=== PATIENT | female | born 1970 | race Caucasian/White ===

== ENCOUNTER 2024-09-15 12:14 | Emergency (ER) | payer OTHER, SELFPAY ==
[2024-09-15 12:20] VITALS: BP 118/78; PULSE 90; RESP 16; TEMP 37.2; O2SAT 99
--- NOTE | 2024-09-15 12:37 | ED.URI ---
HPI - URI/Sore Throat General Chief Complaint: Upper Respiratory Infection Stated Complaint: Cough/Fever/Headache/Diarrhea Time Seen by Provider: 09/15/24 12:37 Source: patient Mode of arrival: ambulatory Limitations: no limitations History of Present Illness HPI Narrative: 54 yo Female presents with complaint of sore throat, cough, nasal congestion, fatigue, body aches, fever for 4 days. Reports mild diarrhea. Did try waaf-xir-utvheha Robitussin to treat cough but did not like the way that made her feel. Is taking ibuprofen and Tylenol to treat pain. Denies nausea and vomiting. All systems reviewed and negative except as noted above. Related Data Allergies Allergy/AdvReac Type Severity Reaction Status Date / Time No Known Allergies Allergy Verified 09/15/24 12:34 Review of Systems Review of Systems: CONSTITUTIONAL: Reports fever, chills, or sweats. EYES: Denies visual changes, redness, or discharge. ENT: reports rhinorrhea, congestion, sore throat. Denies otalgia. CARDIOVASCULAR: Denies chest pain, palpitations, or edema. RESPIRATORY: reports cough. Denies dyspnea. GASTROINTESTINAL: Denies abdominal pain, nausea, vomiting, or diarrhea. GENITOURINARY: Denies dysuria or hematuria. SKIN: Denies rash or itching. MUSCULOSKELETAL: Denies back pain, joint pain, or myalgia. NEUROLOGIC: Denies headache, numbness, or weakness. PSYCHIATRIC: Denies anxiety or depression. All other systems reviewed are negative, except as documented in HPI. PMFSH Comments At time of signature, agree with nursing past medical, surgical, social and family history. There is no relevant family history pertinent to the presenting complaint. Exam Narrative: GENERAL: This is a well-nourished, well-developed patient, in no apparent distress. HEAD: normocephalic, atraumatic. EYES: PERRL. Sclera clear/white. Vision is grossly intact. EARS: External ears normal, auditory canals clear and without drainage, TMs normal without perforation. Hearing grossly intact. NOSE: External nose normal with clear nasal drainage with mild congestion THROAT: Mucous membranes moist, mild erythema without significant swelling or exudates NECK: Neck supple, non-tender without lymphadenopathy, masses or thyromegaly. CARDIOVASCULAR: Regular rate and rhythm without murmurs, gallops, or rubs. RESPIRATORY: Clear to auscultation. Breath sounds equal bilaterally. No wheezes, rales, or rhonchi. SKIN: warm, Dry, intact with no suspicious lesions or rash, good texture and turgor. NEURO: awake, alert, and oriented to person, place and time. There were no obvious focal neurologic abnormalities. EXTREMITIES: No joint tenderness, effusion, or edema noted. Course Course Level of Care: Express Care Visit Vital Signs Vital signs: Vital Signs Temperature 37.2 C 09/15/24 12:20 Pulse Rate 90 09/15/24 12:20 Respiratory Rate 16 09/15/24 12:20 Blood Pressure 118/78 09/15/24 12:20 Pulse Oximetry 99 09/15/24 12:20 Oxygen Delivery Room Air 09/15/24 12:20 Temperature 37.2 C 09/15/24 12:20 Pulse Rate 90 09/15/24 12:20 Respiratory Rate 16 09/15/24 12:20 Blood Pressure 118/78 09/15/24 12:20 Pulse Oximetry 99 09/15/24 12:20 Oxygen Delivery Room Air 09/15/24 12:20 reviewed MDM - URI/Sore Throat MDM Narrative Medical decision making narrative: patient positive for influenza A. COVID and strep negative. Strep culture ordered. Patient is well-appearing, nontoxic. Lungs clear to auscultation. Recommend she take lrbq-ldy-blwwgmx medications to treat viral symptoms. Patient is aware of diagnosis, understands and agrees to treatment plan. Anticipatory guidance given. Patient agrees to follow-up as directed and is aware of reasons to seek care at the emergency department. Portions of this record may have been created with voice recognition software Differential Diagnosis Differential diagnosis: Likely upper respiratory infection, sinusitis, viral infection, influenza and pharyngitis Discharge Plan Discharge Clinical Impression: Influenza A Patient Disposition: Home, Self-Care Condition: Stable Instructions: Influenza (ED) Additional Instructions: your influenza test was positive today. Influenza is a virus and symptoms may last 7-10 days. Taking tmbs-six-gsjkoxr medication to treat her symptoms such as DayQuil NyQuil cold and flu. Take ibuprofen every 6-8 hours as needed for pain and fever. Drink at least 64 oz of water a day. Follow-up with your primary care physician if symptoms are not improving. Patient Language: Icelandic Prescriptions: New benzonatate 200 mg capsule 200 mg PO TID PRN (Reason: cough) Qty: 20 0RF Follow-up/Referrals: Cat,Katherine Hinojosa PA [Primary Care Provider] - Time of Disposition: 12:44
[2024-09-15 12:44] LABS: EDSTREPNEGPOS1 Negative (Negative)
[2024-09-15 12:48] LABS: EDCOVIDSCREEN Negative (Negative); EDINFLUASCREEN Positive (Negative); EDINFLUBSCREEN Negative (Negative)
--- OUTSIDE RECORDS SUMMARY | 2024-09-22 18:19 | XMS_ITS | Continuity of Care Document ---
Author Organization [facility] Address [address] [place] [id number] Care Team Providers Care Machine Puller Name Role Phone Katherine Shelton Primary Care Physician Encounter [facility] Financial Number [id number] Date(s): 07/17/21 - 07/17/[address] [phone] [place] Encounter Diagnosis Encounter for screening mammogram for malignant neoplasm of breast(Final) - Discharge Disposition: Home or Self Care Attending Physician: Katherine Shelton Admitting Physician: Katherine Shelton Referring Physician: Katherine Shelton Problem List Diagnosis Diagnosis Type Effective Dates Health Status Cl inical Service Informant Encounter for screening mammogram for malignant neoplasm of breast 07/17/21 Non-Specified
--- OUTSIDE RECORDS SUMMARY | 2024-09-22 18:19 | XMS_ITS | Continuity of Care Document ---
Author Organization [facility] Address [address] [place] [phone] Care Team Providers Care Mill Platform Supervisor Name Role Phone Katherine Shelton Primary Care Physician Encounter [facility] Financial Number [id number] Date(s): 07/16/22 - 07/16/[address] [id number] Discharge Disposition: Home or Self Care Attending Physician: Katherine Shelton Admitting Physician: Katherine Shelton Referring Physician: Katherine Shelton Problem List Diagnosis Diagnosis Type Effective Dates Health Status Cl inical Service Informant Encounter for screening mammogram for malignant neoplasm of breast 07/16/22 Non-Specified Patient Care team information Care Team Personnel Name: Katherine Shelton Member Role: Primary Care Physician Address: Address: [address] [place] [id number] Care Team Related Persons Name: IKE ALVARES Address: home [address] [place], [id number]
--- OUTSIDE RECORDS SUMMARY | 2024-09-22 18:19 | XMS_ITS | Continuity of Care Document ---
Author Organization [facility] Address [address] [place] [id number] Care Team Providers Care Dental Hygienist Name Role Phone Katherine Shelton Primary Care Physician [phone] [facility] Financial Number [id number] Date(s): 07/20/23 - 07/20/[address] [phone] [place] Discharge Disposition: Home or Self Care Attending Physician: Katherine Shelton Referring Physician: Katherine Shelton Problem List Diagnosis Diagnosis Type Effective Dates Health Status Clinical Service Informant Other abnormal and inconclusive findings on diagnostic imaging of breast 07/20/23 Non-Specified Results Radiology Reports * Exam Date Time Procedure Performing Provider Status 07/20/23 10:22 AM US BREAST RIGHT LIMITED Jessika Mckeon Safety Deposit Boxes Custodian; Auth (Verified) Notes: (US BREAST RIGHT LIMITED) Reason For Exam: ABNORMAL MAMMOGRAM US BREAST RIGHT LIMITED EXAMINATION: RIGHT UNILATERAL DIGITAL DIAGNOSTIC MAMMOGRAM AND DIGITAL BREAST TOMOSYNTHESIS; RIGHT BREAST SONOGRAM HISTORY: Abnormal screening mammogram COMPARISON: Screening study 07/13/2023 TECHNIQUE: Full field digital mammographic views of the RIGHT breast were performed, including computer aided detection (CAD) and digital breast tomosynthesis (DBT). Directed ultrasound evaluation of the RIGHT breast was performed. BREAST PARENCHYMAL COMPOSITION: The breasts are heterogenously dense, which may obscure small masses. MAMMOGRAM FINDINGS: Mammographically, the focus of distortion does not persist. The rounded density in the right breast at 10 11:00 does persist. SONOGRAM FINDINGS: Directed ultrasound performed reveals a cluster of cysts. Dominant simple cyst measures 8 x 8 x 7 mm with additional smaller cysts measuring 4 mm in the vicinity. No other worrisome finding is noted. IMPRESSION: Benign findings Pending no interval breast problems, recommend resuming yearly screening mammography. Patient was notified of the findings and recommendations at the time of her examination. FINAL BI-RADS CATEGORY 2: BENIGN Letter sent: Normal -cat 09/20 . Dictating Physician: Ashlee Menendez MD Releasing Physician: Ashlee Menendez MD Signature Electronically Authorized Authorized Date/Time: 20-JUL-2023 10:37 am * Exam Date Time Procedure Performing Provider Status 07/20/23 9:51 AM MAMMO DIAG 3D UNILAT RT Gabriella Mcmahon [employer] Custodian; Auth (Verified) Notes: (MAMMO DIAG 3D UNILAT RT) Reason For Exam: ABNORMAL MAMMOGRAM MAMMO DIAG 3D UNILAT RT EXAMINATION: RIGHT UNILATERAL DIGITAL DIAGNOSTIC MAMMOGRAM AND DIGITAL BREAST TOMOSYNTHESIS; RIGHT BREAST SONOGRAM HISTORY: Abnormal screening mammogram COMPARISON: Screening study 07/13/2023 TECHNIQUE: Full field digital mammographic views of the RIGHT breast were performed, including computer aided detection (CAD) and digital breast tomosynthesis (DBT). Directed ultrasound evaluation of the RIGHT breast was performed. BREAST PARENCHYMAL COMPOSITION: The breasts are heterogenously dense, which may obscure small masses. MAMMOGRAM FINDINGS: Mammographically, the focus of distortion does not persist. The rounded density in the right breast at 10 11:00 does persist. SONOGRAM FINDINGS: Directed ultrasound performed reveals a cluster of cysts. Dominant simple cyst measures 8 x 8 x 7 mm with additional smaller cysts measuring 4 mm in the vicinity. No other worrisome finding is noted. IMPRESSION: Benign findings Pending no interval breast problems, recommend resuming yearly screening mammography. Patient was notified of the findings and recommendations at the time of her examination. FINAL BI-RADS CATEGORY 2: BENIGN Letter sent: Normal -cat 09/20 . Dictating Physician: Ashlee Menendez MD Releasing Physician: Ashlee Menendez MD Signature Electronically Authorized Authorized Date / Time: 20-JUL-2023 10:37 am Note * Event Display: Authorization to Treat Authored Date: * Event Display: Authorization to Treat Authored Date: * [facility] Rn Perioperative: PERFORM Event Display: ROI_Correspondence Authored Date: [id number] * [facility] Rn Perioperative: PERFORM Event Display: ROI_Correspondence Authored Date: [id number] Patient Care team information Care Team Personnel Name: Katherine Shelton Member Role: Primary Care Physician Address: Address: [address] [place], [place] [id number] Care Team Related Persons Name: IKE ALVARES Address: home [address] [place], [phone]
--- OUTSIDE RECORDS SUMMARY | 2024-09-22 18:20 | XMS_ITS | Encounter Summary ---
Author Organization [facility] Address [address] [place] [address]. [place], [place] [id number] [place] [id number] Care Team Providers Care Multiple Cut Off Saw Operator Name Role Phone Katherine Shelton Primary Care Provider [phone] Encounter Details Date Type Department Care Team (Latest Contact Info) Description 06/28/2023 Travel Social History Tobacco Use Types Packs/Day Years Used Date Smoking Tobacco: Former Cigarettes Smokeless Tobacco: Never Comments:stopped 25 yrs ago Alcohol Use Standard Drinks/Week Comments Yes 0 (1 standard drink = 0.6 oz pur e alcohol) socially PHQ-2 Answer Date Recorded Patient Health Questionnaire-2 Score 0 06/28/2023 Comments No Sex and Gender Information Value Date Recorded Sex Assigned at Not on file Legal Sex Female 6:43 PM CDT Gender Identity Not on file Sexual Orientation Not on file documented as of this encounter Plan of Treatment Not on file documented as of this encounter Visit Diagnoses Not on filedocumented in this encounter Additional Health Concerns Assessment Noted Time PHQ-9 Depression Total Score: 0 04/30/20 21 7:52 AM CDT documented as of this encounter Care Teams Multiple Cut Off Saw Operator Relationship Specialty [place] [address] [place] [address] PCP - General PHYSICIAN WALLPAPERER 11/07/19 documented as of this encounter
--- OUTSIDE RECORDS SUMMARY | 2024-09-22 18:20 | XMS_ITS | Clinical Summary ---
Author Organization [facility] Address [address] [place] [address]. [place], [place] [id number] [place] [id number] Care Team Providers Care Sewer Pipe Offbearer Name Role Phone Richard Shelton Primary Care Provider [phone] Allergies Active Allergy Reactions Criticality Noted Date Comments Sulfa Antibiotics Itching 11/07/2019 Medications fexofenadine 180 MG tablet Take 180 mg by mouth daily. Active Active Problems No known active problems Immunizations Name Administration Dates Next Due Flucelvax 6 Months+ (Prefilled Syringe) 06/12/20,07/17/2019 Influenza Adult (Generic) 07/26/2021,06/12/2020 Tdap (Historical Only-select from magnify glass) 12/26/2019 Family History Medical History Relation Comments Stroke Maternal Grandfather Colon Cancer Maternal Grandmother Heart Attack Paternal Grandfather Heart Disease Paternal Grandfather Multiple Sclerosis Paternal Grandmother Relation Status Comments Brother Alive Father Alive Maternal Grandfather Maternal Grandmother Mother Alive Paternal Grandfather Paternal Grandmother Social History Tobacco Use Types Packs/Day Years Used Date Smoking Tobacco: Former Cigarettes Smokeless Tobacco: Never Tobacco Cessation:Counseling Given: No Comments:stopped 25 yrs ago Alcohol Use Standard Drinks/Week Comments Yes 0 (1 standard drink = 0.6 oz pur e alcohol) socially PHQ-2 Answer Date Recorded Patient Health Questionnaire-2 Score 0 06/28/2023 Comments No Sex and Gender Information Value Date Recorded Sex Assigned at Not on file Legal Sex Female 6:43 PM CDT Gender Identity Not on file Sexual Orientation Not on file Last Filed Vital Signs Vital Sign Reading Time Taken Comments Blood Pressure 132/87 06/28/2023 1:42 PM CDT Pulse 71 06/28/2023 1:42 PM CDT Temperature 36.7 ??C (98.1 ??F) 06/28/2023 1:42 PM CD T Respiratory Rate 14 06/28/2023 1:42 PM CDT Oxygen Saturation 100% 06/28/2023 1:42 PM CDT Inhaled Oxygen Concentration - - Weight 73.9 kg (163 lb) 06/28/2023 1:42 PM CDT Height 172.7 cm (5' 8 ) 06/28/2023 1:42 PM CDT Body Mass Index 24.78 06/28/2023 1:42 PM CDT Plan of Treatment Health Maintenance Due Date Last Done Comments Hepatitis B Vaccines (1 of 3 - 19+ 3-dose series) 1991 Zoster Vaccines (1 of 2) 2022 COVID-19 Vaccine ( season) 2024 12/13/2020, 11/20/2020 Influenza Adult (#1) 2024 07/26/2021, 06/12/2020, 06/12/2020, Additional history exists Annual Physical 06/28/2024 06/28/2023, 09/2021, 04/30/2021, Additional history exists Colorectal Cancer Screening FIT-DNA (3 Years) 06/24/2025 06/24/2022, 06/24/2022 Mammogram Screening 07/20/2025 07/20/2023, 07/16/2022, 07/19/2018, Additional history exists Cervical Cancer Screening Pap Smear (Age 30 to 64) Every 3 Years 06/28/2026 06/28/2023, 05/20/2022, 04/30/2021, Additional history exists Cervical Cancer Screening Pap with HPV Testing (Age 30 to 64) Every 5 Years 06/28/2028 06/28/2023, 04/30/2021 Cervical Cancer Screening with HPV 06/28/2028 DTaP, Tdap and Td Vaccines (2 - Td or Tdap) 12/25/2029 12/26/2019 Hepatitis C 05/20/2032 Postponed from 1990 (Patient Refused) Meningococcal Vaccine Aged Out No martha marcelle eligible based on patient's age to complete this topic Pneumococcal Vaccine: Pediatrics (0 to 5 Years) and At-Risk Patients (6 to 64 Years) Aged Out No longer eligible based on patient's age to complete this topic RSV Immunizations Under 20 Months Aged Out No longer eligible based on patient's age to complete this topic Procedures Procedure Name Priority Date/Time Associated Diagnosis Comments MAMMOGRAM GENERIC (SCAN ORDER) 07/20/2023 CYTOPATH CERV/VAG THIN LAYER Routine 06/28/2023 10:11 AM CDT Cervical cancer screening HUMAN PAPILLOMAVIRUS, HIGH-RISK TYPES Routine 06/28/2023 8:00 AM CDT COLOGUARD (EXACT SCIENCE) Routine 06/24/2022 6:30 AM CDT Colon cancer screening from Last 3 Months or Most Recently Relevant to Health Maintenance Results * MAMMOGRAM GENERIC (07/20/2023) Anatomical Region Laterality Modality Other 07/20/2023 us [facility] Scanned SCANNING Final Resu lt * Cytopath Cerv/Vag Thin Layer (06/28/2023 10:11 AM CDT) THIN PREP PAP ? [facility] ?[address] ?[place] [phone] ? Department of Pathology ? Pathology Report ? CERVICAL/VAGINAL PAP SMEAR REPORT Name: TOPHER PEPE ? Age: 12 1970 (Age: 52) ?Location: [facility] Sex: F ?Collected Date: 06/28/2023 Hospital #: [id number] ?Date Received: 06/30/2023 Date Reported: 07/04/2023 Provider: RICHARD HALL INTERPRETATION CERVICAL/ENDOCERVI NAZIA: ? SATISFACTORY FOR EVALUATION. ENDOCERVICAL/TRANS FORMATION ZONE COMPONENT PRESENT. ? NEGATIVE FOR INTRAEPITHELIAL LESION OR MALIGNANCY. NEGATIVE FOR HIGH RISK HPV. The FDA approved Aptima HPV assay is an in vitro nucleic acid amplification test for the qualitative detection of E6/E7 viral messenger RNA (mRNA) from 14 high-risk types of human papillomavirus (HPV) in cervical specimens. ??The high-risk HPV types detected by the assay include: 16,18,31,33,35,39, 45,51,52,56,58,59, 66, and 68. Electronically Signed Out By SANJANA Harper (ASCP) CLINICAL HISTORY Z12.9 AND Z12.4 PAP TEST SCREENING ThinPrep Pap Test with HR HPV testing in patient > 30 years requested. Date of Last Menstrual Period: ? N/A Menstrual Status: Menstrual Suppression Contraceptive History: IUD SPECIMEN SUBMITTED CERVICAL/ENDOCERVI NAZIA ?Specimen Received:1 Thin Prep Vial, Image Assisted Pap (SMD) ? Please note: The Pap smear is not a diagnostic test. ??It is a screening test. ??Negative results on combined screening (Pap test and HPV-DNA) have a high negative predictive value (99.1-100 percent) for cervical cancer. ??The pap test is not effective in detecting cervical adenocarcinoma. [facility] 06/28/2023 10:1 1 AM CDT 06/30/2023 10:11 AM CDT Comment:CERVICAL/ENDOCERVICA L us Richard HALL PATHOLOGY/CYTOLOGY ORDERABLE S Final Result Performing Organization Address City/[facility]/ZIP Co de Phone Number [facility] [address] [place] [address], [place] [phone] * HUMAN PAPILLOMAVIRUS, HIGH-RISK TYPES (06/28/2023 8:00 AM CDT) SPECIMEN SOURCE CERVIX 06/30/2023 11:05 AM CDT [facility] HPV DNA HIGH RISK NEGATIVE NEGATIVE 07/01/2023 4:47 PM CDT [facility] Comment:SEE CYTOLOGY REPORT 06/28/2023 8:00 AM CDT us Richard HALL PATHOLOGY/CYTOLOGY ORDERABLE S Final Result [facility] [address] [place] [address], [place] [phone] * COLOGUARD (EXACT SCIENCE) (06/24/2022 6:30 AM CDT) COLOGUARD RESULT Negative Negative EXA Field Agent (CLIA #:[id number]) Comment: NEGATIVE TEST RESULT. A negative Cologuard result indicates a low likelihood that a colorectal cancer (CRC) or advanced adenoma (adenomatous polyps with more advanced pre-malignant features) ??is present. The chance that a person with a negative Cologuard test has a colorectal cancer is less than 1 in 1500 (negative predictive value >99.9%) or has an ??advanced adenoma is less than ??5.3% (negative predictive value 94.7%). These data are based on a prospective cross-sectional study of 10,000 individuals at average risk for colorectal cancer who were screened with both Cologuard and colonoscopy. (Jewel Mejia et al, N Engl J Med 2014;370(14):1286- 1297) The normal value (reference range) for this assay is negative. COLOGUARD RE-SCREENING RECOMMENDATION: Periodic colorectal cancer screening is an important part of preventive healthcare for asymptomatic individuals at average risk for colorectal cancer. ??Following a negative Cologuard result, the [place] [employer] and U.S. Multi-Society Task Force screening guidelines recommend a Cologuard re-screening interval of 3 years. References: [place] [employer] Guideline for Colorectal Cancer Screening: https://www.cancer.org/cancer/rshxu-exjenz-occzie/euumfqpql-qdwbgvvjn-jefcvbc/ac s-rec ommendations.html.; Jay HACKETT, Kari MCCARTHY, Chika PlascenciaK, Colorectal Cancer Screening: Recommendations for Physicians and Patients from the U.S. Multi-Society Task Force on Colorectal Cancer Screening , Am J Gastroenterology 2017; 112:4533-0455. TEST DESCRIPTION: Composite algorithmic analysis of stool DNA-biomarkers with hemoglobin immunoassay. ?? Quantitative values of individual biomarkers are not reportable and are not associated with individual biomarker result reference ranges. Cologuard is intended for colorectal cancer screening of adults of either sex, 45 years or older, who are at average-risk for colorectal cancer (CRC). Cologuard has been approved for use by the U.S. FDA. The performance of Cologuard was established in a cross sectional study of average-risk adults aged 50-84. Cologuard performance in patients ages 45 to 49 years was estimated by sub-group analysis of near-age groups. Colonoscopies performed for a positive result may find as the most clinically significant lesion: colorectal cancer [4.0%], advanced adenoma (including sessile serrated polyps greater than or equal to 1cm diameter) [20%] or non- advanced adenoma [31%]; or no colorectal neoplasia [45%]. These estimates are derived from a prospective cross-sectional screening study of 10,000 individuals at average risk for colorectal cancer who were screened with both Cologuard and colonoscopy. (Jewel Goodman al, N Engl J Med 2014;370(14):9678-5977.) Cologuard may produce a false negative or false positive result (no colorectal cancer or precancerous polyp present at colonoscopy follow up). A negative Cologuard test result does not guarantee the absence of CRC or advanced adenoma (pre-cancer). The current Cologuard screening interval is every 3 years. ([place] [employer] and U.S. Multi-Society Task Force). Cologuard performance data in a 10,000 patient pivotal study using colonoscopy as the reference method can be accessed at the following location: www.[employer]/results. Additional description of the Cologuard test process, warnings and precautions can be found at www.[employer].com. STOOL STOOL SPECIMEN / Unknown 06/24/2022 6:30 AM CDT 06/25/2022 1:19 PM CDT Richard HALL BODY FLUIDS AND STOOLS ORDER CASEY Final Result [facility] ([facility]) [address] [place] [address], LBE Security Master (CLIA #:[id number]) [address] [place] [address] from Last 3 Months or Most Recently Relevant to Health Maintenance Insurance [facility] Care Teams Sewer Pipe Offbearer Relationship Specialty [place] [address] [place] [address] PCP - General PHYSICIAN TRIAGE CLINICIAN 11/07/19
--- OUTSIDE RECORDS SUMMARY | 2024-09-22 18:20 | XMS_ITS | Clinical Summary ---
Author Organization [facility] Address [address] [place] [address] Care Team Providers Care Insurance Adviser Name Role Phone Danial Pereira MD Primary Care Provider [phone] [facility],non-owned Affiliates and Associated Physician Practices is amultiple site organization consisting of ambulatory clinics and hospital sitesin [place], [place], [place] and [place]. This disclosure is being madepursuant to the Care Everywhere program and may not contain all information available regarding this patient. Last updated 18.[facility] Social History Tobacco Use Types Packs/Day Years Used Date Smoking Tobacco: Never Assessed Sex and Gender Information Value Date Recorded Sex Assigned at Not on file Gender Identity Not on file Sexual Orientation Not on file Plan of Treatment Health Maintenance Due Date Last Done Comments COLOGUARD (AGES 45-75) - COL ON CA SCREENING 1972 COLON MONITORING 1972 COLONOSCOPY - COLON CA SCREENING 1972 CT COLONOGRAPHY - COLON CA SCREENING 1972 Colorectal Cancer Screening 1972 FIT - COLON CA SCREENING 1972 FLEX SIG - COLON CA SCREENING 1972 LIPID TESTING 1972 MAMMOGRAM 1972 PAP SMEAR 1972 HIV SCREENING 1987 HEPATITIS C SCREENING 08/19/1990 DTAP/TDAP/TD VACCINES (1 - Tdap) 1991 HEPATITIS B VACCINE (1 of 3 - 19+ 3-dose series) 1991 ZOSTER VACCINE (1 of 2) 2022 DEPRESSION SCREENING 09/19/2023 COVID-19 VACCINE (1 - 2023-2 5 season) 2024 INFLUENZA VACCINE (#1) 2024 HIB VACCINE Aged Out No longer eligi ble based on patient's age to complete this topic HPV VACCINE Aged Out No longer eligi ble based on patient's age to complete this topic MENINGOCOCCAL VACCINE Aged Out No martha marcelle eligible based on patient's age to complete this topic PNEUMOCOCCAL VACCINE Aged Out No long er eligible based on patient's age to complete this topic Care Teams Insurance Adviser Relationship Specialty Start Date End Date Danial Pereira MD [address] [place] [address] PCP - General 03/21/12
--- OUTSIDE RECORDS SUMMARY | 2024-09-22 18:20 | XMS_ITS | Encounter Summary ---
Author Organization [facility] Address [address] [place] [address]. [place], [place] [address] [place] [address] Care Team Providers Care Android Programmer Name Role Phone Katherine Shelton Primary Care Provider [phone] Reason for Visit * Reason Onset Date Comments Record Request 07/19/2023 Encounter Details Date Type Department Care Team (Late st Contact Info) Description 07/19/2023 Telephone [facility] Family & Internal Medicine [facility] [address] [place] [address] [place] [address] [place] [address] Record Request Social History Tobacco Use Types Packs/Day Years [...] on file documented as of this encounter Progress Notes * Janae Contreras MA - 07/27/2023 2:11 PM CST Received and sent to PCP L FILER * Janae Contreras MA - 07/19/2023 4:32 PM CDT I have faxed [facility] HIM for mammogram report documented in this encounter Plan of Treatment Not on file documented as of this encounter Visit Diagnoses Not on filedocumented in this encounter Additional Health Concerns Assessment Noted Time PHQ-9 Depression Total Score: 0 04/30/20 21 7:52 AM CDT documented as of this encounter Care Teams Android Programmer Relationship Specialty [place] [address] [place] [address] PCP - General PHYSICIAN DIRECTOR OF FINANCIAL REPORTING 11/07/19 documented as of this encounter
--- OUTSIDE RECORDS SUMMARY | 2024-09-22 18:20 | XMS_ITS | Encounter Summary ---
Author Organization [facility] Address [address] [place] [address]. [place], [place] [address] [place] [address] Care Team Providers Care Railroad Operator Name Role Phone Katherine Shelton Primary Care Provider [phone] Encounter Details Date Type Department Care Team (Latest Contact Info) Description 12/26/2019 12:03 PM CDT - 12/26/2019 11:59 PM CDT Hospital Encounter [facility] [address] [place] [address] [place] [address] [place] [address] Discharge Disposition: Home or Self Care (Routine Discharge) Social History Tobacco Use Types Packs/Day Years Used Date Smoking Tobacco: Former Cigarettes Smokeless Tobacco: Never Comments:stopped 25 yrs ago Alcohol Use Standard Drinks/Week Comments Yes 0 (1 standard drink = 0.6 oz pur e alcohol) socially Comments No Sex and Gender Information Value Date Recorded Sex Assigned at Not on file Legal Sex Female 6:43 PM CDT Gender Identity Not on file Sexual Orientation Not on file COVID-19 Exposure Response Date Recorded In the last month, have you been in contact with someone who was confirmed or suspected to have Coronavirus / COVID-19? No / Unsure 12/26/2019 7:53 AM CDT documented as of this encounter Medications at Time of Discharge fluticasone propionate (FLONASE) 50 MCG/ACT nasal sprayIndications: Bronchitis 1 spray by Nasal route daily. 18.2 mL 1 11/07/2019 05/20/2022 vitamin D2, ergocalciferol, 13088 UNITS capsule Take 50,000 Units by mouth every 7 days. 11/16/2018 05/20/2022 documented as of this encounter Progress Notes * Jillian Chisholm RN - 12/26/2019 2:05 PM CDT Pt made aware and v/u documented in this encounter Plan of Treatment Not on file documented as of this encounter Procedures Procedure Name Priority Date/Time Associated Diagnosis Comments TSH W/REFLEX Routine 12/26/2019 8:50 AM CDT [facility] COMPREHENSIVE METABOLIC PANEL Routine 12/26/2019 8:50 AM CDT Routine [facility] LIPID PANEL Routine 12/26/2019 8:50 AM CDT Routine general medical examination [facility] CBC W/DIFF AUTOMATED Routine 12/26/2019 8:50 AM CDT Routine general medical examination [facility] VITAMIN D, 25 OH Routine 12/26/2019 8:50 AM CDT Routine general medical examination at [facility] documented in this encounter Results * (ABNORMAL) CBC W/DIFF AUTOMATED (12/26/2019 8:50 AM CDT) WBC 6.1 4.4 - 11.0 x10'3/uL 12/26/2019 12:33 PM CDT [facility] RBC 5.11(H) 4.50 - 5.10 x10'6/uL 12/26/2019 12:33 PM CDT [facility] HGB 14.6 12.3 - 15.3 G/DL 12/26/2019 12:33 PM CDT [facility] HCT 44.8(H) 35.9 - 44.6 % 12/26/2019 12:33 PM CDT [facility] MCV 87.7 80.0 - 96.0 FL 12/26/2019 12:33 PM T [facility] MCH 28.6 25.3 - 30.9 PG 12/26/2019 12:33 PM T [facility] MCHC 32.6 31.0 - 34.1 G/DL 12/26/2019 12:33 PM T [facility] RDW 12.2(L) 12.4 - 15.1 % 12/26/2019 12:33 PM T [facility] PLT 269 151 - 353 x10'3/uL 12/26/2019 12:33 PM [facility] MPV 10.6 9.6 - 12.0 FL 12/26/2019 12:33 PM [facility] RBC MORPHOLOGY NORMAL 12/26/2019 12:33 PM [facility] PLT MORPH. NORMAL 12/26/2019 12:33 PM [facility] WBC MORPHOLOGY NORMAL 12/26/2019 12:33 PM [facility] LYMPHOCYTES % 36.7 15.8 - 45.0 % 12/26/2019 12:33 PM T [facility] NEUTROPHILS % 51.8 42.1 - 71.9 % 12/26/2019 12:33 PM T [facility] MONOCYTES % 9.3 5.7 - 12.5 % 12/26/2019 12:33 PM T [facility] EOSINOPHILS 1.8 0.0 - 5.6 % 12/26/2019 12:33 PM [facility] BASOPHILS 0.2 0.0 - 1.3 % 12/26/2019 12:33 PM T [facility] ABS. NEUTROPHILS TOTAL 3.17 1.40 - 6.00 x10'3/uL 12/26/2019 12:33 PM CDT [facility] IMMATURE GRANS % 0.2 0.0 - 0.5 % 12/26/2019 12:33 PM CDT [facility] ABS. LYMPHOCYTES 2.24 0.80 - 4.70 x10'3/uL 12/26/2019 12:33 PM CDT [facility] 12/26/2019 8:50 AM CDT us Katherine HALL LABORATORY Final Result Performing Organization Address [facility] Co de Phone Number [facility] [address] [place] [id number], [place] [phone] * VITAMIN D, 25 OH (12/26/2019 8:50 AM CDT) VITAMIN D 25 HYDROXY S/P/B 47 30 - 100 NG/ML 12/27/2019 3:28 PM CDT [facility] Comment: ? INTERPRETATION ? DEFICIENT ??<20 ? INSUFFICIENT 20-29 ?SUFFICIENT 30-100 12/26/2019 8:50 AM CDT us Katherine HALL LABORATORY Final Result Performing Organization Address [facility]/ZIP Co de Phone Number [facility] [address] [place] [address], [place] [phone] * TSH W/REFLEX (12/26/2019 8:50 AM CDT) TSH 2.949 0.358 - 3.74 uIU/ML 12/26/2019 1:09 PM CDT [facility] Comment: HIGH DOSES OF BIOTIN MAY INTERFERE WITH THIS TEST RESULT. CORRELATION TO CLINICAL HISTORY AND PRESENTATION RECOMMENDED. FREE T4 NOT INDICATED 12/26/2019 8:50 AM CDT Katherine HALL LABORATORY Final Result [facility] [address] [place] [address], * (ABNORMAL) COMPREHENSIVE METABOLIC PANEL (12/26/2019 8:50 AM CDT) GLUCOSE 90 70 - 99 MG/DL 12/26/2019 1:09 PM CDT [facility] BUN 15 7 - 18 MG/DL 12/26/2019 1:09 PM CDT [facility] CREATININE S/P/B 0.85 0.55 - 1.02 MG/DL 12/26/2019 1:09 PM CDT [facility] SODIUM S/P/B 143 136 - 145 MMOL/L 12/26/2019 1:09 PM T [facility] POTASSIUM S/P/B 4.3 3.5 - 5.1 MMOL/L 12/26/2019 1:09 PM T [facility] CHLORIDE S/P/B 104 100 - 108 MMOL/L 12/26/2019 1:09 PM T [facility] CO2 29.9 21 - 32 MMOL/L 12/26/2019 1:09 PM T [facility] CALCIUM S/P/B 9.3 8.5 - 10.1 MG/DL 12/26/2019 1:09 PM CDT [facility] BILIRUBIN TOTAL S/P/B 0.4 0.2 - 1.2 MG/DL 12/26/2019 1:09 PM CDT [facility] TOTAL PROTEIN S/P/B 8.0 6.4 - 8.2 G/DL 12/26/2019 1:09 PM T [facility] ALBUMIN S/P/B 4.4 3.4 - 5.0 G/DL 12/26/2019 1:09 PM T [facility] AST 20 15 - 37 U/L 12/26/2019 1:09 PM T [facility] ALT 26 14 - 55 U/L 12/26/2019 1:09 PM T [facility] ALKALINE PHOSPHATASE S/P/B 109 50 - 136 U/L 12/26/2019 1:09 PM [facility] ANION GAP 9.1 5 - 15 MMOL/L 12/26/2019 1:09 PM [facility] BUN CREATININE RATIO 17.6 6 - 26 12/26/2019 1:09 PM [facility] A/G RATIO 1.2 1.0 - 2.0 RATIO 12/26/2019 1:09 PM T [facility] EGFR NON-AFR. AMER. 82(L) >90 ML/MIN/1.7 3 M2 12/26/2019 1:09 PM [facility] EGFR AFR. AMER. >90 >90 ML/MIN/1.7 3 M2 12/26/2019 1:09 PM T [facility] Comment: NOTE: eGFR is not calculated for patients <18 years of age. This is an estimated GFR (CKD EPI) and should not be used for calculating drug doses. 12/26/2019 8:50 AM CDT us Katherine HALL LABORATORY Final Result [facility] [address] [place] [address], [place] [phone] * (ABNORMAL) LIPID PANEL (12/26/2019 8:50 AM CDT) [facility] Signature CHOLESTEROL 250(H) <200.0 MG/DL 12/26/2019 1:09 PM CDT [facility] TRIGLYCERIDES 82 <150 MG/DL 12/26/2019 1:09 PM T [facility] HDL 73 >40.0 MG/DL 12/26/2019 1:09 PM T [facility] LDL (CALCULATED) 161(H) <100 MG/DL 12/26/2019 1:09 PM T [facility] NON HDL CHOLESTEROL 177(H) <130 MG/DL 12/26/2019 1:09 PM T [facility] CHOL/HDL RATIO 3.4 0.0 - 4.5 12/26/2019 1:09 PM T [facility] VLDL CALCULATION 16 5 - 55 MG/DL 12/26/2019 1:09 PM [facility] LIPID INTERPRETATION 12/26/2019 1:09 PM [facility] Comment: [facility] REPORT RECOMMENDATIONS: ?ADULT ?CHILD ??LOW RISK: ?CHOLESTEROL ? <200 ? <170 ?TRIGLYCERIDE ?<150 ?--- ?HDL ? >=60 ?--- ?LDL ? <100 ? <110 ??BORDERLINE: ?CHOLESTEROL ? 200-239 ?? 170-199 ?TRIGLYCERIDE ?150-199 ? --- ?HDL ?40-59 ?--- ?LDL ? 100-159 ?? 110-129 ??HIGH RISK: ?CHOLESTEROL ? >=240 ?>=200 ?TRIGLYCERIDE ?>=200 ? --- ?HDL ?<40 ?--- ?LDL ? >=160 ?>=130 12/26/2019 8:50 AM CDT us Katherine HALL LABORATORY Final Result Performing Organization Address City/State/[facility] Co de Phone Number [facility] [address] [place] [address], documented in this encounter Visit Diagnoses Diagnosis Routine general medical examination at a health care facility documented in this encounter Care Teams Railroad Operator Relationship Specialty [place] [address] [place] [address] PCP - General PHYSICIAN BOLT MAKER 11/07/19 documented as of this encounter
--- OUTSIDE RECORDS SUMMARY | 2024-09-22 18:20 | XMS_ITS | Encounter Summary ---
Author Organization [facility] Address [address] [place] [address]. [place] [address] [place] [address] Care Team Providers Care Director Risk Name Role Phone Katherine Shelton Primary Care Provider + [phone] Encounter Details Date Type Department Care Team (Latest Contact Info) Description 05/20/2022 Travel Social History Tobacco Use Types Packs/Day Years Used Date Smoking Tobacco: Former Cigarettes Smokeless Tobacco: Never Comments:stopped 25 yrs ago Alcohol Use Standard Drinks/Week Comments Yes 0 (1 standard drink = 0.6 oz pur e alcohol) socially PHQ-2 Answer Date Recorded PHQ-2 Score - If the patient scores above 3, please move on to questions 3-9 0 05/20/2022 Comments No Sex and Gender Information Value Date Recorded Sex Assigned at Not on file Legal Sex Female 6:43 PM CDT Gender Identity Not on file Sexual Orientation Not on file COVID-19 Exposure Response Date Recorded In the last 10 days, have yo u been in contact with someone who was confirmed or suspected to have Coronavirus/COVID-19? No / Unsure 05/20/2022 8:56 AM CDT documented as of this encounter Plan of Treatment Not on file documented as of this encounter Visit Diagnoses Not on filedocumented in this encounter Additional Health Concerns Assessment Noted Time PHQ-9 Depression Total Score: 0 04/30/20 21 7:52 AM CDT documented as of this encounter Care Teams Director Risk Relationship Specialty [place] [address] [place] [address] PCP - General PHYSICIAN TRANSFER DRIVER 11/07/19 documented as of this encounter
--- OUTSIDE RECORDS SUMMARY | 2024-09-22 18:20 | XMS_ITS | Encounter Summary ---
Author Organization [facility] Address [address] [place] [address]. [place], [place] [address] [place] [address] Care Team Providers Care Pit Worker Power Shovel Name Role Phone Katherine Shelton Primary Care Provider Encounter Details Date Type Department Care Team (Latest Contact Info) Description 11/07/2019 Travel Social History Tobacco Use Types Packs/Day [...] Diagnoses Not on filedocumented in this encounter Care Teams Pit Worker Power Shovel Relationship Specialty [place] [address] [place] [address] PCP - General PHYSICIAN SINGING MESSENGER 11/07/19 documented as of this encounter
--- OUTSIDE RECORDS SUMMARY | 2024-09-22 18:20 | XMS_ITS | Encounter Summary ---
Author Organization [facility] Address [address] [place] [address]. [place], [place] [address] [place] [address] Care Team Providers Care Geothermal Installer Name Role Phone Richard Shelton Primary Care Provider + [phone] Encounter Details Date Type Department Care Team (Latest Contact Info) Description 05/20/2022 2:46 PM CDT - 05/20/2022 11:59 PM CDT Hospital Encounter [facility] [address] [place] [address] [place] [address] [place] [address] Discharge Disposition: Home or Self Care (Routine [...] this encounter Medications at Time of Discharge fexofenadine 180 MG tablet Take 180 mg by mouth daily. documented as of this encounter Plan of Treatment Not on file documented as of this encounter Procedures Procedure Name Priority Date/Time Associated Diagnosis Comments CYTOPATH CERV/VAG THIN LAYER Routine 05/20/2022 9:30 AM CDT documented in this encounter Results * Cytopath Cerv/Vag Thin Layer (05/20/2022 9:30 AM CDT) THIN PREP PAP ? [facility] ?[address] ?[place] [address] ? Department of Pathology ? Pathology Report ? CERVICAL/VAGINAL PAP SMEAR REPORT Name: TOPHER PEPE ? Age: 12 1970 (Age: 51) ?Location: [facility] Sex: F ?Collected Date: 05/20/2022 Hospital #: [id number] ?Date Received: 05/25/2022 Date Reported: 05/26/2022 Provider: RICHARD HALL INTERPRETATION CERVICAL/ENDOCERVI NAZIA: ? SATISFACTORY FOR EVALUATION. ENDOCERVICAL/TRANS FORMATION ZONE COMPONENT PRESENT. ? NEGATIVE FOR INTRAEPITHELIAL LESION OR MALIGNANCY. ATROPHY. Electronically Signed Out By SANJANA Harper (ASCP) CLINICAL HISTORY Z12.4 SCREENING PAP TEST ThinPrep Pap Test Only Date of Last Menstrual Period: ? UNKNOWN Menstrual Status: Regular SPECIMEN SUBMITTED CERVICAL/ENDOCERVI NAZIA ?Specimen Received:1 Thin Prep Vial, Image Assisted Pap (SMD) ? Please note: The Pap smear is not a diagnostic test. ??It is a screening test. ??Negative results on combined screening (Pap test and HPV-DNA) have a high negative predictive value (99.1-100 percent) for cervical cancer. ??The pap test is not effective in detecting cervical adenocarcinoma. [facility] 05/20/2022 9:30 AM CDT 05/25/2022 9:30 AM CDT Comment:CERVICAL/ENDOCERVICA L us Richard HALL PATHOLOGY/CYTOLOGY ORDERABLE S Final Result [facility] [address] [place] [address], documented in this encounter Visit Diagnoses Diagnosis Cervical cancer screening Screening for malignant neoplasm of the cervix documented in this encounter Additional Health Concerns Assessment Noted Time PHQ-9 Depression Total Score: 0 04/30/20 21 7:52 AM CDT documented as of this encounter Care Teams Geothermal Installer Relationship Specialty [place] [address] [place] [address] PCP - General PHYSICIAN BURIAL VAULT DELIVERER AND INSTALLER 11/07/19 documented as of this encounter
--- OUTSIDE RECORDS SUMMARY | 2024-09-22 18:20 | XMS_ITS | Encounter Summary ---
Author Organization [facility] Address [address] [place] [address]. 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 Family & Internal Medicine [facility] [address] [place] [address] [place] [address] [place] [address] News Correspondent Exam (doing well overall) Social History Tobacco Use Types Packs/Day Years [...] AM CDT documented as of this encounter Last Filed Vital Signs Vital Sign Reading Time Taken Comments Blood Pressure 124/72 12/26/2019 8:01 AM CDT Pulse 77 12/26/2019 8:01 AM CDT Temperature - - Respiratory Rate 18 12/26/2019 8:01 AM CDT Oxygen Saturation 97% 12/26/2019 8:01 AM CDT Inhaled Oxygen Concentration - - Weight 74.8 kg (165 lb) 12/26/2019 8:01 AM CDT Height 172.7 cm (5' 8 ) 12/26/2019 8:01 AM CDT Body Mass Index 25.09 12/26/2019 8:01 AM CDT documented in this encounter Progress Notes * RAFAEL Garcia - 12/26/2019 8:00 AM CDT Images from the original note were not included. 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 (Menstrual status: IUD). due out in Apr Last Pap smear done elsewhere over a year ago desires another ROS: Review of Systems Feeling well. Denies headaches, vision or hearing problems. No recent colds or flus, denies symptoms suggestive of allergies. Denies dysphagia, heartburn or indigestion. No dyspnea or chest pain on exertion. No nausea, abdominal pain, change in bowel habits, black or bloody stools. No urinary tractsymptoms. No muscle or joint aches or pains. No foot or leg edema. No numbness, tingling,or weakness. No anxiety or depressive symptoms, Sleeping well. No significant weight gain or loss. No fatigue. Medications: Outpatient Medications Marked as Taking for the 12/26/19 encounter (Office Visit) with RAFAEL Garcia Medication Sig Dispense Refill ??? vitamin D2, ergocalciferol, [address] UNITS capsule Take 50,000 Units by mouth every 7 days. Allergies Allergen Reactions ??? Sulfa Antibiotics Itching Past Medical History: Diagnosis Date ??? Melanoma (CMS/HCC) on leg ??? Uterine fibroid Past Surgical History: Procedure Laterality Date ??? EXCIS UTERINE FIBROID,VAG APPRCH ??? TONSILLECTOMY ??? TOOTH EXTRACTION Social History Tobacco Use ??? Smoking status: Former Smoker Types: Cigarettes ??? Smokeless tobacco: Never Used ??? Tobacco comment: stopped 25 yrs ago Substance Use Topics ??? Alcohol use: Yes Comment: socially ??? Drug use: Never Family History Problem Relation Name Age of Onset ??? Colon Cancer Maternal Grandmother ??? Stroke Maternal Grandfather ??? Multiple Sclerosis Paternal Grandmother ??? Heart Disease Paternal Grandfather ??? Heart Attack Paternal Grandfather Family Status Relation Name Status ??? Mother Alive ??? Father Alive ??? Brother Alive ??? MGM ??? MGF ??? PGM ??? PGF Physical Exam Constitutional: She is oriented to person, place, and time. She appears well- developed and well-nourished. HENT: Head: Normocephalic. Nose: Nose normal. Mouth/Throat: Oropharynx is clear and moist. Eyes: Pupils are equal, round, and reactive to light. Neck: No JVD present. No thyromegaly present. Cardiovascular: Normal rate, regular rhythm, normal heart sounds and intact distal pulses. No murmur heard. Pulmonary/Chest: No respiratory distress. She has no wheezes. She has no rales. She exhibits no tenderness. Abdominal: She exhibits no distension and no mass. There is no tenderness. There is no rebound and no guarding. No enlargement of the spleen or liver. BREAST EXAM: bilateral no lump or mass noted no tenderness no dimpling no retraction Genitourinary: external genitalia no lesions normal appearance, no urethral masses Bladder not distended. Vagina normal no cystocele or rectocele noted and uterus normal contour and size No adnexal masses or enlargement noted. No vaginal discharge found. Cervix pink no lesions strings iud intact. vagina pink Digital Rectal exam shows guaiac negative for occult blood, no rectal masses, no hemorrhoids and normal sphincter tone and normal appearing anus Musculoskeletal: Normal range of motion. She exhibits no edema, tenderness or deformity. Lymphadenopathy: She has no cervical adenopathy. Neurological: She is alert and oriented to person, place, and time. Skin: No rash noted. No erythema. Psychiatric: She has a normal mood and affect. Her behavior is normal. Thought content normal. No flowsheet data found. Vitals: 12/26/19 0801 BP: 124/72 Pulse: 77 Body mass index is 25.09 kg/m??. ASSESSMENT: well woman Recommendations and Plan: Orders Placed This Encounter ??? VENIPUNC ARM DRAW ??? CBC W/DIFF AUTOMATED ??? VITAMIN D, 25 OH ??? TSH W/REFLEX ??? COMPREHENSIVE METABOLIC PANEL ??? LIPID PANEL ??? [67472] Adacel (Tdap) Take Calcium with Vitamin D 1200mg daily if not eating in diet. Do monthly self-breast exams. Genetic testing is available for patients with family history of cancer. It is strongly advised to have an annual flu shot in the fall, keep up to date with Tdap every 10 years and consider a Shingles Vaccine. She could obtain at most pharmacies. Have mammogram yearly, bone density every 2-3 years and colonoscopy every 5-10 years depending on history. Engage in daily exercise of low impact aerobic exercise 45-60 minutes 4-5 times weekly. Avoid tobacco and illicit drugs as well as using moderation with alcohol intake less than 1-2 8 oz beverages daily. This lifestyle behavior pattern will lead to less health conditions and longer life span. If Body Mass Index greater than 25 weight watchers or dietary consult advise If PAP is normal, next PAP is due in 3-5 years. Follow up with Primary Care needs if any abnormalities are noted. Mammograms should continue annually age 50-70, discussed recommendation to start baseline at 40 and reviewed her Family Risk Factors for Breast Cancer. Katherine Shelton PA-C evaluated and Dr Wilfrido De Oliveira reviewed and agrees with plan. Cosigned by Wilfrido De Oliveira MD at 12/26/2019 10:39 AM CDT documented in this encounter Plan of Treatment Scheduled Orders Name Type Priority Associated Diagnoses Orde r Schedule Cytopath Cerv/Vag Thin Layer Pathology and Cytology Routine Encounter for Papanicolaou smear for cervical cancer screening Expected: 12/26/2019, Expires: 12/25/2020 documented as of this encounter Procedures Procedure Name Priority Date/Time Associated Diagnosis Comments COLLECTION VENOUS BLOOD VENIPUNCTURE Routine 12/26/2019 8:59 AM CDT Routine general medical examination at a health care facility documented in this encounter Results * (ABNORMAL) LIPID PANEL (12/26/2019 8:50 AM CDT) CHOLESTEROL 250(H) <200.0 MG/DL 12/26/2019 1:09 PM [facility] TRIGLYCERIDES 82 <150 MG/DL 12/26/2019 1:09 PM [facility] HDL 73 >40.0 MG/DL 12/26/2019 1:09 PM [facility] LDL (CALCULATED) 161(H) <100 MG/DL 12/26/2019 1:09 PM [facility] NON HDL CHOLESTEROL 177(H) <130 MG/DL 12/26/2019 1:09 PM [facility] CHOL/HDL RATIO 3.4 0.0 - 4.5 12/26/2019 1:09 PM [facility] VLDL CALCULATION 16 5 - 55 MG/DL 12/26/2019 1:09 PM [facility] LIPID INTERPRETATION 12/26/2019 1:09 [facility] Comment: NIH CONCENSUS REPORT RECOMMENDATIONS: ?ADULT [...] ? >=160 ?>=130 12/26/2019 8:50 AM CDT [facility] Final Result Performing Organization Address City/State/[facility] Co de Phone Number [facility] [address] [place] [address], * (ABNORMAL) COMPREHENSIVE METABOLIC PANEL (12/26/2019 8:50 AM CDT) GLUCOSE 90 70 - 99 MG/DL 12/26/2019 1:09 PM CDT [facility] BUN 15 7 - 18 MG/DL 12/26/2019 1:09 PM CDT [facility] CREATININE S/P/B 0.85 0.55 - 1.02 MG/DL 12/26/2019 1:09 PM CDT [facility] SODIUM S/P/B 143 136 - 145 MMOL/L 12/26/2019 1:09 PM CDT [facility] POTASSIUM S/P/B 4.3 3.5 - 5.1 MMOL/L 12/26/2019 1:09 PM CDT [facility] CHLORIDE S/P/B 104 100 - 108 MMOL/L 12/26/2019 1:09 PM [facility] CO2 29.9 21 - 32 MMOL/L 12/26/2019 1:09 PM [facility] CALCIUM S/P/B 9.3 8.5 - 10.1 MG/DL 12/26/2019 1:09 PM [facility] BILIRUBIN TOTAL S/P/B 0.4 0.2 - 1.2 MG/DL 12/26/2019 1:09 PM [facility] TOTAL PROTEIN S/P/B 8.0 6.4 - 8.2 G/DL 12/26/2019 1:09 PM [facility] ALBUMIN S/P/B 4.4 3.4 - 5.0 G/DL 12/26/2019 1:09 PM [facility] AST 20 15 - 37 U/L 12/26/2019 1:09 PM [facility] ALT 26 14 - 55 U/L 12/26/2019 1:09 PM [facility] ALKALINE PHOSPHATASE S/P/B 109 50 - 136 U/L 12/26/2019 1:09 PM [facility] ANION GAP 9.1 5 - 15 MMOL/L 12/26/2019 1:09 PM [facility] BUN CREATININE RATIO 17.6 6 - 26 12/26/2019 1:09 PM [facility] A/G RATIO 1.2 1.0 - 2.0 RATIO 12/26/2019 1:09 PM [facility] EGFR NON-AFR. AMER. 82(L) >90 ML/MIN/1.7 3 M2 12/26/2019 1:09 PM [facility] EGFR AFR. AMER. >90 >90 ML/MIN/1.7 3 M2 12/26/2019 1:09 PM CDT [facility] Comment: NOTE: eGFR is not calculated for patients <18 years of age. This is an estimated GFR (CKD EPI) and should not be used for calculating drug doses. 12/26/2019 8:50 AM CDT us Katherine [facility] Final Result Performing Organization Address [facility] de Phone Number [facility] [address] [place] [address], [place] [phone] * TSH W/REFLEX (12/26/2019 8:50 AM CDT) TSH 2.949 0.358 - 3.74 uIU/ML 12/26/2019 1:09 PM CDT [facility] Comment: HIGH DOSES OF BIOTIN MAY INTERFERE WITH THIS TEST RESULT. CORRELATION TO CLINICAL HISTORY AND PRESENTATION RECOMMENDED. FREE T4 NOT INDICATED 12/26/2019 8:50 AM CDT us [facility] Final Result Performing Organization Address [facility] de Phone Number [facility] [address] [place] [address], [place] [phone] * VITAMIN D, 25 OH (12/26/2019 8:50 AM CDT) VITAMIN D 25 HYDROXY S/P/B 47 30 - 100 NG/ML 12/27/2019 3:28 PM CDT [facility] Comment: ? INTERPRETATION ? DEFICIENT ??<20 ? INSUFFICIENT 20-29 ?SUFFICIENT 30-100 12/26/2019 8:50 AM CDT us [facility] Final Result [facility] [address] [place] [address], * (ABNORMAL) CBC W/DIFF AUTOMATED (12/26/2019 8:50 AM CDT) WBC 6.1 4.4 - 11.0 x10'3/uL 12/26/2019 12:33 PM CDT [facility] RBC 5.11(H) 4.50 - 5.10 x10'6/uL 12/26/2019 12:33 PM CDT [facility] HGB 14.6 12.3 - 15.3 G/DL 12/26/2019 12:33 PM CDT [facility] HCT 44.8(H) 35.9 - 44.6 % 12/26/2019 12:33 PM CDT [facility] MCV 87.7 80.0 - 96.0 FL 12/26/2019 12:33 PM CDT [facility] MCH 28.6 25.3 - 30.9 PG 12/26/2019 12:33 PM CDT [facility] MCHC 32.6 31.0 - 34.1 G/DL 12/26/2019 12:33 PM CDT [facility] RDW 12.2(L) 12.4 - 15.1 % 12/26/2019 12:33 PM CDT [facility] PLT 269 151 - 353 x10'3/uL 12/26/2019 12:33 PM CDT [facility] MPV 10.6 9.6 - 12.0 FL 12/26/2019 12:33 PM CDT [facility] RBC MORPHOLOGY NORMAL 12/26/2019 12:33 PM CDT [facility] PLT MORPH. NORMAL 12/26/2019 12:33 PM CDT [facility] WBC MORPHOLOGY NORMAL 12/26/2019 12:33 PM CDT [facility] LYMPHOCYTES % 36.7 15.8 - 45.0 % 12/26/2019 12:33 PM CDT [facility] NEUTROPHILS % 51.8 42.1 - 71.9 % 12/26/2019 12:33 PM CDT [facility] MONOCYTES % 9.3 5.7 - 12.5 % 12/26/2019 12:33 PM CDT [facility] EOSINOPHILS 1.8 0.0 - 5.6 % 12/26/2019 12:33 PM CDT [facility] BASOPHILS 0.2 0.0 - 1.3 % 12/26/2019 12:33 PM CDT [facility] ABS. NEUTROPHILS TOTAL 3.17 1.40 - 6.00 x10'3/uL 12/26/2019 12:33 PM CDT [facility] IMMATURE GRANS % 0.2 0.0 - 0.5 % 12/26/2019 12:33 PM CDT [facility] ABS. LYMPHOCYTES 2.24 0.80 - 4.70 x10'3/uL 12/26/2019 12:33 PM T [facility] 12/26/2019 8:50 AM CDT us [facility] Final Result [facility] [address] [place] [address], [place] [phone] documented in this encounter Visit Diagnoses Diagnosis Well woman exam with routine gynecological exam- Primary Routine gynecological examination Routine general medical examination at a health care facility Need for bqtvlaomkq-aoikhad-rctzgtpxu (Tdap) vaccine Need for prophylactic vaccination with combined sedurejnkl-phqpxmp-seopnbcwt (DTP) vaccine Encounter for Papanicolaou smear for cervical cancer screening documented in this encounter Care Teams Perinatal Coordinator Relationship Specialty [place] [address] [place] [address] PCP - General PHYSICIAN CLINICAL PROFESSOR 11/07/19 documented as of this encounter
--- OUTSIDE RECORDS SUMMARY | 2024-09-22 18:20 | XMS_ITS | Encounter Summary ---
Author Organization [facility] Address [address] [place] [address]. [place], [place] [address] [place] [address] Care Team Providers Care Production Consultant Name Role Phone Katherine Shelton Primary Care Provider [phone] Encounter Details Date Type Department Care Team (Latest Contact Info) Description 12/26/2019 Travel Social History Tobacco Use Types Packs/Day [...] on filedocumented in this encounter Care Teams Production Consultant Relationship Specialty [place] [address] [place] [address] PCP - General PHYSICIAN DRAG CAR RACER 11/07/19 documented as of this encounter
--- OUTSIDE RECORDS SUMMARY | 2024-09-22 18:20 | XMS_ITS | Encounter Summary ---
Author Organization [facility] Address [address] [place] [address]. [place], [place] [address] [place] [address] Care Team Providers Care Inspector Fuel Hose Name Role Phone Katherine Shelton Primary Care Provider [phone] Encounter Details Date Type Department Care Team (Latest Contact Info) Description 04/30/2021 Travel Social History Tobacco Use Types Packs/Day Years Used Date Smoking Tobacco: Former Cigarettes Smokeless Tobacco: Never Comments:stopped 25 yrs ago Alcohol Use Standard Drinks/Week Comments Yes 0 (1 standard drink = 0.6 oz pur e alcohol) socially PHQ-2 Answer Date Recorded PHQ-2 Score - If the patient scores above 3, please move on to questions 3-9 0 04/30/2021 Comments No Sex and Gender Information Value Date Recorded Sex Assigned at Not on file Legal Sex Female 6:43 PM CDT Gender Identity Not on file Sexual Orientation Not on file COVID-19 Exposure Response Date Recorded In the last month, have you been in contact with someone who was confirmed or suspected to have Coronavirus / COVID-19? No / Unsure 04/30/2021 7:33 AM CDT documented as of this encounter Plan of Treatment Not on file documented as of this encounter Visit Diagnoses Not on filedocumented in this encounter Additional Health Concerns Assessment Noted Time PHQ-9 Depression Total Score: 0 04/30/20 21 7:52 AM CDT documented as of this encounter Care Teams Inspector Fuel Hose Relationship Specialty [place] [address] [place] [address] PCP - General PHYSICIAN CAMPGROUND MANAGER 11/07/19 documented as of this encounter
--- OUTSIDE RECORDS SUMMARY | 2024-09-22 18:20 | XMS_ITS | Encounter Summary ---
Author Organization [facility] Address [address] [place] [address]. [place], [place] [address] [place] [address] Care Team Providers Care Company Accountant Name Role Phone Katherine Shelton Primary Care Provider [phone] Reason for Referral * Imaging (Routine) - Closed Specialty Diagnoses / Procedures Referred By Contac t Referred To Contact Diagnoses Abnormal mammogram of right breast Procedures MG DIAG [place] [address] [place] [address] Phone: tel: fax: [place] [address] Phone: tel: Referral ID Status Reason Start Date Expiration Date Visits Re quested Visits Authorized [id number] Closed 07/18/2023 07/18/2024 1 1 Reason for Visit * Reason Onset Date Comments Orders 07/15/2023 Encounter Details Date Type Department Care Team (Late st Contact Info) Description 07/15/[address] [facility] Family & Internal Medicine [facility] [address] [place] [address] [place] [address] [place] [address] Orders Social History Tobacco Use Types Packs/Day Years [...] as of this encounter Progress Notes * Winifred Parmar RN - 07/18/2023 7:45 AM CDT Orders entered & faxed to number provided. * Winifred Parmar RN - 07/15/2023 12:05 PM CDT Phone number [phone] states that your phone call did not go through. Message sent to VSW team to obtain mammogram imaging from [facility] for diag mammo & US of right breast? * Bessie Dewey - 07/15/2023 11:42 AM CDT Prisca from [facility] called [phone] requesting a Rgt breast diag mammo and a rgt breast limited ultra sound diag code R92.8 fax # [phone] documented in this encounter Plan of Treatment Scheduled Orders Name Type Priority Associated Diagnoses Orde r Schedule MG DIAG W LUDIN RT DIGI MAMMO Routine Abnormal mammogram of right breast Expected: 07/18/2023, Expires: 09/17/2024 documented as of this encounter Visit Diagnoses Diagnosis Abnormal mammogram of right breast- Primary documented in this encounter Additional Health Concerns Assessment Noted Time PHQ-9 Depression Total Score: 0 04/30/20 21 7:52 AM CDT documented as of this encounter Care Teams Company Accountant Relationship Specialty [place] [address] [place] [address] PCP - General PHYSICIAN COOK BOX FILLER 11/07/19 documented as of this encounter
--- OUTSIDE RECORDS SUMMARY | 2024-09-22 18:20 | XMS_ITS | Encounter Summary ---
Author Organization [facility] Address [address] [place] [address]. [place], [place] [address] [place] [address] Care Team Providers Care Pediatric Speech Language Pathologist Name Role Phone Katherine Shelton Primary Care Provider [phone] Reason for Visit * Reason Onset Date Comments Record Request 02/02/2023 Encounter Details Date Type Department Care Team (Late st Contact Info) Description 02/02/2023 Telephone [facility] Family & Internal Medicine [facility] [address] [place] [address] [place] [address] [place] [address] Record Request Social History Tobacco [...] Progress Notes * Janae Contreras MA - 02/03/2023 4:23 PM CDT Received and sent to PCP * Janae Contreras MA - 02/02/2023 12:04 PM CDT I have faxed [facility] for mammogram report documented in this encounter Plan of Treatment Not on file documented as of this encounter Visit Diagnoses Not on filedocumented in this encounter Additional Health Concerns Assessment Noted Time PHQ-9 Depression Total Score: 0 04/30/20 21 7:52 AM CDT documented as of this encounter Care Teams Pediatric Speech Language Pathologist Relationship Specialty [place] [address] [place] [address] PCP - General PHYSICIAN ELEMENTARY SCHOOL BAND DIRECTOR 11/07/19 documented as of this encounter
--- OUTSIDE RECORDS SUMMARY | 2024-09-22 18:20 | XMS_ITS | Encounter Summary ---
Author Organization [facility] Address [address] [place] [address]. [place], [place] [id number] [place] [address] Care Team Providers Care Shed Hand Name Role Phone Katherine Shelton Primary Care Provider [phone] Encounter Details Date Type Department Care Team (Latest Contact Info) Description 04/30/2021 1:00 PM CDT - 04/30/2021 11:59 PM CDT Hospital Encounter [facility] [address] [place] [address] [place] [address] [place], [place] [id number] Discharge Disposition: Home or Self Care (Routine [...] tablet Take 180 mg by mouth daily. fluticasone propionate (FLONASE) 50 MCG/ACT nasal sprayIndications: Bronchitis 1 spray by Nasal route daily. 18.2 mL 1 11/07/2019 05/20/2022 vitamin D2, ergocalciferol, [address] UNITS capsule Take 50,000 Units by mouth every 7 days. 11/16/2018 05/20/2022 documented as of this encounter Plan of Treatment Not on file documented as of this encounter Procedures Procedure Name Priority Date/Time Associated Diagnosis Comments TSH W/REFLEX Routine 04/30/2021 8:38 AM CDT Routine general medical examination at a [facility] facility COMPREHENSIVE METABOLIC PANEL Routine 04/30/2021 8:38 AM CDT Routine general medical examination at a [facility] facility LIPID PANEL Routine 04/30/2021 8:38 AM CDT Routine general medical examination at [facility] facility CBC W/DIFF AUTOMATED Routine 04/30/2021 8:38 AM CDT Routine general medical examination at a [facility] facility VITAMIN D, 25 OH Routine 04/30/2021 8:38 AM CDT Routine general medical examination at [facility] facility documented in this encounter Results * (ABNORMAL) LIPID PANEL (04/30/2021 8:38 AM CDT) CHOLESTEROL 235(H) <200.0 MG/DL 04/30/2021 2:19 PM CDT [facility] TRIGLYCERIDES 71 <150 MG/DL 04/30/2021 2:19 PM CDT [facility] HDL 81 >40.0 MG/DL 04/30/2021 2:19 PM CDT [facility] LDL (CALCULATED) 140(H) <100 MG/DL 04/30/2021 2:19 PM CDT [facility] NON HDL CHOLESTEROL 154(H) <130 MG/DL 04/30/2021 2:19 PM CDT [facility] CHOL/HDL RATIO 2.9 0.0 - 4.5 04/30/2021 2:19 PM CDT [facility] VLDL CALCULATION 14 5 - 55 MG/DL 04/30/2021 2:19 PM CDT [facility] LIPID INTERPRETATION 04/30/2021 2:19 PM CDT [facility] Comment: NIH CONCENSUS REPORT RECOMMENDATIONS: ?ADULT ?CHILD ??LOW RISK: ?CHOLESTEROL ? <200 ? <170 ?TRIGLYCERIDE ?<150 ?--- ?HDL ? >=60 ?--- ?LDL ? <100 ? <110 ??BORDERLINE: ?CHOLESTEROL ? 200-239 ?? 170-199 ?TRIGLYCERIDE ?150-199 ? --- ?HDL ?40-59 ?--- ?LDL ? 100-159 ?? 110-129 ??HIGH RISK: ?CHOLESTEROL ? >=240 ?>=200 ?TRIGLYCERIDE ?>=200 ? --- ?HDL ?<40 ?--- ?LDL ? >=160 ?>=130 04/30/2021 8:38 AM CDT Katherine HALL LABORATORY Final Result [facility] [address] [place] [address], * (ABNORMAL) COMPREHENSIVE METABOLIC PANEL (04/30/2021 8:38 AM CDT) GLUCOSE 89 70 - 99 MG/DL 04/30/2021 2:19 PM CDT [facility] BUN 16 7 - 18 MG/DL 04/30/2021 2:19 PM CDT [facility] CREATININE S/P/B 0.71 0.55 - 1.02 MG/DL 04/30/2021 2:19 PM CDT [facility] SODIUM S/P/B 144 136 - 145 MMOL/L 04/30/2021 2:19 PM CDT [facility] POTASSIUM S/P/B 4.3 3.5 - 5.1 MMOL/L 04/30/2021 2:19 PM CDT [facility] CHLORIDE S/P/B 105 100 - 108 MMOL/L 04/30/2021 2:19 PM CDT [facility] CO2 31.0 21 - 32 MMOL/L 04/30/2021 2:19 PM CDT [facility] CALCIUM S/P/B 10.4(H) 8.5 - 10.1 MG/DL 04/30/2021 2:19 PM CDT [facility] BILIRUBIN TOTAL S/P/B 0.7 0.2 - 1.2 MG/DL 04/30/2021 2:19 PM T [facility] TOTAL PROTEIN S/P/B 7.9 6.4 - 8.2 G/DL 04/30/2021 2:19 PM T [facility] ALBUMIN S/P/B 4.4 3.4 - 5.0 G/DL 04/30/2021 2:19 PM T [facility] AST 28 15 - 37 U/L 04/30/2021 2:19 PM T [facility] ALT 21 14 - 55 U/L 04/30/2021 2:19 PM T [facility] ALKALINE PHOSPHATASE S/P/B 104 50 - 136 U/L 04/30/2021 2:19 PM [facility] ANION GAP 8.0 5 - 15 MMOL/L 04/30/2021 2:19 PM [facility] BUN CREATININE RATIO 22.5 6 - 26 04/30/2021 2:19 PM [facility] A/G RATIO 1.3 1.0 - 2.0 RATIO 04/30/2021 2:19 PM [facility] EGFR NON-AFR. AMER. >90 >90 ML/MIN/1.7 3 M2 04/30/2021 2:19 PM [facility] EGFR AFR. AMER. >90 >90 ML/MIN/1.7 3 M2 04/30/2021 2:19 PM [facility] Comment: NOTE: eGFR is not calculated for patients <18 years of age. This is an estimated GFR (CKD EPI) and should not be used for calculating drug doses. 04/30/2021 8:38 AM CDT us Katherine HALL LABORATORY Final Result [facility] [address] [place] [address], * TSH W/REFLEX (04/30/2021 8:38 AM CDT) Pathologist [facility] TSH 2.161 0.358 - 3.74 uIU/ML 04/30/2021 2:19 PM CDT [facility] Comment: HIGH DOSES OF BIOTIN MAY INTERFERE WITH THIS TEST RESULT. CORRELATION TO CLINICAL HISTORY AND PRESENTATION RECOMMENDED. FREE T4 NOT INDICATED 04/30/2021 8:38 AM CDT us Katherine HALL LABORATORY Final Result Performing Organization Address [facility] Co de Phone Number [facility] [address] [place] [address], * VITAMIN D, 25 OH (04/30/2021 8:38 AM CDT) [facility] VITAMIN D 25 HYDROXY S/P/B 36 30 - 100 NG/ML 04/30/2021 2:18 PM CDT [facility] Comment: ? INTERPRETATION ? DEFICIENT ??<20 ? INSUFFICIENT 20-29 ?SUFFICIENT 30-100 04/30/2021 8:38 AM CDT us Katherine HALL LABORATORY Final Result Performing Organization Address [facility]/ZIP Co de Phone Number [facility] [address] [place] [address], * (ABNORMAL) CBC W/DIFF AUTOMATED (04/30/2021 8:38 AM CDT) [facility] WBC 6.2 4.4 - 11.0 x10'3/uL 04/30/2021 1:25 PM CDT [facility] RBC 5.14(H) 4.50 - 5.10 x10'6/uL 04/30/2021 1:25 PM CDT [facility] HGB 14.9 12.3 - 15.3 G/DL 04/30/2021 1:25 PM CDT [facility] HCT 44.9(H) 35.9 - 44.6 % 04/30/2021 1:25 PM CDT [facility] MCV 87.4 80.0 - 96.0 FL 04/30/2021 1:25 PM CDT [facility] MCH 29.0 25.3 - 30.9 PG 04/30/2021 1:25 PM CDT [facility] MCHC 33.2 31.0 - 34.1 G/DL 04/30/2021 1:25 PM CDT [facility] RDW 12.2(L) 12.4 - 15.1 % 04/30/2021 1:25 PM T [facility] PLT 253 151 - 353 x10'3/uL 04/30/2021 1:25 PM T [facility] MPV 10.6 9.6 - 12.0 FL 04/30/2021 1:25 PM T [facility] RBC MORPHOLOGY NORMAL 04/30/2021 1:25 PM CDT [facility] PLT MORPH. NORMAL 04/30/2021 1:25 PM T [facility] WBC MORPHOLOGY NORMAL 04/30/2021 1:25 PM CDT [facility] LYMPHOCYTES % 32.6 15.8 - 45.0 % 04/30/2021 1:25 PM CDT [facility] NEUTROPHILS % 55.4 42.1 - 71.9 % 04/30/2021 1:25 PM CDT [facility] MONOCYTES % 9.4 5.7 - 12.5 % 04/30/2021 1:25 PM CDT [facility] EOSINOPHILS 2.1 0.0 - 5.6 % 04/30/2021 1:25 PM CDT [facility] BASOPHILS 0.3 0.0 - 1.3 % 04/30/2021 1:25 PM CDT [facility] ABS. NEUTROPHILS TOTAL 3.44 1.40 - 6.00 x10'3/uL 04/30/2021 1:25 PM CDT [facility] IMMATURE GRANS % 0.2 0.0 - 0.5 % 04/30/2021 1:25 PM CDT [facility] ABS. LYMPHOCYTES 2.02 0.80 - 4.70 x10'3/uL 04/30/2021 1:25 PM CDT [facility] 04/30/2021 8:38 AM CDT us Katherine HALL LABORATORY Final Result [facility] [address] [place] [address], documented in this encounter Visit Diagnoses Diagnosis Routine general medical examination at a health care facility documented in this encounter Additional Health Concerns Assessment Noted Time PHQ-9 Depression Total Score: 0 04/30/20 21 7:52 AM CDT documented as of this encounter Care Teams Shed Hand Relationship Specialty Start Date End Date Katherine Shelton, RAFAEL [address] [place] [address] PCP - General PHYSICIAN RECEPTIONIST/TELEPHONE OPERATOR 11/07/19 documented as of this encounter
--- OUTSIDE RECORDS SUMMARY | 2024-09-22 18:20 | XMS_ITS | Encounter Summary ---
Author Organization [facility] Address [address] [place] [address]. 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 Reviewed procedure with patient, will call/mychart patient to discuss results if abnormal. Will continue screening for ASCCP guidelines. If PAP is WNL, next PAP is due in 5 years > 30 years old, or 3 years between 21-29. Will continue to discuss breastcancer screening and screen per patient preference and guidelines. Self-breast exams are a level D recommendation by the USPSTF. Follow up with PCM if any abnormalities are noted. Mammograms should continue annually. Reviewed with the patient BMI, blood pressure, diet, exercise, and encouraged healthy lifestyle choices. Colon screening starting at 45. I recommended weight-bearing exercise to decrease risks of osteoporosis. Screened for substance use, risk factors for STIs, diet and exercise habits, and symptoms of depression. Recommended preventive immunizations according to age. documented in this encounter Progress Notes * RAFAEL Garcia - 06/28/2023 1:40 PM CDT Images from the original note were not included. 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 She really has nocomplaints today. Mammogram: gets at work Cervical cancer screening: Ordered Colonoscopy: last year cologuard Dexa: N/A Body mass index 24.78 Physical activity: Daily exercise Dental: Appointment twice a year with no concerns. Vision: Appointment once a year with no concerns Hearing: No Concerns Metabolic screening: Due STI: No risk or concerns Advanced Directive: Not completed and suggested scan to chart. Menopausal FSH last year indicated likelihood of it we will repeat FSH this year IUD is due for removal we need to know if she needs further contraceptive so we will repeat FSH to ensure she is not fertile. She was told to use a backup method until test results available LMP: No LMP recorded (lmp unknown). (Menstrual status: IUD). Last Pap smear desires ROS: Review of Systems Feeling well. Denies [...] weight gain or loss. No fatigue. Medications: No outpatient medications have been marked as taking for the 06/28/23 encounter (Office Visit) withRAFAEL Garcia. Review of patient's allergies indicates: Allergen Reactions Sulfa Antibiotics Itching Past Medical History: Diagnosis Date Melanoma ([facility]/HCC) ([facility]/HCC) on leg Uterine fibroid Past Surgical History: Procedure Laterality Date EXCIS UTERINE FIBROID,VAG APPRCH TONSILLECTOMY TOOTH EXTRACTION Social History Tobacco Use Smoking status: Former Types: Cigarettes Smokeless tobacco: Never Tobacco comments: stopped 25 yrs ago Vaping Use Vaping Use: Never used Substance Use Topics Alcohol use: Yes Comment: socially Drug use: Never Family History Problem Relation Name Age of Onset Colon Cancer Maternal Grandmother Stroke Maternal Grandfather Multiple Sclerosis Paternal Grandmother Heart Disease Paternal Grandfather Heart Attack Paternal Grandfather Family Status Relation Name Status Mother Alive Father Alive Brother Alive MGM MGF PGM PGF 05/20/2022 9:11 AM 06/28/2023 1:48 PM PHQ2/PHQ 9 DEPRESSION SCREEN QUESTIONAIRE Little interest or pleasure in doing things Not at all Feeling down, depressed, or hopeless Not at all Patient Health Questionnaire-2 Score 0 LITTLE INTEREST OR PLEASURE IN DOING THINGS 0-Not at All FEELING DOWN, DEPRESSSED,OR HOPELESS 0-Not at All PHQ2 DEPRESSION TOTAL SCORE 0 06/28/2023 1:49 PM KRISTA-7 Feeling nervous, anxious, or on edge 0 Not being able to stop or control worrying 0 Worrying too much about different things 0 Trouble relaxing 0 Being so restless that it is hard to sit still 0 Becoming easily annoyed or irritable 0 Feeling afraid as if something awful might happen 0 KRISTA-7 Total Score 0 How difficult have these problems made it for you to do your work, take care of things at home, or get along with other people? Not difficult at all Physical Exam Constitutional: She is oriented to [...] No enlargement of the spleen or liver. No evidence of abdominal or inguinal hernia noted BREAST EXAM: bilateral no lump or mass noted no tenderness no dimpling no retraction Genitourinary: external genitalia no lesions normal appearance, no urethral masses .Bladder not distended Vagina normal no cystocele or rectocele noted and uterus normal contour and size No adnexal masses or enlargement noted. No vaginal discharge found. Cervix pink no lesions, vagina pink Digital Rectal exam shows guaiac [...] Her behavior is normal. Thought content normal. Procedure-during the pelvic examination IUD strings were grasped and IUD was removed in entirety. The device appears to be fully intact without any missing parts. Patient tolerated procedure well. No data to display Vitals: 06/28/23 1342 BP: 132/87 Pulse: 71 Body mass index is 24.78 kg/m??. Diagnoses/Impression: 1. Cervical cancer screening Cytopath Cerv/Vag Thin Layer 2. Encounter for contraceptive management, unspecified type FSH, FOLLICLE STIM HORMONE 3. Routine general medical examination at a health care facility CBC W/DIFF AUTOMATED COMPREHENSIVE METABOLIC PANEL TSH W/REFLEX LIPID PANEL 4. Well woman exam 5. Encounter for IUD removal REMOVE IUD Orders Placed This Encounter REMOVE IUD CBC W/DIFF AUTOMATED COMPREHENSIVE METABOLIC PANEL TSH W/REFLEX LIPID PANEL FSH, FOLLICLE STIM HORMONE Cytopath Cerv/Vag Thin Layer Recommendations and Plan: Take Calcium with Vitamin D 1200mg daily [...] her Family Risk Factors for Breast Cancer. Portions of this note were dictated using [employer] speech recognition software. Occasional wrong wordor sound-alike substitutions may have occurred due to the inherent limitations of voice recognition software. Please read the chart carefully and recognize, using context, where the substitutions may have occurred. Richard Shelton PA-C evaluated and Dr Cynthia Rubio reviewed and agrees with plan. Cosigned by Cynthia Rubio MD at 06/30/2023 6:53 AM CDT documented in this encounter Plan of Treatment Scheduled Orders Name Type Priority Associated Diagnoses Orde r Schedule REMOVE IUD Procedures Routine Encounter for IUD removal Ordered: 06/28/2023 documented as of this encounter Results * FSH, FOLLICLE STIM HORMONE (06/28/2023 2:35 PM CDT) FSH 59.8 MIU/ML 06/28/2023 8:00 PM CDT [facility] Comment: REFERENCE RANGES FOR FEMALES: ??FOLLICULAR ? 3.5-12.5 ??MID-CYCLE ?4.7-21.5 ??LUTEAL ? 1.7-7.7 ??POSTMENOPAUSAL ?25.8-134.8 06/28/2023 2:35 PM CDT Richard HALL LABORATORY Final Result [facility] [address] [id number], * (ABNORMAL) LIPID PANEL (06/28/2023 2:35 PM CDT) CHOLESTEROL 255(H) <200.0 MG/DL 06/28/2023 5:21 PM CDT [facility] TRIGLYCERIDES 75 <150 MG/DL 06/28/2023 5:21 PM CDT [facility] HDL 82 >40.0 MG/DL 06/28/2023 5:21 PM CDT [facility] LDL (CALCULATED) 158(H) <100 MG/DL 06/28/2023 5:21 PM CDT [facility] NON HDL CHOLESTEROL 173(H) <130 MG/DL 06/28/2023 5:21 PM CDT [facility] CHOL/HDL RATIO 3.1 0.0 - 4.5 06/28/2023 5:21 PM CDT [facility] () [facility] VLDL CALCULATION 15 5 - 55 MG/DL 06/28/2023 5:21 PM CDT [facility]) [facility] LIPID INTERPRETATION 06/28/2023 5:21 PM CDT [facility]) [facility] Comment: NIH CONCENSUS REPORT RECOMMENDATIONS: ?ADULT ?CHILD ??LOW RISK: ?CHOLESTEROL ? <200 ? <170 ?TRIGLYCERIDE ?<150 ?--- ?HDL ? >=60 ?--- ?LDL ? <100 ? <110 ??BORDERLINE: ?CHOLESTEROL ? 200-239 ?? 170-199 ?TRIGLYCERIDE ?150-199 ? --- ?HDL ?40-59 ?--- ?LDL ? 100-159 ?? 110-129 ??HIGH RISK: ?CHOLESTEROL ? >=240 ?>=200 ?TRIGLYCERIDE ?>=200 ? --- ?HDL ?<40 ?--- ?LDL ? >=160 ?>=130 06/28/2023 2:35 PM CDT us Richard HALL LABORATORY Final Result Performing Organization Address [facility] Co de Phone Number [facility] [address] [place] [address], [place] [phone] * TSH W/REFLEX (06/28/2023 2:35 PM CDT) TSH 2.114 0.358 - 3.74 uIU/ML 06/28/2023 5:21 PM CDT [facility] Comment: HIGH DOSES OF BIOTIN MAY INTERFERE WITH THIS TEST RESULT. CORRELATION TO CLINICAL HISTORY AND PRESENTATION RECOMMENDED. FREE T4 NOT INDICATED 06/28/2023 2:35 PM CDT us Richard HALL LABORATORY Final Result Performing Organization Address [facility] Co de Phone Number [facility] [address] [place] [address], [place] [phone] * COMPREHENSIVE METABOLIC PANEL (06/28/2023 2:35 PM CDT) GLUCOSE 86 70 - 99 MG/DL 06/28/2023 5:21 PM CDT [facility] BUN 8 7 - 18 MG/DL 06/28/2023 5:21 PM CDT [facility] CREATININE S/P/B 0.68 0.55 - 1.02 MG/DL 06/28/2023 5:21 PM CDT [facility] SODIUM S/P/B 138 136 - 145 MMOL/L 06/28/2023 5:21 PM CDT [facility] POTASSIUM S/P/B 4.1 3.5 - 5.1 MMOL/L 06/28/2023 5:21 PM CDT [facility] CHLORIDE S/P/B 103 100 - 108 MMOL/L 06/28/2023 5:21 PM T [facility] CO2 28.1 21 - 32 MMOL/L 06/28/2023 5:21 PM [facility] CALCIUM S/P/B 9.5 8.5 - 10.1 MG/DL 06/28/2023 5:21 PM [facility] BILIRUBIN TOTAL S/P/B 0.4 0.2 - 1.2 MG/DL 06/28/2023 5:21 PM [facility] TOTAL PROTEIN S/P/B 7.8 6.4 - 8.2 G/DL 06/28/2023 5:21 PM [facility] ALBUMIN S/P/B 4.4 3.4 - 5.0 G/DL 06/28/2023 5:21 PM [facility] AST 17 15 - 37 U/L 06/28/2023 5:21 PM [facility] ALT 21 14 - 55 U/L 06/28/2023 5:21 PM [facility] ALKALINE PHOSPHATASE S/P/B 98 50 - 136 U/L 06/28/2023 5:21 PM [facility] ANION GAP 6.9 5 - 15 MMOL/L 06/28/2023 5:21 PM [facility] BUN CREATININE RATIO 11.8 6 - 26 06/28/2023 5:21 PM [facility] A/G RATIO 1.3 1.0 - 2.0 RATIO 06/28/2023 5:21 PM [facility] GFR ESTIMATE >90 >90 ML/MIN/1.7 3 M2 06/28/2023 5:21 PM CDT [facility] Comment: NOTE: eGFR is not calculated for patients <18 years of age. This is an estimated GFR calculation using the new CKD EPI creatinine equation without race and so does not require a correction factor for race. This estimated GFR should not be used for calculating drug doses. 06/28/2023 2:35 PM CDT Richard HALL LABORATORY Final Result [facility] [address] [place] [address], [place] [phone] * CBC W/DIFF AUTOMATED (06/28/2023 2:35 PM CDT) WBC 6.89 4.4 - 11.0 x10'3/uL 06/28/2023 5:03 PM CDT [facility] RBC 5.06 4.50 - 5.10 x10'6/uL 06/28/2023 5:03 PM CDT [facility] HGB 14.6 12.3 - 15.3 G/DL 06/28/2023 5:03 PM CDT [facility] HCT 44.2 35.9 - 44.6 % 06/28/2023 5:03 PM CDT [facility] MCV 87.4 80.0 - 96.0 FL 06/28/2023 5:03 PM CDT [facility] MCH 28.9 25.3 - 30.9 PG 06/28/2023 5:03 PM CDT [facility] MCHC 33.0 31.0 - 34.1 G/DL 06/28/2023 5:03 PM CDT [facility] RDW 12.4 12.4 - 15.1 % 06/28/2023 5:03 PM CDT [facility] PLT 279 151 - 353 x10'3/uL 06/28/2023 5:03 PM CDT [facility] MPV 10.1 9.6 - 12.0 FL 06/28/2023 5:03 PM CDT [facility] RBC MORPHOLOGY NORMAL 06/28/2023 5:03 PM CDT [facility] PLT MORPH. NORMAL 06/28/2023 5:03 PM CDT [facility] WBC MORPHOLOGY NORMAL 06/28/2023 5:03 PM CDT [facility] LYMPHOCYTES % 38.0 15.8 - 45.0 % 06/28/2023 5:03 PM CDT [facility] NEUTROPHILS % 51.5 42.1 - 71.9 % 06/28/2023 5:03 PM CDT [facility] MONOCYTES % 8.1 5.7 - 12.5 % 06/28/2023 5:03 PM CDT [facility] EOSINOPHILS 1.7 0.0 - 5.6 % 06/28/2023 5:03 PM CDT [facility] BASOPHILS 0.4 0.0 - 1.3 % 06/28/2023 5:03 PM CDT [facility] ABS. NEUTROPHILS 3.54 1.40 - 6.00 x10'3/uL 06/28/2023 5:03 PM CDT [facility] IMMATURE GRANS % 0.3 0.0 - 0.5 % 06/28/2023 5:03 PM CDT [facility] ABS. LYMPHOCYTES 2.62 0.80 - 4.70 x10'3/uL 06/28/2023 5:03 PM CDT [facility] 06/28/2023 2:35 PM CDT Richard D Billhartz PA LABORATORY Final Result [facility] () [facility] [address] [place] [address], * Cytopath Cerv/Vag Thin Layer (06/28/2023 10:11 AM CDT) THIN PREP PAP ? [facility] ?[address] ?[place] [address] ? Department of Pathology ? Pathology Report ? CERVICAL/VAGINAL PAP SMEAR REPORT Name: TOPHER PEPE ? Age: 12 1970 (Age: 52) ?Location: [facility] Sex: F ?Collected Date: 06/28/2023 [facility] #: [id number] ?Date Received: 06/30/2023 Date Reported: 07/04/2023 Provider: [...] is not effective in detecting cervical adenocarcinoma. [facility] () [facility] 06/28/2023 10:1 1 AM CDT 06/30/2023 10:11 AM CDT Comment:CERVICAL/ENDOCERVICA L us Richard HALL PATHOLOGY/CYTOLOGY ORDERABLE S Final Result [facility] [address] [place] [address], documented in this encounter Visit Diagnoses Diagnosis Cervical cancer screening- Primary Screening for malignant neoplasm of the cervix Encounter for contraceptive management, unspecified type documented in this encounter Additional Health Concerns Assessment Noted Time PHQ-9 Depression Total Score: 0 04/30/20 21 7:52 AM CDT documented as of this encounter Care Teams Opera Singer Relationship Specialty [place] [address] [place] [address] PCP - General PHYSICIAN CHEMICAL SALES REPRESENTATIVE 11/07/19 documented as of this encounter
--- OUTSIDE RECORDS SUMMARY | 2024-09-22 18:20 | XMS_ITS | Encounter Summary ---
Author Organization [facility] Address [address] [place] [address]. [place], [place] [id number] [place] [address] Care Team Providers Care Convention Planner Name Role Phone Katherine Shelton Primary Care Provider + [phone] Reason for Visit * Reason Onset Date Comments Information 12/03/2019 Encounter Details Date Type Department Care Team (Late st Contact Info) Description 12/03/2019 Telephone [facility] Family Medicine - [place] [address] [place] [address] [place] [address] [place], [place] [phone] Information Social History Tobacco Use Types Packs/Day Years [...] of this encounter Progress Notes * Janae Harp MA - 12/03/2019 2:33 PM CDT Contacted pt for pre-visit telephone call prior to upcoming appointment. Educated pt on respiratorysymptoms and need for further assessment by nurse team if present. Spoke to pt - does not have respiratory symptoms. Pt will keep appt documented in this encounter Plan of Treatment Not on file documented as of this encounter Visit Diagnoses Not on filedocumented in this encounter Care Teams Convention Planner Relationship Specialty [place] [address] [place] [address] PCP - General PHYSICIAN LOCKSTITCH FRONT MAKER 11/07/19 documented as of this encounter
--- OUTSIDE RECORDS SUMMARY | 2024-09-22 18:20 | XMS_ITS | Encounter Summary ---
Author Organization [facility] Address [address] [place] [address]. [place], [place] [id number] [place] [address] Care Team Providers Care Cone Cleaner Name Role Phone Katherine Shelton Primary Care Provider + [phone] Reason for Visit * Reason Comments Machine Bander And Cellophaner Exam WWEWould like to dis cuss getting lab orders Encounter Details Date Type Department Care Team (Late st Contact Info) Description 05/20/2022 9:20 AM CDT Office Visit [facility] Family & Internal Medicine [facility] [address] [place] [address] [place] [address] [place] [address] Machine Bander And Cellophaner Exam (WWE/Would like to discuss getting lab orders) Social History Tobacco Use Types Packs/Day Years [...] Sign Reading Time Taken Comments Blood Pressure 138/80 05/20/2022 9:31 AM CDT Pulse 76 05/20/2022 9:08 AM CDT Temperature 36.9 ??C (98.4 ??F) 05/20/2022 9:08 AM CD T Respiratory Rate 20 05/20/2022 9:08 AM CDT Oxygen Saturation 98% 05/20/2022 9:08 AM CDT Inhaled Oxygen Concentration - - Weight 74.4 kg (164 lb) 05/20/2022 9:08 AM CDT Height 172.7 cm (5' 8 ) 05/20/2022 9:08 AM CDT Body Mass Index 24.94 05/20/2022 9:08 AM CDT documented in this encounter Progress Notes * RAFAEL Garcia - 05/20/2022 9:20 AM CDT Images from the original note were not included. Reason for Visit: Machine Bander And Cellophaner Exam (WWE/Would like to discuss getting lab orders) Mamm [facility] every year June Exam Chaperoned By Mindy History of Present Illness: Teresa Pepe is a 51-year-old female here for WWE patient states he [facility]. She has an IUD and is wondering if sheis in menopause. She is also wondering about her wellness labs and we can do those today. Patient was told that the menopausal test that did not be wellness labs. And that I was not sure what wellness labs are covered by her insurance that she may want to check her benefits before running. We mutually decided not to do the vitamin D level. Menopausal LMP: No LMP recorded. (Menstrual status: IUD). Last Pap smear ROS: Review of Systems Feeling well. Denies [...] have been marked as taking for the 05/20/22 encounter (Office Visit) with RAFAEL Garcia. Allergies Allergen Reactions ??? Sulfa Antibiotics Itching Past Medical History: Diagnosis Date ??? Melanoma (CMS/HCC) on leg ??? Uterine fibroid Past Surgical History: Procedure Laterality Date ??? EXCIS UTERINE FIBROID,VAG APPRCH ??? TONSILLECTOMY ??? TOOTH EXTRACTION Social History Tobacco Use ??? Smoking status: Former Smoker Types: Cigarettes ??? Smokeless tobacco: Never Used ??? Tobacco comment: stopped 25 yrs ago Vaping Use ??? Vaping Use: Never used Substance Use Topics ??? Alcohol use: Yes [...] MGM ??? MGF ??? PGM ??? PGF PHQ-2 - Over the last 2 weeks, how often have you been bothered by any of the following problems? 1. Little Interest or pleasure in doing things: 0-Not at All 2. Feeling down,depressed,or hopeless: 0-Not at All PHQ-2 Score - If the patient scores above 3, please move on to questions 3-9: 0 Physical Exam Constitutional: She is oriented to [...] noted. No vaginal discharge found. Cervix pink positive strings no lesions, vagina pink Digital Rectal exam [...] content normal. No flowsheet data found. Vitals: 05/20/22 0908 05/20/22 0913 05/20/22 0931 Patient Position: Sitting Sitting BP Location: Left arm Right arm Cuff size: Adult Regular Adult Regular BP: (!) 144/91 (!) 149/83 138/80 Pulse: 76 Body mass index is 24.94 kg/m??. Diagnoses/Impression: 1. Amenorrhea FSH, FOLLICLE STIM HORMONE LH, LUTEINIZING HORMONE VENIPUNC ARM DRAW 2. Routine general medical examination at a health care facility CBC W/DIFF AUTOMATED TSH W/REFLEX COMPREHENSIVE METABOLIC PANEL LIPID PANEL VENIPUNC ARM DRAW 3. Colon cancer screening COLOGUARD (EXACT SCIENCE) 4. Cervical cancer screening CYTOPATH CERV/VAG THIN LAYER [[id number]] Orders Placed This Encounter ??? VENIPUNC ARM DRAW ??? CBC W/DIFF AUTOMATED ??? TSH W/REFLEX ??? COMPREHENSIVE METABOLIC PANEL ??? LIPID PANEL ??? FSH, FOLLICLE STIM HORMONE ??? LH, LUTEINIZING HORMONE ??? CYTOPATH CERV/VAG THIN LAYER [[id number]] ??? COLOGUARD (EXACT SCIENCE) Recommendations and Plan: We discussed that possibility of having IUD placed if she does not appear to be in menopause. She probably has about another year on the IUD patient thinks it was put in late in the year and she is going into her seventh year. If she is in the change I did not suggest that she remove the IUD to help next years visit just in case she develops any bleeding which is common at first feeling limited menopause. Take Calcium with Vitamin D 1200mg daily [...] Portions of this note were dictated using [employer] speech recognition software. Occasional wrong wordor sound-alike substitutions may have occurred due to the inherent limitations of voice recognition software. Please read the chart carefully and recognize, using context, where the substitutions may have occurred. Katherine Shelton PA-C evaluated and Dr Wilfrido De Oliveira reviewed and agrees with plan. Cosigned by Wilfrido De Oliveira MD at 05/20/2022 8:00 PM CDT documented in this encounter Plan of Treatment Not on file documented as of this encounter Procedures Procedure Name Priority Date/Time Associated Diagnosis Comments COLOGUARD (EXACT SCIENCE) Routine 06/24/2022 6:30 AM CDT Colon cancer screening COLLECTION VENOUS BLOOD VENIPUNCTURE Routine 05/20/2022 10:19 AM CDT Amenorrhea Routine general medical examination at a health care facility documented in this encounter Results * COLOGUARD (EXACT SCIENCE) (06/24/2022 6:30 AM CDT) COLOGUARD RESULT Negative Negative [facility] [employer] (CLIA #:[id number]) Comment: NEGATIVE TEST RESULT. A negative Cologuard [...] cancer. ??Following a negative Cologuard result, the [place] Cancer Society and U.S. Multi-Society Task Force screening guidelines recommend a Cologuard re-screening interval of 3 years. References: [place] [employer] Guideline for Colorectal Cancer Screening: https://www.cancer.org/cancer/hrhwk-acicjl-rbvyrr/qjmgipckh-etgecoarw-bofsdfn/ac s-rec ommendations.html.; Jay HACKETT, Kari MCCARTHY, Chika PlascenciaK, Colorectal Cancer Screening: Recommendations for Physicians and Patients from the U.S. Multi-Society Task Force on Colorectal Cancer Screening , Am J Gastroenterology 2017; 112:6719-3729. TEST DESCRIPTION: Composite algorithmic analysis of stool [...] screened with both Cologuard and colonoscopy. (Jewel Camacho. et al, N Engl J Med 2014;370(14):4770-5716.) Cologuard may produce a false negative or false positive result (no colorectal cancer or precancerous polyp present at colonoscopy follow up). A negative Cologuard test result does not guarantee the absence of CRC or advanced adenoma (pre-cancer). The current Cologuard screening interval is every 3 years. ([place] Cancer Society and U.S. Multi-Society Task Force). Cologuard performance data in a 10,000 patient pivotal study using colonoscopy as the reference method can be accessed at the following location: www.Interior Define/results. Additional description of the Cologuard test process, warnings and precautions can be found at www.cologuard.com. STOOL STOOL SPECIMEN / Unknown 06/24/2022 6:30 AM CDT 06/25/2022 1:19 PM CDT us Katherine HALL BODY FLUIDS AND STOOLS ORDER CASEY Final Result [facility] ([facility]) [address] [place] [address], [facility] (CLIA #:[id number]) [address] [place] [address] * LH, LUTEINIZING HORMONE (05/20/2022 10:19 AM CDT) Luteinizing Hormone 27.2 MIU/ML 05/20/2022 7:15 PM CDT [facility] Comment: REFERENCE RANGES FOR FEMALES: ??FOLLICULAR ? 2.4-12.6 ??MID-CYCLE ? 14.0-95.6 ??LUTEAL ? 1.0-11.4 ??POSTMENOPAUSAL ? 7.7-58.5 05/20/2022 10:1 9 AM CDT Katherine HALL LABORATORY Final Result Performing Organization Address [facility] Co de Phone Number [facility] [address] [place] [address], * FSH, FOLLICLE STIM HORMONE (05/20/2022 10:19 AM CDT) FSH 61.7 MIU/ML 05/20/2022 7:14 PM CDT [facility] Comment: REFERENCE RANGES FOR FEMALES: ??FOLLICULAR ? 3.5-12.5 ??MID-CYCLE ?4.7-21.5 ??LUTEAL ? 1.7-7.7 ??POSTMENOPAUSAL ?25.8-134.8 05/20/2022 10:1 9 AM CDT Katherine HALL LABORATORY Final Result Performing Organization Address City/[facility] Co de Phone Number [facility] [address] [place] [address], * (ABNORMAL) LIPID PANEL (05/20/2022 10:19 AM CDT) CHOLESTEROL 256(H) <200.0 MG/DL 05/20/2022 1:44 [facility] TRIGLYCERIDES 91 <150 MG/DL 05/20/2022 1:44 PM [facility] HDL 80 >40.0 MG/DL 05/20/2022 1:44 [facility] LDL (CALCULATED) 158(H) <100 MG/DL 05/20/2022 1:44 [facility] NON HDL CHOLESTEROL 176(H) <130 MG/DL 05/20/2022 1:44 [facility] CHOL/HDL RATIO 3.2 0.0 - 4.5 05/20/2022 1:44 [facility] VLDL CALCULATION 18 5 - 55 MG/DL 05/20/2022 1:44 [facility] LIPID INTERPRETATION 05/20/2022 1:44 [facility] Comment: NIH CONCENSUS REPORT RECOMMENDATIONS: ?ADULT ?CHILD ??LOW RISK: ?CHOLESTEROL ? <200 ? <170 ?TRIGLYCERIDE ?<150 ?--- ?HDL ? >=60 ?--- ?LDL ? <100 ? <110 ??BORDERLINE: ?CHOLESTEROL ? 200-239 ?? 170-199 ?TRIGLYCERIDE ?150-199 ? --- ?HDL ?40-59 ?--- ?LDL ? 100-159 ?? 110-129 ??HIGH RISK: ?CHOLESTEROL ? >=240 ?>=200 ?TRIGLYCERIDE ?>=200 ? --- ?HDL ?<40 ?--- ?LDL ? >=160 ?>=130 05/20/2022 10:1 9 AM CDT Katherine HALL LABORATORY Final Result [facility] [address] [place] [address], * (ABNORMAL) COMPREHENSIVE METABOLIC PANEL (05/20/2022 10:19 AM CDT) GLUCOSE 92 70 - 99 MG/DL 05/20/2022 1:44 PM CDT [facility] BUN 18 7 - 18 MG/DL 05/20/2022 1:44 PM CDT [facility] CREATININE S/P/B 0.66 0.55 - 1.02 MG/DL 05/20/2022 1:44 PM CDT [facility] SODIUM S/P/B 145 136 - 145 MMOL/L 05/20/2022 1:44 PM CDT [facility] POTASSIUM S/P/B 4.5 3.5 - 5.1 MMOL/L 05/20/2022 1:44 PM CDT [facility] CHLORIDE S/P/B 106 100 - 108 MMOL/L 05/20/2022 1:44 PM [facility] CO2 28.6 21 - 32 MMOL/L 05/20/2022 1:44 PM [facility] CALCIUM S/P/B 9.6 8.5 - 10.1 MG/DL 05/20/2022 1:44 PM [facility] BILIRUBIN TOTAL S/P/B 0.4 0.2 - 1.2 MG/DL 05/20/2022 1:44 PM [facility] TOTAL PROTEIN S/P/B 8.0 6.4 - 8.2 G/DL 05/20/2022 1:44 PM [facility] ALBUMIN S/P/B 4.6 3.4 - 5.0 G/DL 05/20/2022 1:44 PM [facility] AST 17 15 - 37 U/L 05/20/2022 1:44 PM [facility] ALT 23 14 - 55 U/L 05/20/2022 1:44 PM [facility] ALKALINE PHOSPHATASE S/P/B 89 50 - 136 U/L 05/20/2022 1:44 PM [facility] ANION GAP 10.4 5 - 15 MMOL/L 05/20/2022 1:44 PM [facility] BUN CREATININE RATIO 27.3(H) 6 - 26 05/20/2022 1:44 PM [facility] A/G RATIO 1.4 1.0 - 2.0 RATIO 05/20/2022 1:44 PM [facility] GFR ESTIMATE >90 >90 ML/MIN/1.7 3 M2 05/20/2022 1:44 PM [facility] Comment: NOTE: eGFR is not calculated for patients <18 years of age. This is an estimated GFR calculation using the new CKD EPI creatinine equation without race and so does not require a correction factor for race. This estimated GFR should not be used for calculating drug doses. 05/20/2022 10:1 9 AM CDT us Katherine HALL LABORATORY Final Result Performing Organization Address [facility] Co de Phone Number [facility] [address] [place] [address], [place] [phone] * TSH W/REFLEX (05/20/2022 10:19 AM CDT) TSH 1.686 0.358 - 3.74 uIU/ML 05/20/2022 1:44 PM CDT [facility] Comment: HIGH DOSES OF BIOTIN MAY INTERFERE WITH THIS TEST RESULT. CORRELATION TO CLINICAL HISTORY AND PRESENTATION RECOMMENDED. FREE T4 NOT INDICATED 05/20/2022 10:1 9 AM CDT us Katherine HALL LABORATORY Final Result Performing Organization Address [facility] de Phone Number [facility] [address] [place] [address], [place] [phone] * (ABNORMAL) CBC W/DIFF AUTOMATED (05/20/2022 10:19 AM CDT) WBC 7.0 4.4 - 11.0 x10'3/uL 05/20/2022 1:17 PM CDT [facility] RBC 5.10 4.50 - 5.10 x10'6/uL 05/20/2022 1:17 PM CDT [facility] HGB 14.7 12.3 - 15.3 G/DL 05/20/2022 1:17 PM CDT [facility] HCT 44.9(H) 35.9 - 44.6 % 05/20/2022 1:17 PM CDT [facility] MCV 88.0 80.0 - 96.0 FL 05/20/2022 1:17 PM CDT [facility] MCH 28.8 25.3 - 30.9 PG 05/20/2022 1:17 PM CDT [facility] MCHC 32.7 31.0 - 34.1 G/DL 05/20/2022 1:17 PM CDT [facility] RDW 11.9(L) 12.4 - 15.1 % 05/20/2022 1:17 PM T [facility] PLT 277 151 - 353 x10'3/uL 05/20/2022 1:17 PM T [facility] MPV 10.3 9.6 - 12.0 FL 05/20/2022 1:17 PM T [facility] RBC MORPHOLOGY NORMAL 05/20/2022 1:17 PM T [facility] PLT MORPH. NORMAL 05/20/2022 1:17 PM T [facility] WBC MORPHOLOGY NORMAL 05/20/2022 1:17 PM T [facility] LYMPHOCYTES % 28.9 15.8 - 45.0 % 05/20/2022 1:17 PM CDT [facility] NEUTROPHILS % 61.0 42.1 - 71.9 % 05/20/2022 1:17 PM CDT [facility] MONOCYTES % 7.8 5.7 - 12.5 % 05/20/2022 1:17 PM T [facility] EOSINOPHILS 1.6 0.0 - 5.6 % 05/20/2022 1:17 PM CDT [facility] BASOPHILS 0.6 0.0 - 1.3 % 05/20/2022 1:17 PM CDT [facility] ABS. NEUTROPHILS 4.28 1.40 - 6.00 x10'3/uL 05/20/2022 1:17 PM CDT [facility] IMMATURE GRANS % 0.1 0.0 - 0.5 % 05/20/2022 1:17 PM CDT [facility] ABS. LYMPHOCYTES 2.03 0.80 - 4.70 x10'3/uL 05/20/2022 1:17 PM CDT [facility] 05/20/2022 10:1 9 AM CDT Katherine HALL LABORATORY Final Result [facility] [address] [place] [address], documented in this encounter Visit Diagnoses Diagnosis Amenorrhea- Primary Absence of menstruation Routine general medical examination at a health care facility Colon cancer screening Special screening for malignant neoplasms, colon Cervical cancer screening Screening for malignant neoplasm of the cervix documented in this encounter Additional Health Concerns Assessment Noted Time PHQ-9 Depression Total Score: 0 04/30/20 21 7:52 AM CDT documented as of this encounter Care Teams Cone Cleaner Relationship Specialty [place] [address] [place] [address] PCP - General PHYSICIAN MAIL TECHNICIAN 11/07/19 documented as of this encounter
--- OUTSIDE RECORDS SUMMARY | 2024-09-22 18:20 | XMS_ITS | Referral Summary ---
Author Organization [facility] Address [address] [place] [address] Care Team Providers Care Budget And Policy Analyst Name Role Phone Danial Pereira MD Primary Care Provider Source Comments [facility],non-owned Affiliates and Associated Physician Practices is amultiple site organization consisting of ambulatory clinics and hospital sitesin [place], [place], [place] and [place]. This disclosure is being madepursuant to the Care Everywhere program and may not contain all information available regarding this patient. Last updated 18.[facility] Social History Tobacco Use Types Packs/Day Years Used Date Smoking Tobacco: Never Assessed Sex and Gender Information Value Date Recorded Sex Assigned at Not on file Gender Identity Not on file Sexual Orientation Not on file Plan of Treatment Not on file Care Teams Budget And Policy Analyst Relationship Specialty Start Date End Date Danial Pereira MD [address] [place] [address] PCP - General 03/21/12
--- OUTSIDE RECORDS SUMMARY | 2024-09-22 18:20 | XMS_ITS | Encounter Summary ---
Author Organization [facility] Address [address] [place] [address]. [place], [place] [id number] [place] [address] Care Team Providers Care Ancillary Services Manager Therapy Name Role Phone Katherine Shelton Primary Care Provider [phone] Reason for Visit * Reason Onset Date Comments Results 01/04/2020 Encounter Details Date Type Department Care Team (Late st Contact Info) Description 01/04/2020 Telephone [facility] Family & Internal Medicine [facility] [address] [place] [address] [place] [address] [place] [address] Results Social History Tobacco Use Types Packs/Day Years [...] AM CDT documented as of this encounter Progress Notes * Chani Cortez - 01/04/2020 1:58 PM CDT Pt called I read her your note V/U * Jillian Chisholm RN - 01/04/2020 12:01 PM CDT PAP normal. Attempted to contact pt to make her aware- unable to leave vm documented in this encounter Plan of Treatment Not on file documented as of this encounter Visit Diagnoses Not on filedocumented in this encounter Care Teams Ancillary Services Manager Therapy Relationship Specialty [place] [address] [place] [address] PCP - General PHYSICIAN ASSISTANT INFANT TODDLER TEACHER 11/07/19 documented as of this encounter
--- OUTSIDE RECORDS SUMMARY | 2024-09-22 18:20 | XMS_ITS | Encounter Summary ---
Author Organization [facility] Address [address] [place] [address]. [place], [place] [address] [place] [address] Care Team Providers Care Numerical Control Operator Name Role Phone Katherine Shelton Primary Care Provider + [phone] Encounter Details Date Type Department Care Team (Latest Contact Info) Description 05/20/2022 12:46 PM CDT - 05/20/2022 2:45 PM CDT Hospital Encounter [facility] [address] [place], [place] [id number] [place] [address] [place], [place] [phone] Discharge Disposition: Home or Self Care (Routine [...] Date/Time Associated Diagnosis Comments TSH W/REFLEX Routine 05/20/2022 10:19 AM CDT Routine general medical examination at a [facility] facility COMPREHENSIVE METABOLIC PANEL Routine 05/20/2022 10:19 AM CDT Routine general medical examination at [facility] facility LIPID PANEL Routine 05/20/2022 10:19 AM CDT Routine general medical examination at [facility] facility LH, LUTEINIZING HORMONE Routine 05/20/2022 10:19 AM CDT Amenorrhea FSH, FOLLICLE STIM HORMONE Routine 05/20/2022 10:19 AM CDT Amenorrhea CBC W/DIFF AUTOMATED Routine 05/20/2022 10:19 AM CDT Routine general medical examination at [facility] facility documented in this encounter Results * (ABNORMAL) CBC W/DIFF AUTOMATED (05/20/2022 10:19 AM CDT) WBC 7.0 4.4 - 11.0 x10'3/uL 05/20/2022 1:17 PM CDT [facility] RBC 5.10 4.50 - 5.10 x10'6/uL 05/20/2022 1:17 PM CDT [facility] HGB 14.7 12.3 - 15.3 G/DL 05/20/2022 1:17 PM CDT [facility] HCT 44.9(H) 35.9 - 44.6 % 05/20/2022 1:17 PM CDT [facility] MCV 88.0 80.0 - 96.0 FL 05/20/2022 1:17 PM CDT [facility] MCH 28.8 25.3 - 30.9 PG 05/20/2022 1:17 PM T [facility] MCHC 32.7 31.0 - 34.1 G/DL 05/20/2022 1:17 PM T [facility] RDW 11.9(L) 12.4 - 15.1 % 05/20/2022 1:17 PM T [facility] PLT 277 151 - 353 x10'3/uL 05/20/2022 1:17 PM T [facility] MPV 10.3 9.6 - 12.0 FL 05/20/2022 1:17 PM [facility] RBC MORPHOLOGY NORMAL 05/20/2022 1:17 PM T [facility] PLT MORPH. NORMAL 05/20/2022 1:17 PM T [facility] WBC MORPHOLOGY NORMAL 05/20/2022 1:17 PM T [facility] LYMPHOCYTES % 28.9 15.8 - 45.0 % 05/20/2022 1:17 PM T [facility] NEUTROPHILS % 61.0 42.1 - 71.9 % 05/20/2022 1:17 PM T [facility] MONOCYTES % 7.8 5.7 - 12.5 % 05/20/2022 1:17 PM T [facility] EOSINOPHILS 1.6 0.0 - 5.6 % 05/20/2022 1:17 PM T [facility] BASOPHILS 0.6 0.0 - 1.3 % 05/20/2022 1:17 PM T [facility] ABS. NEUTROPHILS 4.28 1.40 - 6.00 x10'3/uL 05/20/2022 1:17 PM T [facility] IMMATURE GRANS % 0.1 0.0 - 0.5 % 05/20/2022 1:17 PM CDT [facility] ABS. LYMPHOCYTES 2.03 0.80 - 4.70 x10'3/uL 05/20/2022 1:17 PM CDT [facility] 05/20/2022 10:1 9 AM CDT us Katherine HALL LABORATORY Final Result Performing Organization Address [facility] Co de Phone Number [facility] [address] [place] [address], [place] [phone] * TSH W/REFLEX (05/20/2022 10:19 AM CDT) TSH 1.686 0.358 - 3.74 uIU/ML 05/20/2022 1:44 PM CDT [facility] Comment: HIGH DOSES OF BIOTIN MAY INTERFERE WITH THIS TEST RESULT. CORRELATION TO CLINICAL HISTORY AND PRESENTATION RECOMMENDED. FREE T4 NOT INDICATED 05/20/2022 10:1 9 AM CDT us Katherine HALL LABORATORY Final Result Performing Organization Address [facility] Co de Phone Number [facility] [address] [place] [address], [place] [phone] * (ABNORMAL) COMPREHENSIVE METABOLIC PANEL (05/20/2022 10:19 AM CDT) GLUCOSE 92 70 - 99 MG/DL 05/20/2022 1:44 PM CDT [facility] BUN 18 7 - 18 MG/DL 05/20/2022 1:44 PM CDT [facility] CREATININE S/P/B 0.66 0.55 - 1.02 MG/DL 05/20/2022 1:44 PM CDT [facility] SODIUM S/P/B 145 136 - 145 MMOL/L 05/20/2022 1:44 PM [facility] POTASSIUM S/P/B 4.5 3.5 - 5.1 MMOL/L 05/20/2022 1:44 PM [facility] CHLORIDE S/P/B 106 100 - 108 MMOL/L 05/20/2022 1:44 PM [facility] CO2 28.6 21 - 32 MMOL/L 05/20/2022 1:44 PM [facility] CALCIUM S/P/B 9.6 8.5 - 10.1 MG/DL 05/20/2022 1:44 PM [facility] BILIRUBIN TOTAL S/P/B 0.4 0.2 - 1.2 MG/DL 05/20/2022 1:44 PM [facility] TOTAL PROTEIN S/P/B 8.0 6.4 - 8.2 G/DL 05/20/2022 1:44 PM [facility] ALBUMIN S/P/B 4.6 3.4 - 5.0 G/DL 05/20/2022 1:44 PM [facility] AST 17 15 - 37 U/L 05/20/2022 1:44 PM [facility] ALT 23 14 - 55 U/L 05/20/2022 1:44 PM [facility] ALKALINE PHOSPHATASE S/P/B 89 50 - 136 U/L 05/20/2022 1:44 PM [facility] ANION GAP 10.4 5 - 15 MMOL/L 05/20/2022 1:44 PM [facility] BUN CREATININE RATIO 27.3(H) 6 - 26 05/20/2022 1:44 PM [facility] A/G RATIO 1.4 1.0 - 2.0 RATIO 05/20/2022 1:44 PM CDT [facility] GFR ESTIMATE >90 >90 ML/MIN/1.7 3 M2 05/20/2022 1:44 PM CDT [facility] Comment: NOTE: eGFR is not calculated for patients <18 years of age. This is an estimated GFR calculation using the new CKD EPI creatinine equation without race and so does not require a correction factor for race. This estimated GFR should not be used for calculating drug doses. 05/20/2022 10:1 9 AM CDT Katherine HALL LABORATORY Final Result [facility] [address] [place] [address], * (ABNORMAL) LIPID PANEL (05/20/2022 10:19 AM CDT) CHOLESTEROL 256(H) <200.0 MG/DL 05/20/2022 1:44 PM CDT [facility] TRIGLYCERIDES 91 <150 MG/DL 05/20/2022 1:44 PM CDT [facility] HDL 80 >40.0 MG/DL 05/20/2022 1:44 PM CDT [facility] LDL (CALCULATED) 158(H) <100 MG/DL 05/20/2022 1:44 PM CDT [facility] NON HDL CHOLESTEROL 176(H) <130 MG/DL 05/20/2022 1:44 PM CDT [facility] CHOL/HDL RATIO 3.2 0.0 - 4.5 05/20/2022 1:44 PM CDT [facility] VLDL CALCULATION 18 5 - 55 MG/DL 05/20/2022 1:44 PM T [facility] LIPID INTERPRETATION 05/20/2022 1:44 PM CDT [facility] Comment: NIH CONCENSUS REPORT RECOMMENDATIONS: [...] >=160 ?>=130 05/20/2022 10:1 9 AM CDT us Katherine HALL LABORATORY Final Result Performing Organization Address [facility] de Phone Number [facility] [address] [place] [address], * FSH, FOLLICLE STIM HORMONE (05/20/2022 10:19 AM CDT) FSH 61.7 MIU/ML 05/20/2022 7:[address] [facility] Comment: REFERENCE RANGES FOR FEMALES: ??FOLLICULAR ? 3.5-12.5 ??MID-CYCLE ?4.7-21.5 ??LUTEAL ? 1.7-7.7 ??POSTMENOPAUSAL ?25.8-134.8 05/20/2022 10:1 9 AM CDT us Katherine HALL LABORATORY Final Result Performing Organization Address [facility] de Phone Number [facility] [address] [place] [address], * LH, LUTEINIZING HORMONE (05/20/2022 10:19 AM CDT) Luteinizing Hormone 27.2 MIU/ML 05/20/2022 7:[address] [facility] Comment: REFERENCE RANGES FOR FEMALES: ??FOLLICULAR ? 2.4-12.6 ??MID-CYCLE ? 14.0-95.6 ??LUTEAL ? 1.0-11.4 ??POSTMENOPAUSAL ? 7.7-58.5 05/20/2022 10:1 9 AM CDT us Katherine HALL LABORATORY Final Result Performing Organization Address [facility] de Phone Number [facility] [address] [place] [address], documented in this encounter Visit Diagnoses Diagnosis Amenorrhea Absence of menstruation Routine general medical examination at a health care facility documented in this encounter Additional Health Concerns Assessment Noted Time PHQ-9 Depression Total Score: 0 04/30/20 21 7:52 AM CDT documented as of this encounter Care Teams Numerical Control Operator Relationship Specialty [place] [address] [place] [address] PCP - General PHYSICIAN INSTITUTIONAL COOK 11/07/19 documented as of this encounter
--- OUTSIDE RECORDS SUMMARY | 2024-09-22 18:20 | XMS_ITS | Continuity of Care Document ---
Author Organization [facility] [place] [id number] Care Team Providers Care Senior Cost Estimator Name Role Phone Katherine Shelton Primary Care Physician Encounter [facility] Financial Number [id number] Date(s): 07/13/24 - 07/13/[address] [id number] Discharge Disposition: Home or Self Care Attending Physician: Katherine Shelton Admitting Physician: Katherine Shelton Referring Physician: Katherine Shelton Problem List Diagnosis Diagnosis Type Effective Dates Health Status Cl inical Service Informant Encounter for screening mammogram for malignant neoplasm of breast 07/13/24 Non-Specified Note * [facility] Rf Technician: PERFORM Event Display: ROI_Correspondence Authored Date: [id number] * [facility] Rf Technician: PERFORM Event Display: ROI_Correspondence Authored Date: [id number] * [facility] Rf Technician: PERFORM Event Display: ROI_Correspondence Authored Date: [id number] Patient Care team information Care Team Personnel Name: Katherine Shelton Member Role: Primary Care Physician Address: Address: [address] [place] [address] [place] Care Team Related Persons Name: IKE ALVARES Address: home [address] [place], [id number]
--- OUTSIDE RECORDS SUMMARY | 2024-09-22 18:20 | XMS_ITS | Encounter Summary ---
Author Organization [facility] Address [address] [place] [address]. [place], [place] [address] [place] [address] Care Team Providers Care Planning Feeder Name Role Phone Katherine Shelton Primary Care Provider + [phone] Reason for Visit * Reason Comments Mammogram (SCAN) Encounter Details Date Type Department Care Team ([facility] Contact Info) Description 07/20/2023 Scan [facility] INFO SRVCS Scanned, Doc Med Group Mammogram (SCAN) Social History Tobacco Use Types Packs/Day Years [...] Diagnosis Comments MAMMOGRAM GENERIC (SCAN ORDER) 07/20/2023 documented in this encounter Results * MAMMOGRAM GENERIC (07/20/2023) Anatomical Region Laterality Modality Other 07/20/2023 us Doc Med Group Scanned SCANNING Final Resu lt documented in this encounter Visit Diagnoses Not on filedocumented in this encounter Additional Health Concerns Assessment Noted Time PHQ-9 Depression Total Score: 0 04/30/20 21 7:52 AM CDT documented as of this encounter Care Teams Planning Feeder Relationship Specialty [place] [address] [place] [address] PCP - General PHYSICIAN FLAG SIGNALER 11/07/19 documented as of this encounter
--- OUTSIDE RECORDS SUMMARY | 2024-09-22 18:20 | XMS_ITS | Encounter Summary ---
Author Organization [facility] Address [address] [place] [address]. [place], [place] [address] [place] [address] Care Team Providers Care Field Cashier Name Role Phone Katherine Shelton Primary Care Provider + [phone] Reason for Visit * Reason Comments Pathology (SCAN) CERVICAL PAP SMEAR Encounter Details Date Type Department Care Team ([facility] Contact Info) Description 12/26/2019 Scan HEALTH INFO SRVCS Scanned, Documents Pathology (SCAN) (CERVICAL PAP SMEAR) Social History Tobacco Use Types Packs/Day Years [...] Procedure Name Priority Date/Time Associated Diagnosis Comments OUTSIDE CYTOPATH CERV/VAG IN TERPRET (PAP) (SCAN ORDER) Routine 12/26/2019 documented in this encounter Results * PAP SMEAR (12/26/2019) 12/26/2019 us Documents Scanned SCANNING Edited Result - Final [facility] documented in this encounter Visit Diagnoses Not on filedocumented in this encounter Care Teams Field Cashier Relationship Specialty [place] [address] [place] [address] PCP - General PHYSICIAN LEGAL ACTIVITY ADJUDICATOR 11/07/19 documented as of this encounter
--- OUTSIDE RECORDS SUMMARY | 2024-09-22 18:20 | XMS_ITS | Encounter Summary ---
Author Organization [facility] Address [address] [place] [address]. [place], [place] [address] [place] [address] Care Team Providers Care Hospice Office Coordinator Name Role Phone Katherine Shelton Primary Care Provider [phone] Encounter Details Date Type Department Care Team (Late st Contact Info) Description 06/28/2023 2:40 PM CDT Laboratory Only [facility] Family & Internal Medicine [facility] [id number] [place] [phone] Katherine Shelton [place] [phone] [place] [address] Social History Tobacco Use Types Packs/Day Years [...] Diagnosis Comments COLLECTION VENOUS BLOOD VENIPUNCTURE Routine 06/28/2023 2:36 PM CDT Routine general medical examination at a health care facility Encounter for contraceptive management, unspecified type documented in this encounter Visit Diagnoses Diagnosis Encounter for contraceptive management, unspecified type documented in this encounter Additional Health Concerns Assessment Noted Time PHQ-9 Depression Total Score: 0 04/30/20 21 7:52 AM CDT documented as of this encounter Care Teams Hospice Office Coordinator Relationship Specialty [place] [address] [place] [address] PCP - General PHYSICIAN TELEPHONE TECHNICIAN 11/07/19 documented as of this encounter
--- OUTSIDE RECORDS SUMMARY | 2024-09-22 18:20 | XMS_ITS | Encounter Summary ---
Author Organization [facility] Address [address] [place] [address]. [place], [place] [address] [place] [address] Care Team Providers Care Radiology Transporter Name Role Phone Richard Shelton Primary Care Provider [phone] Encounter Details Date Type Department Care Team (Latest Contact Info) Description 04/30/2021 7:56 PM CDT - 04/30/2021 11:59 PM CDT Hospital Encounter [facility] [address] [facility] [place] [address] [place] [address] [place] [address] Discharge Disposition: Home or Self [...] mL 1 11/07/2019 05/20/2022 vitamin D2, ergocalciferol, 53424 UNITS capsule Take 50,000 Units by mouth every 7 days. 11/16/2018 05/20/2022 documented as of this encounter Plan of Treatment Not on file documented as of this encounter Procedures Procedure Name Priority Date/Time Associated Diagnosis Comments HUMAN PAPILLOMAVIRUS, HIGH-RISK TYPES Routine 04/30/2021 12:00 PM CDT CYTOPATH CERV/VAG THIN LAYER Routine 04/30/2021 8:38 AM CDT documented in this encounter Results * HUMAN PAPILLOMAVIRUS, HIGH-RISK TYPES (04/30/2021 12:00 PM CDT) SPEC DESCRIPTION CERVICAL/END OCERVICAL 05/04/2021 8:59 AM CDT [facility] HPV DNA HIGH RISK NEGATIVE NEGATIVE 05/06/2021 12:15 PM CDT [facility] Comment:SEE CYTOLOGY REPORT 04/30/2021 12:0 0 PM CDT Richard HALL PATHOLOGY/CYTOLOGY ORDERABLE S Final Result [facility] [address] [place] [address], * Cytopath Cerv/Vag Thin Layer (04/30/2021 8:38 AM CDT) THIN PREP PAP ? [facility] ?[address] ?[place] [address] ? Department of Pathology ? Pathology Report ? CERVICAL/VAGINAL PAP SMEAR REPORT Name: TOPHER PEPE Dm ? Age: 12 1970 (Age: 50) ?Location: [facility] Sex: F ?Collected Date: 04/30/2021 Hospital #: [id number] ?Date Received: 05/04/2021 Date Reported: 05/07/2021 Provider: RICHARD HALL INTERPRETATION CERVICAL/ENDOCERVI NAZIA: ? SATISFACTORY FOR EVALUATION. ? NEGATIVE FOR INTRAEPITHELIAL LESION OR MALIGNANCY. ATROPHY. NEGATIVE FOR HIGH RISK HPV. The FDA [...] By SANJANA Harper (ASCP) CLINICAL HISTORY Z12.4 CERVICAL CANCER SCREEN ThinPrep Pap Test with HR HPV testing in patient > 30 years requested. Date of Last Menstrual Period: ? OVER A YR Menstrual Status: Irregular SPECIMEN SUBMITTED CERVICAL/ENDOCERVI NAZIA ?Specimen Received:1 Thin Prep Vial, Image Assisted Pap (SMD) ? Please note: The Pap smear is not a diagnostic test. ??It is a screening test. ??Negative results on combined screening (Pap test and HPV-DNA) have a high negative predictive value (99.1-100 percent) for cervical cancer. ??The pap test is not effective in detecting cervical adenocarcinoma. [facility] 04/30/2021 8:38 AM CDT 05/04/2021 8:38 AM CDT Comment:CERVICAL/ENDOCERVICA L Richard HALL PATHOLOGY/CYTOLOGY ORDERABLE S Final Result [facility] [address] [place] [address], documented in this encounter Visit Diagnoses Not on filedocumented in this encounter Additional Health Concerns Assessment Noted Time PHQ-9 Depression Total Score: 0 04/30/20 21 7:52 AM CDT documented as of this encounter Care Teams Radiology Transporter Relationship Specialty Start Date End Date Richard Shelton, [place] [address] [place] [address] PCP - General PHYSICIAN INDUSTRIAL MAINTENANCE REPAIRER HELPER 11/07/19 documented as of this encounter
--- OUTSIDE RECORDS SUMMARY | 2024-09-22 18:20 | XMS_ITS | Encounter Summary ---
Author Organization [facility] Address [address] [place] [address]. [place], [place] [address] [place] [address] Care Team Providers Care Aesthetician Name Role Phone Katherine Shelton Primary Care Provider + [phone] Reason for Visit * Reason Comments Mammogram (SCAN) Encounter Details Date Type Department Care Team ([facility] Contact Info) Description 07/16/2022 Scan [facility] HEALTH INFO SRVCS Scanned, Doc [...] Associated Diagnosis Comments MAMMOGRAM GENERIC (SCAN ORDER) 07/16/2022 documented in this encounter Results * MAMMOGRAM GENERIC (07/16/2022) Anatomical Region Laterality Modality Other 07/16/2022 us Doc Med Group Scanned SCANNING Final Resu lt documented in this encounter Visit Diagnoses Not on filedocumented in this encounter Additional Health Concerns Assessment Noted Time PHQ-9 Depression Total Score: 0 04/30/20 21 7:52 AM CDT documented as of this encounter Care Teams Aesthetician Relationship Specialty [place] [address] [place] [address] PCP - General PHYSICIAN GUEST SERVICE MANAGER 11/07/19 documented as of this encounter
--- OUTSIDE RECORDS SUMMARY | 2024-09-22 18:20 | XMS_ITS | Encounter Summary ---
Author Organization [facility] Address [address] [place] [address]. [place], [place] [address] [place] [address] Care Team Providers Care Finish Carpenter Name Role Phone Richard Shelton Primary Care Provider [phone] Encounter Details Date Type Department Care Team (Latest Contact Info) Description 06/28/2023 4:44 PM CDT - 06/28/2023 11:59 PM CDT Hospital Encounter [facility] [address] [place] [address] [place] [address] [place], [place] [id number] Discharge Disposition: Home or Self Care (Routine [...] on file documented as of this encounter Medications at Time of Discharge fexofenadine 180 MG tablet Take 180 mg by mouth daily. documented as of this encounter Plan of Treatment Not on file documented as of this encounter Procedures Procedure Name Priority Date/Time Associated Diagnosis Comments TSH W/REFLEX Routine 06/28/2023 2:35 PM CDT Routine general medical examination at a health care facility COMPREHENSIVE METABOLIC PANEL Routine 06/28/2023 2:35 PM CDT Routine general medical examination at a health care facility LIPID PANEL Routine 06/28/2023 2:35 PM CDT Routine general medical examination at a [facility] care facility FSH, FOLLICLE STIM HORMONE Routine 06/28/2023 2:35 PM CDT Encounter for contraceptive management, unspecified type CBC W/DIFF AUTOMATED Routine 06/28/2023 2:35 PM CDT Routine general medical examination at a [facility] care facility CYTOPATH CERV/VAG THIN LAYER Routine 06/28/2023 10:11 AM CDT Cervical cancer screening HUMAN PAPILLOMAVIRUS, HIGH-RISK TYPES Routine 06/28/2023 8:00 AM CDT documented in this encounter Results * CBC W/DIFF AUTOMATED (06/28/2023 2:35 PM CDT) WBC 6.89 4.4 - 11.0 x10'3/uL 06/28/2023 5:03 PM CDT [facility] RBC 5.06 4.50 - 5.10 x10'6/uL 06/28/2023 5:03 PM CDT [facility] HGB 14.6 12.3 - 15.3 G/DL 06/28/2023 5:03 PM CDT [facility] HCT 44.2 35.9 - 44.6 % 06/28/2023 5:03 PM CDT [facility] MCV 87.4 80.0 - 96.0 FL 06/28/2023 5:03 PM CDT [facility] MCH 28.9 25.3 - 30.9 PG 06/28/2023 5:03 PM CDT [facility] MCHC 33.0 31.0 - 34.1 G/DL 06/28/2023 5:03 PM CDT [facility] RDW 12.4 12.4 - 15.1 % 06/28/2023 5:03 PM CDT [facility] PLT 279 151 - 353 x10'3/uL 06/28/2023 5:03 PM CDT [facility] MPV 10.1 9.6 - 12.0 FL 06/28/2023 5:03 PM CDT [facility] RBC MORPHOLOGY NORMAL 06/28/2023 5:03 PM CDT [facility] PLT MORPH. NORMAL 06/28/2023 5:03 PM CDT [facility] WBC MORPHOLOGY NORMAL 06/28/2023 5:03 PM CDT [facility] LYMPHOCYTES % 38.0 15.8 - 45.0 % 06/28/2023 5:03 PM CDT [facility] NEUTROPHILS % 51.5 42.1 - 71.9 % 06/28/2023 5:03 PM CDT [facility] MONOCYTES % 8.1 5.7 - 12.5 % 06/28/2023 5:03 PM CDT [facility] EOSINOPHILS 1.7 0.0 - 5.6 % 06/28/2023 5:03 PM CDT [facility] BASOPHILS 0.4 0.0 - 1.3 % 06/28/2023 5:03 PM CDT [facility] ABS. NEUTROPHILS 3.54 1.40 - 6.00 x10'3/uL 06/28/2023 5:03 PM CDT [facility] IMMATURE GRANS % 0.3 0.0 - 0.5 % 06/28/2023 5:03 PM CDT [facility] ABS. LYMPHOCYTES 2.62 0.80 - 4.70 x10'3/uL 06/28/2023 5:03 PM CDT [facility] 06/28/2023 2:35 PM CDT [facility] Final Result [facility] [address] [place] [address], * COMPREHENSIVE METABOLIC PANEL (06/28/2023 2:35 PM CDT) GLUCOSE 86 70 - 99 MG/DL 06/28/2023 5:21 PM CDT [facility] BUN 8 7 - 18 MG/DL 06/28/2023 5:21 PM CDT [facility] CREATININE S/P/B 0.68 0.55 - 1.02 MG/DL 06/28/2023 5:21 PM CDT [facility] SODIUM S/P/B 138 136 - 145 MMOL/L 06/28/2023 5:21 PM CDT [facility] POTASSIUM S/P/B 4.1 3.5 - 5.1 MMOL/L 06/28/2023 5:21 PM CDT [facility] CHLORIDE S/P/B 103 100 - 108 MMOL/L 06/28/2023 5:21 PM CDT [facility] CO2 28.1 21 - 32 MMOL/L 06/28/2023 5:21 PM CDT [facility] CALCIUM S/P/B 9.5 8.5 - 10.1 MG/DL 06/28/2023 5:21 PM CDT [facility] BILIRUBIN TOTAL S/P/B 0.4 0.2 - 1.2 MG/DL 06/28/2023 5:21 PM CDT [facility] TOTAL PROTEIN S/P/B 7.8 6.4 - 8.2 G/DL 06/28/2023 5:21 PM T [facility] ALBUMIN S/P/B 4.4 3.4 - 5.0 G/DL 06/28/2023 5:21 PM CDT [facility] AST 17 15 - 37 U/L 06/28/2023 5:21 PM T [facility] ALT 21 14 - 55 U/L 06/28/2023 5:21 PM T [facility] ALKALINE PHOSPHATASE S/P/B 98 50 - 136 U/L 06/28/2023 5:21 PM T [facility] ANION GAP 6.9 5 - 15 MMOL/L 06/28/2023 5:21 PM T [facility] BUN CREATININE RATIO 11.8 6 - 26 06/28/2023 5:21 PM [facility] A/G RATIO 1.3 1.0 - 2.0 RATIO 06/28/2023 5:21 PM [facility] GFR ESTIMATE >90 >90 ML/MIN/1.7 3 M2 06/28/2023 5:21 PM T [facility] Comment: NOTE: eGFR is not calculated for patients <18 years of age. This is an estimated GFR calculation using the new CKD EPI creatinine equation without race and so does not require a correction factor for race. This estimated GFR should not be used for calculating drug doses. 06/28/2023 2:35 PM CDT Richard [facility] Final Result [facility] [address] [place] [id number], [place] [phone] * TSH W/REFLEX (06/28/2023 2:35 PM CDT) TSH 2.114 0.358 - 3.74 uIU/ML 06/28/2023 5:21 PM CDT [facility] Comment: HIGH DOSES OF BIOTIN MAY INTERFERE WITH THIS TEST RESULT. CORRELATION TO CLINICAL HISTORY AND PRESENTATION RECOMMENDED. FREE T4 NOT INDICATED 06/28/2023 2:35 PM CDT Richard [facility] Final Result [facility] [address] [place] [address], * (ABNORMAL) LIPID PANEL (06/28/2023 2:35 PM CDT) CHOLESTEROL 255(H) <200.0 MG/DL 06/28/2023 5:21 PM CDT [facility] TRIGLYCERIDES 75 <150 MG/DL 06/28/2023 5:21 PM CDT [facility] HDL 82 >40.0 MG/DL 06/28/2023 5:21 PM T [facility] LDL (CALCULATED) 158(H) <100 MG/DL 06/28/2023 5:21 PM T [facility] NON HDL CHOLESTEROL 173(H) <130 MG/DL 06/28/2023 5:21 PM CDT [facility] CHOL/HDL RATIO 3.1 0.0 - 4.5 06/28/2023 5:21 PM CDT [facility] VLDL CALCULATION 15 5 - 55 MG/DL 06/28/2023 5:21 PM CDT [facility] LIPID INTERPRETATION 06/28/2023 5:21 PM CDT [facility] Comment: NIH CONCENSUS REPORT [...] LABORATORY Final Result Performing Organization Address [facility]/State/ZIP Co de Phone Number [facility] () [facility] [address] [place] [address], * FSH, FOLLICLE STIM HORMONE (06/28/2023 2:35 PM CDT) FSH 59.8 MIU/ML 06/28/2023 8:00 PM CDT [facility] Comment: REFERENCE RANGES FOR FEMALES: ??FOLLICULAR ? 3.5-12.5 ??MID-CYCLE ?4.7-21.5 ??LUTEAL ? 1.7-7.7 ??POSTMENOPAUSAL ?25.8-134.8 06/28/2023 2:35 PM CDT us Richard [facility]ALL LABORAT[facility] Final Result [facility] [address] [place] [address], * Cytopath Cerv/Vag Thin Layer (06/28/2023 10:11 AM CDT) THIN PREP PAP ? [facility] ?[address] ?[place] [address] ? Department of Pathology ? Pathology Report ? CERVICAL/VAGINAL PAP SMEAR REPORT Name: TOPHER PEPE ? Age: 12 1970 (Age: 52) ?Location: [facility] Sex: F ?Collected Date: 06/28/2023 Hospital #: [id number] ?Date Received: 06/30/2023 Date Reported: 07/04/2023 Provider: [...] is not effective in detecting cervical adenocarcinoma. [facility] 06/28/2023 10:1 1 AM CDT 06/30/2023 10:11 AM CDT Comment:CERVICAL/ENDOCERVICA L us Richard HALL PATHOLOGY/CYTOLOGY ORDERABLE S Final Result Performing Organization Address [facility] Co de Phone Number [facility] [address] [place] [address], * HUMAN PAPILLOMAVIRUS, HIGH-RISK TYPES (06/28/2023 8:00 AM CDT) SPECIMEN SOURCE CERVIX 06/30/2023 11:05 AM CDT [facility] HPV DNA HIGH RISK NEGATIVE NEGATIVE 07/01/2023 4:47 PM CDT [facility] Comment:SEE CYTOLOGY REPORT 06/28/2023 8:00 AM CDT us Richard HALL PATHOLOGY/CYTOLOGY ORDERABLE S Final Result Performing Organization Address [facility] Co de Phone Number [facility] [address] [place] [address], documented in this encounter Visit Diagnoses Diagnosis Encounter for contraceptive management, unspecified type Cervical cancer screening Screening for malignant neoplasm of the cervix documented in this encounter Additional Health Concerns Assessment Noted Time PHQ-9 Depression Total Score: 0 04/30/20 21 7:52 AM CDT documented as of this encounter Care Teams Finish Carpenter Relationship Specialty [place] [address] [place] [address] PCP - General PHYSICIAN REPAIRER AUTO CLOCKS 11/07/19 documented as of this encounter
--- OUTSIDE RECORDS SUMMARY | 2024-09-22 18:20 | XMS_ITS | Encounter Summary ---
Author Organization [facility] Address [address] [facility] [place] [address] Care Team Providers Care Pigment Weigher Name Role Phone Danial Pereira MD Primary Care Provider Encounter Details Date Type Department Care Team (Late st Contact Info) Description 09/05/2020 Lab Requisition [facility] [address] [facility] [place] [place] [address] Leyda Mayo MD [address] [facility] [address] [place] [address] Social History Tobacco Use Types Packs/Day Years Used Date Smoking Tobacco: Never Assessed Sex and Gender Information Value Date Recorded Sex Assigned at Not on file Gender Identity Not on file Sexual Orientation Not on file documented as of this encounter Plan of Treatment Not on file documented as of this encounter Procedures Procedure Name Priority Date/Time Associated Diagnosis Comments DERMATOPATHOLOGY Routine 09/04/2020 3:33 AM CITY CONTROLLER documented in this encounter Results * DERMATOPATHOLOGY (09/04/2020 3:33 AM CITY CONTROLLER) Case Report Dermatopathology Report ? Case: [id number] ? Authorizing Provider: ??Leyda Mayo MD ? Collected: ? 09/04/2020 03:33 AM ? Ordering Location: ? [facility] ?Received: ?09/05/2020 07:47 AM ? Pathologist: ? Corinna Tracy MD ? Specimens: ?? A) - Skin, upper back ? B) - Skin, sternal notch ? 0 2:09 PM [facility] Final Diagnosis Specimen A. SKIN, upper back: SQUAMOUS CELL CARCINOMA, WELL DIFFERENTIATED (C44.529) Specimen B. 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 0 2:09 PM [facility] Gross Description Specimen A: Received is one formalin filled container labeled with the patient's name and designated upper back. The specimen consists of a shave measuring [id number], bisected. Jar 0. Specimen B: Received is one formalin filled container labeled with the patient's name and designated sternal notch. The specimen consists of a shave measuring [id number]. Jar 0. 0 2:09 PM [facility] Microscopic Description Specimen A. SKIN, upper back: Arising in the epidermis and extending into the dermis there are irregularly shaped aggregates of keratinocytes showing evidence of premature cornification. Specimen B. SKIN, sternal notch: The epidermis shows parakeratosis, full thickness disorderly maturation of keratinocytes, mitoses at different levels, and dyskeratotic cells. There is a column of marked compact hyperkeratosis. 0 2:09 PM CITY CONTROLLER DERMATOPATHOLOGY LABORATORY Disclaimer An external and internal positive and negative controls are appropriate for the histochemical, immunohistochemical and immunofluorescence stain(s) in this case (if any), except where stated explicitly. The performance characteristics of the stain(s) cited in this report were developed and its performance characteristic determined by the Dermatopathology Laboratory at [facility], directed by Dr. Chava Parham. These tests need not be, and therefore are not, approved by the [place] Food and Drug Administration. The tests are used for clinical purposes. Billing Codes Specimen Charges Stain Charges 78888 [id number] 1 1 0 2:09 PM CITY CONTROLLER DERMATOPATHOLOGY LABORATORY Embedded Images 0 2:09 PM CITY CONTROLLER DERMATOPATHOLOGY LABORATORY Pathology/Cytology TISSUE SPECIMEN FROM SKIN / Unknown 09/04/2020 3:33 AM CITY CONTROLLER 09/05/2020 7:47 AM CITY CONTROLLER Miscellaneous samples (specimen) TISSUE SPECIMEN FROM SKIN / Unknown 09/04/2020 3:33 AM CITY CONTROLLER 09/05/2020 7:47 AM CITY CONTROLLER Leyda Mayo MD LAB - PATHOLOGY/CYT OLOGY ORDERABLES DERMATOPATHOLOGY LABORATORY [facility] - Department of Dermatology [facility] Specialized Medicine [address] [place] [address], [address] [phone] documented in this encounter Visit Diagnoses Not on filedocumented in this encounter Care Teams Pigment Weigher Relationship Specialty Start Date End Date Danial Pereira MD [address] [place] [address] PCP - General 03/21/12 documented as of this encounter
--- OUTSIDE RECORDS SUMMARY | 2024-09-22 18:20 | XMS_ITS | Encounter Summary ---
Author Organization [facility] Address [address] [place] [address]. [place], [place] [address] [place] [address] Care Team Providers Care Single End Sewer Name Role Phone Wilberto Shelton Primary Care Provider [phone] Reason for Visit * Reason Onset Date Comments Breast Problem 07/15/2023 Encounter Details Date Type Department Care Team (Late st Contact Info) Description 07/15/2023 Telephone [facility] Family & Internal Medicine [facility] [address] [place] [address] [place] [address] [place] [address] Breast Problem Social History Tobacco Use Types Packs/Day Years [...] as of this encounter Progress Notes * Zaira Cote - 07/27/2023 4:13 PM CST Pt called and results given. No questions. WEB DEVELOPMENT CONSULTANT * Winifred Parmar RN - 07/27/2023 3:17 PM CST LMOM to call office for results- diagnostic mammo & US done at [facility] on 07/20/23- Wilberto good the cystic structure seen was considered normal, repeat mammogram annually. WEB DEVELOPMENT CONSULTANT * Winifred Parmar RN - 07/27/2023 3:02 PM CST Results received from [facility] mammo & US done on 07/20/23. Sent request back to VSW team to get screening mammogram result done on 07/13/[address] [facility]. WEB DEVELOPMENT CONSULTANT * Winifred Pramar RN - 07/26/2023 8:[address] [facility] (f)[phone] for recent mammogram results. WEB DEVELOPMENT CONSULTANT * Winifred Parmar RN - 07/18/2023 3:14 PM CDT No imaging results received yet. * Winifred Parmar RN - 07/15/2023 2:56 PM CDT I sent VSW team a message earlier to get imaging that pt had done at [facility]. * Alicia Chow LPN - 07/15/2023 1:14 PM CDT Pt would like wilberto to look at the mammogram she had on 07/16/23 and call pt back With a more in depth reason she has to have more testing I explained we have ask for report from where she got imaging done And will call her back when Wilberto has viewed results V/U No further questions [phone] documented in this encounter Plan of Treatment Not on file documented as of this encounter Visit Diagnoses Not on filedocumented in this encounter Additional Health Concerns Assessment Noted Time PHQ-9 Depression Total Score: 0 04/30/20 21 7:52 AM CDT documented as of this encounter Care Teams Single End Sewer Relationship Specialty Start [place] [address] [place] [address] PCP - General PHYSICIAN GROCERY BAGGER 11/07/19 documented as of this encounter
--- OUTSIDE RECORDS SUMMARY | 2024-09-22 18:20 | XMS_ITS | Encounter Summary ---
Author Organization [facility] Address [address] [place] [address]. 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6 ??F) 04/30/2021 7:50 AM CD T Respiratory Rate 20 04/30/2021 7:50 AM CDT Oxygen Saturation 97% 04/30/2021 7:50 AM CDT Inhaled Oxygen Concentration - - Weight 74.5 kg (164 lb 3.2 oz) 04/30/2021 7:50 A M CDT Height 172.7 cm (5' 8 ) 04/30/2021 7:50 AM CDT Body Mass Index 24.97 04/30/2021 7:50 AM CDT documented in this encounter Progress Notes * RAFAEL Garcia - 04/30/2021 8:00 AM CDT Images from the original note were not included. 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 She has no new complaints today. She does have an IUD and she is not having periods and she is wondering if she is inmenopause. We talked about ordering an FSH LH. And she would like to have these done at [facility] due to the cost. Menopausal not sure LMP: No LMP recorded. (Menstrual status: IUD). Last Pap smear over a year desires Pap today. ROS: Review of Systems Feeling well. Denies [...] Outpatient Medications Marked as Taking for the 04/30/21 encounter (Office Visit) with RAFAEL Garcia Medication Sig Dispense Refill ??? fexofenadine 180 MG tablet Take 180 mg by mouth daily. Allergies Allergen Reactions ??? Sulfa Antibiotics Itching [...] please move on to questions 3-9: 0 PHQ 9 - Over the last 2 weeks, how often have you been bothered by any of the following problems? Total Score: 0 Physical Exam Constitutional: She is oriented [...] vaginal discharge found. Cervix pink no lesions, strings are intact vagina pink Digital Rectal exam shows guaiac [...] content normal. No flowsheet data found. Vitals: 04/30/21 0750 Patient Position: Sitting BP Location: Left arm Cuff size: Adult Regular BP: 128/78 Pulse: 88 Body mass index is 24.97 kg/m??. Diagnoses/Impression: 1. Routine general medical examination at a health care facility CBC W/DIFF AUTOMATED VITAMIN D, 25 OH TSH W/REFLEX COMPREHENSIVE METABOLIC PANEL LIPID PANEL VENIPUNC ARM DRAW 2. Well woman exam 3. Cervical cancer screening CYTOPATH CERV/VAG THIN LAYER [31040] 4. Menopause FSH, FOLLICLE STIM HORMONE LH, LUTEINIZING HORMONE Orders Placed This Encounter ??? VENIPUNC ARM DRAW ??? CBC W/DIFF AUTOMATED ??? VITAMIN D, 25 OH ??? TSH W/REFLEX ??? COMPREHENSIVE METABOLIC PANEL ??? LIPID PANEL ??? FSH, FOLLICLE STIM HORMONE ??? LH, LUTEINIZING HORMONE ??? CYTOPATH CERV/VAG THIN LAYER [37643] ??? fexofenadine 180 MG tablet Recommendations and Plan: Patient will continue to obtain her mammograms through her work. They come in June every year. We'll place an order for FSH LH for patient to have done at [facility] prior to next year's appointment parase can confirm whether or not she is a mammogram or remove her IUD at her appointment time. Take Calcium with Vitamin D 1200mg daily [...] Cosigned by Wilfrido De Oliveira MD at 04/30/2021 9:38 AM CDT documented in this encounter Plan of Treatment Scheduled Orders Name Type Priority Associated Diagnoses Orde r Schedule FSH, FOLLICLE STIM HORMONE Lab Routine Menopause Expected: 04/30/2022 (Approximate), Expires: 10/31/2022 LH, LUTEINIZING HORMONE Lab Routine Menopause Expected: 10/31/2021 (Approximate), Expires: 10/31/2022 documented as of this encounter Procedures Procedure Name Priority Date/Time Associated Diagnosis Comments COLLECTION VENOUS BLOOD VENIPUNCTURE Routine 04/30/2021 8:52 AM CDT Routine general medical examination at a health care facility documented in this encounter Results * (ABNORMAL) LIPID PANEL (04/30/2021 8:38 AM CDT) CHOLESTEROL 235(H) <200.0 MG/DL 04/30/2021 2:19 PM CDT [facility] TRIGLYCERIDES 71 <150 MG/DL 04/30/2021 2:19 PM CDT [facility] HDL 81 >40.0 MG/DL 04/30/2021 2:19 PM T [facility] () [facility] LDL (CALCULATED) 140(H) <100 MG/DL 04/30/2021 2:19 PM CDT [facility] NON HDL CHOLESTEROL 154(H) <130 MG/DL 04/30/2021 2:19 PM T [facility]) [facility] CHOL/HDL RATIO 2.9 0.0 - 4.5 04/30/2021 2:19 PM CDT [facility]) [facility] VLDL CALCULATION 14 5 - 55 MG/DL 04/30/2021 2:19 PM T [facility] LIPID INTERPRETATION 04/30/2021 2:19 PM T [facility]) [facility] Comment: NIH CONCENSUS REPORT RECOMMENDATIONS: ?ADULT [...] ? >=160 ?>=130 04/30/2021 8:38 AM CDT us Katherine [facility] Final Result [facility] [address] [place] [address], * (ABNORMAL) COMPREHENSIVE METABOLIC PANEL (04/30/2021 8:38 AM CDT) GLUCOSE 89 70 - 99 MG/DL 04/30/2021 2:19 PM CDT [facility] BUN 16 7 - 18 MG/DL 04/30/2021 2:19 PM CDT [facility] CREATININE S/P/B 0.71 0.55 - 1.02 MG/DL 04/30/2021 2:19 PM CDT [facility] SODIUM S/P/B 144 136 - 145 MMOL/L 04/30/2021 2:19 PM CDT [facility] POTASSIUM S/P/B 4.3 3.5 - 5.1 MMOL/L 04/30/2021 2:19 PM CDT [facility] CHLORIDE S/P/B 105 100 - 108 MMOL/L 04/30/2021 2:19 PM CDT [facility] CO2 31.0 21 - 32 MMOL/L 04/30/2021 2:[facility] CALCI[facility] S/P/B 10.4(H) 8.5 - 10.1 MG/DL 04/30/2021 2:19 PM [facility] BILIRUBIN TOTAL S/P/B 0.7 0.2 - 1.2 MG/DL 04/30/2021 2:19 PM [facility] TOTAL PROTEIN S/P/B 7.9 6.4 - 8.2 G/DL 04/30/2021 2:19 PM [facility] ALBUMIN S/P/B 4.4 3.4 - 5.0 G/DL 04/30/2021 2:19 PM [facility] AST 28 15 - 37 U/L 04/30/2021 2:19 PM [facility] ALT 21 14 - 55 U/L 04/30/2021 2:19 PM [facility] ALKALINE PHOSPHATASE S/P/B 104 50 - 136 U/L 04/30/2021 2:19 PM [facility] ANION GAP 8.0 5 - 15 MMOL/L 04/30/2021 2:19 PM [facility] BUN CREATININE RATIO 22.5 6 - 26 04/30/2021 2:19 PM [facility] A/G RATIO 1.3 1.0 - 2.0 RATIO 04/30/2021 2:19 PM [facility] EGFR NON-AFR. AMER. >90 >90 ML/MIN/1.7 3 M2 04/30/2021 2:19 PM [facility] EGFR AFR. AMER. >90 >90 ML/MIN/1.7 3 M2 04/30/2021 2:19 PM [facility] Comment: NOTE: eGFR is not calculated for patients <18 years of age. This is an estimated GFR (CKD EPI) and should not be used for calculating drug doses. 04/30/2021 8:38 AM CDT us Katherine [facility] Final Result Performing Organization Address [facility] Co de Phone Number [facility] [address] [place] [address], [place] [phone] * TSH W/REFLEX (04/30/2021 8:38 AM CDT) TSH 2.161 0.358 - 3.74 uIU/ML 04/30/2021 2:19 PM CDT [facility] Comment: HIGH DOSES OF BIOTIN MAY INTERFERE WITH THIS TEST RESULT. CORRELATION TO CLINICAL HISTORY AND PRESENTATION RECOMMENDED. FREE T4 NOT INDICATED 04/30/2021 8:38 AM CDT us Katherine [facility] Final Result Performing Organization Address [facility] de Phone Number [facility] [address] [place] [address], [place] [phone] * VITAMIN D, 25 OH (04/30/2021 8:38 AM CDT) VITAMIN D 25 HYDROXY S/P/B 36 30 - 100 NG/ML 04/30/2021 2:18 PM CDT [facility] Comment: ? INTERPRETATION ? DEFICIENT ??<20 ? INSUFFICIENT 20-29 ?SUFFICIENT 30-100 04/30/2021 8:38 AM CDT us Katherine [facility] Final Result Performing Organization Address [facility]/ZIP Co de Phone Number [facility] [address] [facility] [place] [address], [place] [phone] * (ABNORMAL) CBC W/DIFF AUTOMATED (04/30/2021 8:38 AM CDT) WBC 6.2 4.4 - 11.0 x10'3/uL 04/30/2021 1:25 PM CDT [facility] RBC 5.14(H) 4.50 - 5.10 x10'6/uL 04/30/2021 1:25 PM CDT [facility] HGB 14.9 12.3 - 15.3 G/DL 04/30/2021 1:25 PM CDT [facility] HCT 44.9(H) 35.9 - 44.6 % 04/30/2021 1:25 PM CDT [facility] MCV 87.4 80.0 - 96.0 FL 04/30/2021 1:25 PM CDT [facility] MCH 29.0 25.3 - 30.9 PG 04/30/2021 1:25 PM CDT [facility] MCHC 33.2 31.0 - 34.1 G/DL 04/30/2021 1:25 PM CDT [facility] RDW 12.2(L) 12.4 - 15.1 % 04/30/2021 1:25 PM CDT [facility] PLT 253 151 - 353 x10'3/uL 04/30/2021 1:25 PM CDT [facility] MPV 10.6 9.6 - 12.0 FL 04/30/2021 1:25 PM CDT [facility] RBC MORPHOLOGY NORMAL 04/30/2021 1:25 PM CDT [facility] PLT MORPH. NORMAL 04/30/2021 1:25 PM CDT [facility] WBC MORPHOLOGY NORMAL 04/30/2021 1:25 PM CDT [facility] LYMPHOCYTES % 32.6 15.8 - 45.0 % 04/30/2021 1:25 PM CDT [facility] NEUTROPHILS % 55.4 42.1 - 71.9 % 04/30/2021 1:25 PM CDT [facility] MONOCYTES % 9.4 5.7 - 12.5 % 04/30/2021 1:25 PM CDT [facility] EOSINOPHILS 2.1 0.0 - 5.6 % 04/30/2021 1:25 PM CDT [facility] BASOPHILS 0.3 0.0 - 1.3 % 04/30/2021 1:25 PM CDT [facility] ABS. NEUTROPHILS TOTAL 3.44 1.40 - 6.00 x10'3/uL 04/30/2021 1:25 PM T [facility] IMMATURE GRANS % 0.2 0.0 - 0.5 % 04/30/2021 1:25 PM CDT [facility] ABS. LYMPHOCYTES 2.02 0.80 - 4.70 x10'3/uL 04/30/2021 1:25 PM T [facility] 04/30/2021 8:38 AM CDT us Katherine [facility] Final Result [facility] [address] [place] [address], [place] [phone] documented in this encounter Visit Diagnoses Diagnosis Routine general medical examination at a health care facility- Primary Well woman exam Routine general medical examination at a health care facility Cervical cancer screening Screening for malignant neoplasm of the cervix Menopause Asymptomatic postmenopausal status (age-related) (natural) documented in this encounter Additional Health Concerns Assessment Noted Time PHQ-9 Depression Total Score: 0 04/30/20 21 7:52 AM CDT documented as of this encounter Care Teams Street Worker Relationship Specialty [place] [address] [place] [address] PCP - General PHYSICIAN DOLL WIG HACKLER 11/07/19 documented as of this encounter
--- OUTSIDE RECORDS SUMMARY | 2024-09-22 18:20 | XMS_ITS | Encounter Summary ---
Author Organization [facility] Address [address] [place] [address]. [place], [place] [address] [place] [address] Care Team Providers Care Take Down Sorter Name Role Phone Katherine Shelton Primary Care Provider [phone] Encounter Details Date Type Department Care Team (Latest Contact Info) Description 07/18/2023 Scan [facility] INFO SR[facility]CS Scanned, Doc Med Group Social History Tobacco Use Types Packs/Day Years [...] documented as of this encounter Care Teams Take Down Sorter Relationship Specialty [place] [address] [place] [address] PCP - General PHYSICIAN SALT CUTTER 11/07/19 documented as of this encounter
--- OUTSIDE RECORDS SUMMARY | 2024-09-22 18:20 | XMS_ITS | Patient Health Summary ---
Author Organization [facility] Address [address] [facility] [place] [address] Care Team Providers Care Furnace Caretaker Name Role Phone Danial Pereira MD Primary Care Provider Note from [facility],non-owned Affiliates and Associated Physician Practices is amultiple site organization consisting of ambulatory clinics and hospital sitesin [place], [place], [place]. This disclosure is being madepursuant to the Care Everywhere program and may not contain all information available regarding this patient. Last updated 18.[facility] Social History Tobacco Use Types Packs/Day Years Used Date Smoking Tobacco: Never Assessed Sex and Gender Information Value Date Recorded Sex Assigned at Not on file Gender Identity Not on file Sexual Orientation Not on file Procedures * DERMATOPATHOLOGY(Performed 06/18/2021) * DERMATOPATHOLOGY(Performed 09/04/2020) * DERMATOPATHOLOGY(Performed 01/10/2018) * DERMATOPATHOLOGY(Performed 04/02/2013) * DERMATOPATHOLOGY(Performed 04/02/2013) * DERMATOPATHOLOGY(Performed 02/27/2013) * DERMATOPATHOLOGY(Performed 08/30/2012) Results * DERMATOPATHOLOGY (06/18/2021 3:33 AM CDT) Only the most recent of7 resultswithin the time period is included. Case Report Dermatopathology Report ? Case: [id number] ? Authorizing Provider: ??Leyda Mayo MD ? Collected: ? 06/18/2021 03:33 AM ? Ordering Location: ? [facility] ?Received: ?06/19/2021 07:03 AM ? Pathologist: ? Corinna Tracy MD ? Specimen: ?Skin, right upper back ? 3:26 PM T DERMATOPATHOLOGY LABORATORY Final Diagnosis Specimen A. SKIN, right upper back: ACTINIC KERATOSIS, LICHENOID (L57.0) 3:26 PM T DERMATOPATHOLOGY LABORATORY Clinical History R/O BCC, irritated. 3:26 PM T DERMATOPATHOLOGY LABORATORY Gross Description Specimen A: Received is one formalin filled container labeled with the patient's name and designated right upper back. The specimen consists of a shave measuring 8q4p6on. Jar 0. 3:26 PM T DERMATOPATHOLOGY LABORATORY Microscopic Description Specimen A. SKIN, right upper back: There is focal parakeratosis. The lower half of the epidermis shows disorderly maturation of keratinocytes with nuclear pleomorphism. The dermis shows a band-like, chronic inflammatory infiltrate with occasional apoptotic keratinocytes and some basal vacuolar alteration. 3:26 PM T DERMATOPATHOLOGY LABORATORY Disclaimer An external and internal positive and negative controls are appropriate for the histochemical, immunohistochemical and immunofluorescence stain(s) in this case (if any), except where stated explicitly. The performance characteristics of the stain(s) cited in this report were developed and its performance characteristic determined by the Dermatopathology Laboratory at [facility], directed by Dr. Chava Parham. These tests need not be, and therefore are not, approved by the [place] Food and Drug Administration. The tests are used for clinical purposes. Billing Codes Specimen Charges Stain Charges 36656 1 3:26 PM CDT DERMATOPATHOLOGY LABORATORY Embedded Images 3:26 PM CDT DERMATOPATHOLOGY LABORATORY Pathology/Cytolo gy TISSUE SPECIMEN FROM SKIN / Unknown 06/18/2021 3:33 AM CDT 06/19/2021 7:03 AM CDT Leyda Mayo MD LAB - PATHOLOGY/CYT OLOGY ORDERABLES DERMATOPATHOLOGY LABORATORY [facility] - Department of Dermatology [facility] [address] [place] [address], [address] [phone] Care Teams Furnace Caretaker Relationship Specialty Start Date End Date Danial Pereira MD [address] [place] [address] PCP - General 03/21/12
--- OUTSIDE RECORDS SUMMARY | 2024-09-22 18:20 | XMS_ITS | Encounter Summary ---
Author Organization [facility] Address [address] [place] [address]. [place], [place] [address] [place] [address] Care Team Providers Care Export Freight Clerk Name Role Phone Katherine Shelton Primary Care Provider + [phone] Reason for Visit * Reason Comments New Patient to establish pain un rach breast since Tuesday evening and cough and congestion x 2 weeks Encounter Details Date Type Department Care Team (Late st Contact Info) Description 11/07/2019 8:00 AM RESIDENTIAL GAS HEAT TECHNICIAN Office Visit [facility] [address] [address] Katherine Shelton PA [address] [place] [address] New Patient (to establish pain under breast since Tuesday evening and cough and congestion x 2 weeks ) Social History Tobacco Use Types Packs/Day Years [...] Sign Reading Time Taken Comments Blood Pressure 110/70 11/07/2019 8:05 AM RESIDENTIAL GAS HEAT TECHNICIAN Pulse 65 11/07/2019 8:05 AM RESIDENTIAL GAS HEAT TECHNICIAN Temperature - - Respiratory Rate 16 11/07/2019 8:05 AM RESIDENTIAL GAS HEAT TECHNICIAN Oxygen Saturation 98% 11/07/2019 8:05 AM RESIDENTIAL GAS HEAT TECHNICIAN Inhaled Oxygen Concentration - - Weight 76.1 kg (167 lb 12.8 oz) 11/07/2019 8:05 AM RESIDENTIAL GAS HEAT TECHNICIAN Height 172.7 cm (5' 8 ) 11/07/2019 8:05 AM RESIDENTIAL GAS HEAT TECHNICIAN Body Mass Index 25.51 11/07/2019 8:05 AM RESIDENTIAL GAS HEAT TECHNICIAN documented in this encounter Patient Instructions * Patient Instructions* RAFAEL Garcia - 11/07/2019 8:00 AM RESIDENTIAL GAS HEAT TECHNICIAN Images from the original note were not included. Patient Education Patient Education Acute Bronchitis Discharge Instructions, Adult About this topic Acute bronchitis is a problem with your lungs. It can last for a short time or for a longer time. The lining of the airways to the lungs are irritated and swollen. It is a mild health problem that most often goes away on its own. What care is needed at home? ?? Ask your doctor what you need to do when you go home. Make sure you ask questions if you do not understand what the doctor says. This way you will know what you need to do. ?? Prop your head and shoulders on pillows when you lie down. This may make it easier to breathe. ?? Use a cool mist humidifier to help with breathing. Be sure to clean it thoroughly with a mild bleach solution weekly. This will help prevent germs from growing in the water chamber. ?? Drink 8 to 10 glasses of water each day. This will help keep the mucus thin. It will also help prevent fluid loss. ?? Your doctor may teach you some breathing exercises. What follow-up care is needed? ?? Your doctor may ask you to make visits to the office to check on your progress. Be sure to keep these visits. ?? It may take 1 to 2 weeks to feel better. ?? Ask your doctor if you need a vaccine to prevent problems from bronchitis. What drugs may be needed? Take your drugs as ordered by your doctor. The doctor may order drugs to: ?? Make breathing easier ?? Control coughing ?? Lower swelling in your airways ?? Prevent infection ?? Control extra mucus Will physical activity be limited? Your physical activities may be limited as long as you have the signs of this health problem. Avoidheavy and tiring activities. Talk to your doctor about the right amount of activity for you. What problems could happen? ?? Long-term swelling of the lungs. This is chronic bronchitis. ?? Asthma ?? Lung infection ?? Cough continues even after you feel better What can be done to prevent this health problem? ?? Wash your hands often with soap and water for at least 20 seconds, especially after coughing or sneezing. Alcohol-based hand sanitizers also work to kill the virus. ?? If you are sick, cover your mouth and nose with tissue when you cough or sneeze. You can also cough into your elbow. Throw away tissues in the trash and wash your hands after touching used tissues. ?? Do not get too close (kissing, hugging) to people who are sick. ?? Do not share towels or hankies with anyone who is sick. ?? Clean commonly handled things like door handles, remotes, toys, and phones. Wipe them with a disinfectant. ?? Stay away from crowded places. ?? Stop smoking. Stay away from dust and fumes. ?? Get a flu shot each year. When do I need to call the doctor? ?? Signs of infection. These include a fever of 100.4??F (38??C) or higher, chills, cough, more sputum or change in color of sputum. ?? Breathing is getting worse: harder or faster than before or you feel like you are getting less air ?? You need to lean forward to help you breathe when sitting ?? You are using your rib muscles to help you breathe. You see the skin between your ribs going in as you breathe. ?? Trouble breathing when lying down flat on your back ?? Feeling extra sleepy or confused ?? Fingertips, fingernails, skin, or lips are blue ?? You are not feeling better in 2 to 3 days or you are feeling worse Teach Back: Helping You Understand The Teach Back Method helps you understand the information we are giving you. The idea is simple. After talking with the staff, tell them in your own words what you were just told. This helps to makesure the staff has covered each thing clearly. It also helps to explain things that may have been abit confusing. Before going home, make sure you are able to do these: ?? I can tell you about my condition. ?? I can tell you what may help ease my breathing. ?? I can tell you what I will do if I have more trouble breathing, it is harder to breathe, or I feel like I am getting less air. Where can I learn more? [employer] https://familydoctor.org/condition/acute-bronchitis/ NHS Choices https://www.nhs.uk/conditions/bronchitis/ Last Reviewed Date 2017-11-04 Consumer Information Use and Disclaimer This information is not specific medical advice and does not replace information you receive from your health care provider. This is only a brief summary of general information. It does NOT include all information about conditions, illnesses, injuries, tests, procedures, treatments, therapies, discharge instructions or life-style choices that may apply to you. You must talk with your health care provider for complete information about your health and treatment options. This information should not be used to decide whether or not to accept your health care provider???s advice, instructions or recommendations. Only your health care provider has the knowledge and training to provide advice that is right for you. Copyright Copyright ?? 2019 [employer]. and its affiliates and/or licensors. All rights reserved. DENTIAL GAS HEAT TECHNICIAN documented in this encounter Progress Notes * RAFAEL Garcia - 11/07/2019 8:00 AM CST Images from the original note were not included. _ Reason for Visit: New Patient (to establish pain under breast since Tuesday evening and cough and congestion x 2 weeks) History of Present Illness: HPI Teresa Pepe is a 49-year-old female here for 14 days of coughing congestion mild wheezing she has pain on her left chest wall it hurts take a deep breath . Hurts to touch it. She has not had any temperatures. Her symptoms do not appear to be improving she actually thinks are getting worse. Is what sparked her appointment ROS: Review of Systems Feeling sick Denies dysphagia, heartburn or indigestion. No dyspnea or chest pain on exertion. No nausea, abdominal pain, change in bowel habits, black or bloody stools. No urinary tract symptoms. Nomuscle or joint aches or pains. No foot or leg edema. No numbness, tingling,or weakness. No anxietyor depressive symptoms, Sleeping well. No significant weight gain or loss. No fatigue. Medications: Outpatient Medications Marked as Taking for the 11/07/19 encounter (Office Visit) with RAFAEL Garcia Medication Sig Dispense Refill ??? azithromycin 250 MG tablet Take 2 tablets by mouth on day one then 1 daily for four days. 6 tablet 0 ??? diclofenac EC 75 MG tablet Take 1 tablet (75 mg total) by mouth 2 (two) times daily. 180 tablet0 ??? fluticasone propionate (FLONASE) 50 MCG/ACT nasal spray 1 spray by Nasal route daily. 18.2 mL 1 Allergies Allergen Reactions ??? Sulfa Antibiotics Itching [...] ??? MGF ??? PGM ??? PGF PHQ-2 1. Little Interest or pleasure in doing things: 0-Not at All 2. Feeling down,depressed,or hopeless: 0-Not at All PHQ-2 Score - If the patient scores above 3, please move on to questions 3-9: 0 Physical Exam Constitutional: Patient is oriented to person, place, and time. Patient appears well-developed and well-nourished. HENT: Right Ear: External ear normal. Left Ear: External ear normal. TMs that air-fluid levels bilaterally Head: Normocephalic. Nose: Nose normal. Turbinates are swollen mouth/Throat: Oropharynx is clear and moist. Throat did have postnasal drainage Eyes: Pupils are equal, round, and reactive to light. Neck: No JVD present. No thyromegaly present. Neck and positive lymph nodes Cardiovascular: Normal rate, regular rhythm, normal heart sounds and intact distal pulses. No murmur heard. Pulmonary/Chest: No respiratory distress. Patient has no wheezes. Patient has no rales. Patient exhibits no tenderness. There are some mild rhonchi no wheezing Abdominal: Patient exhibits no distension and no mass. There is no tenderness. There is no rebound and no guarding. Musculoskeletal: Normal range of motion. Patient exhibits no edema, tenderness or deformity. Lymphadenopathy: Patient has cervical adenopathy. Neurological: Patient is alert and oriented to person, place, and time. Skin: No rash noted. No erythema. Psychiatric: Patient has a normal mood and affect. The behavior is normal. Thought content normal. No flowsheet data found. Vitals: 11/07/19 0805 BP: 110/70 Pulse: 65 Body mass index is 25.51 kg/m??. Diagnoses/Impression: 1. Bronchitis diclofenac EC 75 MG tablet azithromycin 250 MG tablet fluticasone propionate (FLONASE) 50 MCG/ACT nasal spray 2. Costochondritis Orders Placed This Encounter ??? vitamin D2, ergocalciferol, [address]646 UNITS capsule ??? diclofenac EC 75 MG tablet ??? azithromycin 250 MG tablet ??? fluticasone propionate (FLONASE) 50 MCG/ACT nasal spray Recommendations and Plan: See patient instructions She is a previous patient of mine she will schedule her wellness examination Patient should follow annual wellness exams recommended for age and sex of patient. Items to consider but not limited included yearly annual fasting labs, colonscopy or cologuard when indicated. PSA and prostate for males. Mammogram and female exam for females, Katherine Shelton PA-C evaluated and Dr Wilfrido De Oliveira reviewed and agrees with plan. 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
--- OUTSIDE RECORDS SUMMARY | 2024-09-22 18:21 | XMS_ITS | Encounter Summary ---
Author Organization [facility] Address [address] [place] [address]. [place], [place] [address] [place] [address] Care Team Providers Care Pediatric Medical Assistant Name Role Phone Katherine Shelton Primary Care Provider Encounter Details Date Type Department Care Team (Latest Contact Info) Description 09/10/2015 Scan HEALTH INFO SRVCS Scanned, Documents Social History Tobacco Use Types Packs/Day Years Used Date Smoking Tobacco: Never Assessed Comments Unknown Sex and Gender Information Value Date Recorded [...] on filedocumented in this encounter Care Teams Pediatric Medical Assistant Relationship Specialty [place] [address] [place] [address] PCP - General PHYSICIAN VIDEO GAME PRODUCER 11/07/19 documented as of this encounter
--- OUTSIDE RECORDS SUMMARY | 2024-09-22 18:21 | XMS_ITS | Encounter Summary ---
Author Organization [facility] Address [address] [place] [address]. [place], [place] [address] [place] [address] Care Team Providers Care Svp Digital Ad Sales Name Role Phone Katherine Shelton Primary Care Provider [phone] Encounter Details Date Type Department Care Team (Latest Contact Info) Description 04/21/2015 Scan HEALTH INFO SRVCS Scanned, Documents Social [...] on filedocumented in this encounter Care Teams Svp Digital Ad Sales Relationship Specialty [place] [address] [place] [address] PCP - General PHYSICIAN BULK DELIVERY DRIVER 11/07/19 documented as of this encounter
--- OUTSIDE RECORDS SUMMARY | 2024-09-22 18:21 | XMS_ITS | Encounter Summary ---
Author Organization [facility] Address [address] [place] [address]. [place], [place] [address] [place] [address] Care Team Providers Care Blasting Contract Miner Name Role Phone Katherine Shelton Primary Care Provider [phone] Encounter Details Date Type Department Care Team (Latest Contact Info) Description 09/22/2015 Scan HEALTH INFO SRVCS Scanned, Documents Social [...] on filedocumented in this encounter Care Teams Blasting Contract Miner Relationship Specialty [place] [address] [place] [address] PCP - General PHYSICIAN SOFTWARE ASSET MANAGER 11/07/19 documented as of this encounter
--- OUTSIDE RECORDS SUMMARY | 2024-09-22 18:21 | XMS_ITS | Encounter Summary ---
Author Organization [facility] Address [address] [place] [address]. [place] [address] [place] [address] Care Team Providers Care Plant Puller Name Role Phone Katherine Shelton Primary Care Provider + [phone] Reason for Visit * Reason Comments Lab (SCAN) CBC WITH DIFF Encounter Details Date Type Department Care Team ([facility] Contact Info) Description 12/31/2014 Scan HEALTH INFO SRVCS Scanned, Documents Lab (SCAN) (CBC WITH DIFF) Social History Tobacco Use Types Packs/Day Years [...] Name Priority Date/Time Associated Diagnosis Comments OUTSIDE LAB (SCAN ORDER) Routine 12/31/2014 documented in this encounter Results * OUTSIDE LAB (12/31/2014) 12/31/2014 us Documents Scanned SCANNING Edited Result - Final [facility] [place] documented in this encounter Visit Diagnoses Not on filedocumented in this encounter Care Teams Plant Puller Relationship Specialty [place] [address] [place] [address] PCP - General PHYSICIAN TECHNICAL PROPOSAL WRITER 11/07/19 documented as of this encounter
--- OUTSIDE RECORDS SUMMARY | 2024-09-22 18:21 | XMS_ITS | Encounter Summary ---
Author Organization [facility] Address [address] [place] [address]. [place] [address] [place] [address] Care Team Providers Care Mine Inspector Federal Name Role Phone Katherine Shelton Primary Care Provider + [phone] Reason for Visit * Reason Comments Mammogram (SCAN) Encounter Details Date Type Department Care Team ([facility] Contact Info) Description 07/19/2018 Scan MG HEALTH INFO SRVCS Scanned, Documents Mammogram (SCAN) Social History Tobacco Use Types [...] Associated Diagnosis Comments MAMMOGRAM GENERIC (SCAN ORDER) Routine 07/19/2018 documented in this encounter Results * MAMMOGRAM (07/19/2018) Anatomical Region Laterality Modality Other us Documents Scanned SCANNING Edited Result - Final documented in this encounter Visit Diagnoses Not on filedocumented in this encounter Care Teams Mine Inspector Federal Relationship Specialty [place] [address] [place] [address] PCP - General PHYSICIAN PALLET STONE INSERTER 11/07/19 documented as of this encounter
--- OUTSIDE RECORDS SUMMARY | 2024-09-22 18:21 | XMS_ITS | Encounter Summary ---
Author Organization [facility] Address [address] [place] [address]. [place], [place] [address] [place] [address] Care Team Providers Care Drafter Electromechanical Name Role Phone Katherine Shelton Primary Care Provider + [phone] Reason for Visit * Reason Comments Lab (SCAN) HEMOGLOBIN, HEMATOCR IT Encounter Details Date Type Department Care Team ([facility] Contact Info) Description 09/22/2015 Scan HEALTH INFO SRVCS Scanned, Documents Lab (SCAN) (HEMOGLOBIN, HEMATOCRIT) Social History Tobacco Use Types Packs/Day Years [...] Diagnosis Comments OUTSIDE LAB (SCAN ORDER) Routine 09/22/2015 documented in this encounter Results * OUTSIDE LAB (09/22/2015) 09/22/2015 us Documents Scanned SCANNING Edited Result - Final [facility] [place] documented in this encounter Visit Diagnoses Not on filedocumented in this encounter Care Teams Drafter Electromechanical Relationship Specialty [place] [address] [place] [address] PCP - General PHYSICIAN INDUSTRY SEGMENT SPECIALIST 11/07/19 documented as of this encounter
--- OUTSIDE RECORDS SUMMARY | 2024-09-22 18:21 | XMS_ITS | Encounter Summary ---
Author Organization [facility] Address [address] [place] [address]. [place], [place] [address] [place] [address] Care Team Providers Care Cigarette Tipper Name Role Phone Katherine Shelton Primary Care Provider + [phone] Reason for Visit * Reason Comments Pap Smear (SCAN) THINPREP VIAL Encounter Details Date Type Department Care Team ([facility] Contact Info) Description 11/09/2017 Scan HEALTH INFO SRVCS Scanned, Documents Pap Smear (SCAN) (THINPREP VIAL) Social History Tobacco Use Types Packs/Day Years [...] CERV/VAG IN TERPRET (PAP) (SCAN ORDER) Routine 11/09/2017 documented in this encounter Results * PAP SMEAR (11/09/2017) 11/09/2017 us Documents Scanned SCANNING Edited Result - Final [facility] documented in this encounter Visit Diagnoses Not on filedocumented in this encounter Care Teams Cigarette Tipper Relationship Specialty [place] [address] [place] [address] PCP - General PHYSICIAN METAL FABRICATOR WELDER 11/07/19 documented as of this encounter
--- OUTSIDE RECORDS SUMMARY | 2024-09-22 18:21 | XMS_ITS | Encounter Summary ---
Author Organization [facility] Address [address] [place] [address]. [place], [place] [address] [place] [address] Care Team Providers Care Issuer Name Role Phone Katherine Shelton Primary Care Provider + [phone] Reason for Visit * Reason Comments Lab (SCAN) [facility] Encounter Details Date Type Department Care Team ([facility] Contact Info) Description 03/16/2012 Scan HEALTH INFO SRVCS Scanned, Documents Lab (SCAN) ([facility] ) Social History Tobacco Use Types Packs/Day [...] Diagnosis Comments OUTSIDE LAB (SCAN ORDER) Routine 03/16/2012 documented in this encounter Results * OUTSIDE LAB (03/16/2012) 03/16/2012 us Documents Scanned SCANNING Edited Result - [facility] documented in this encounter Visit Diagnoses Not on filedocumented in this encounter Care Teams Issuer Relationship Specialty [place] [address] [place] [address] PCP - General PHYSICIAN SEXUAL ASSAULT NURSE 11/07/19 documented as of this encounter
--- OUTSIDE RECORDS SUMMARY | 2024-09-22 18:21 | XMS_ITS | Encounter Summary ---
Author Organization [facility] Address [address] [place] [address]. [place], [place] [address] [place] [address] Care Team Providers Care Vertical Contour Band Saw Operator Name Role Phone Katherine Shelton Primary Care Provider [phone] Encounter Details Date Type Department Care Team (Latest Contact Info) Description 02/14/2014 Scan HEALTH INFO SRVCS Scanned, Documents Social [...] on filedocumented in this encounter Care Teams Vertical Contour Band Saw Operator Relationship Specialty [place] [address] [place] [address] PCP - General PHYSICIAN TECHNICAL ILLUSTRATIONS MAP INKER 11/07/19 documented as of this encounter
--- OUTSIDE RECORDS SUMMARY | 2024-09-22 18:21 | XMS_ITS | Encounter Summary ---
Author Organization [facility] Address [address] [place] [address]. [place], [place] [address] [place] [address] Care Team Providers Care Truck Driver Salesperson Name Role Phone Katherine Shelton Primary Care Provider [phone] Encounter Details Date Type Department Care Team (Latest Contact Info) Description 10/01/2015 Scan HEALTH INFO SRVCS Scanned, Documents Social [...] on filedocumented in this encounter Care Teams Truck Driver Salesperson Relationship Specialty [place] [address] [place] [address] PCP - General PHYSICIAN CHILD ABUSE WORKER 11/07/19 documented as of this encounter
--- OUTSIDE RECORDS SUMMARY | 2024-09-22 18:21 | XMS_ITS | Encounter Summary ---
Author Organization [facility] Address [address] [place] [address]. [place], [place] [address] [place] [address] Care Team Providers Care Elementary School Teacher'S Aide Name Role Phone Katherine Shelton Primary Care Provider [phone] Encounter Details Date Type Department Care Team (Latest Contact Info) Description 11/15/2018 Scan HEALTH INFO SRVCS Scanned, Documents Social [...] on filedocumented in this encounter Care Teams Elementary School Teacher'S Aide Relationship Specialty [place] [address] [place] [address] PCP - General PHYSICIAN PROCESS CHEESE COOKER 11/07/19 documented as of this encounter
--- OUTSIDE RECORDS SUMMARY | 2024-09-22 18:21 | XMS_ITS | Encounter Summary ---
Author Organization [facility] Address [address] [place] [address]. [place], [place] [address] [place] [address] Care Team Providers Care Cloth Tearer Name Role Phone Katherine Shelton Primary Care Provider Encounter Details Date Type Department Care Team (Latest Contact Info) Description 04/30/2015 Scan HEALTH INFO SRVCS Scanned, Documents Social [...] on filedocumented in this encounter Care Teams Cloth Tearer Relationship Specialty [place] [address] [place] [address] PCP - General PHYSICIAN PROJECT COORDINATOR RN 11/07/19 documented as of this encounter
--- OUTSIDE RECORDS SUMMARY | 2024-09-22 18:21 | XMS_ITS | Encounter Summary ---
Author Organization [facility] Address [address] [place] [address]. [place], [place] [address] [place] [address] Care Team Providers Care Menu Planner Name Role Phone Katherine Shelton Primary Care Provider + [phone] Reason for Visit * Reason Comments Lab (SCAN) Pathology (SCAN) Encounter Details Date Type Department Care Team ([facility] Contact Info) Description 11/15/2018 Scan HEALTH INFO SRVCS Scanned, Documents Lab (SCAN); Pathology (SCAN) Social History Tobacco Use Types Packs/Day [...] Procedure Name Priority Date/Time Associated Diagnosis Comments PATHOLOGY GENERIC (SCAN ORDER) Routine 11/15/2018 OUTSIDE LAB (SCAN ORDER) Routine 11/15/2018 documented in this encounter Results * PATHOLOGY (11/15/2018) 11/15/2018 us Documents Scanned SCANNING Edited Result - Final [address] [address] * OUTSIDE LAB (11/15/2018) 11/15/2018 us Documents Scanned SCANNING Edited Result - Final [facility] [address] [address] documented in this encounter Visit Diagnoses Diagnosis Encounter for Papanicolaou smear for cervical cancer screening documented in this encounter Care Teams Menu Planner Relationship Specialty [place] [address] [place] [address] PCP - General PHYSICIAN DEVOPS ARCHITECT 11/07/19 documented as of this encounter
--- OUTSIDE RECORDS SUMMARY | 2024-09-22 18:21 | XMS_ITS | Encounter Summary ---
Author Organization [facility] Address [address] [place] [address]. [place], [place] [address] [place] [address] Care Team Providers Care Developer Trading Systems Name Role Phone Katherine Shelton Primary Care Provider Encounter Details Date Type Department Care Team (Latest Contact Info) Description 09/15/2015 Scan HEALTH INFO SRVCS Scanned, Documents Social [...] on filedocumented in this encounter Care Teams Developer Trading Systems Relationship Specialty [place] [address] [place] [address] PCP - General PHYSICIAN SERGING MACHINE OPERATOR AUTOMATIC 11/07/19 documented as of this encounter
--- OUTSIDE RECORDS SUMMARY | 2024-09-22 18:21 | XMS_ITS | Encounter Summary ---
Author Organization [facility] Address [address] [place] [address]. [place], [place] [address] [place] [address] Care Team Providers Care Membership Solicitor Name Role Phone Katherine Shelton Primary Care Provider [phone] Encounter Details Date Type Department Care Team (Latest Contact Info) Description 11/09/2017 Scan HEALTH INFO SRVCS Scanned, Documents Social [...] on filedocumented in this encounter Care Teams Membership Solicitor Relationship Specialty [place] [address] [place] [address] PCP - General PHYSICIAN APARTMENT GROUNDSKEEPER 11/07/19 documented as of this encounter
--- OUTSIDE RECORDS SUMMARY | 2024-09-22 18:21 | XMS_ITS | Encounter Summary ---
Author Organization [facility] Address [address] [place] [address]. [place], [place] [address] [place] [address] Care Team Providers Care Entry Level Finance Name Role Phone Katherine Shelton Primary Care Provider + [phone] Reason for Visit * Reason Comments Lab (SCAN) Encounter Details Date Type Department Care Team (Latest Contact Info) Description 05/02/2018 Scan MG HEALTH INFO SRVCS Scanned, Documents Lab (SCAN) Social History Tobacco Use Types Packs/Day [...] Diagnosis Comments OUTSIDE LAB (SCAN ORDER) Routine 05/02/2018 OUTSIDE LAB (SCAN ORDER) Routine 04/28/2018 documented in this encounter Results * OUTSIDE LAB (05/02/2018) 05/02/2018 us Documents Scanned SCANNING Edited Result - Final [facility] * OUTSIDE LAB (04/28/2018) 04/28/2018 us Documents Scanned SCANNING Edited Result - Final [facility] documented in this encounter Visit Diagnoses Not on filedocumented in this encounter Care Teams Entry Level Finance Relationship Specialty [place] [address] [place] [address] PCP - General PHYSICIAN RADIO SCRIPT WRITER 11/07/19 documented as of this encounter
--- OUTSIDE RECORDS SUMMARY | 2024-09-22 18:21 | XMS_ITS | Encounter Summary ---
Author Organization [facility] Address [address] [place] [address]. [place] [address] [place] [address] Care Team Providers Care Technical Solutions Director Name Role Phone Katherine Shelton Primary Care Provider + [phone] Reason for Visit * Reason Comments Ultrasound (SCAN) TA TV PELVIS Encounter Details Date Type Department Care Team ([facility] Contact Info) Description 01/16/2015 Scan HEALTH INFO SRVCS Scanned, Documents Ultrasound (SCAN) (TA TV PELVIS) Social History Tobacco Use Types Packs/Day Years [...] Procedure Name Priority Date/Time Associated Diagnosis Comments ULTRASOUND GENERIC (SCAN ORDER) Routine 01/16/2015 documented in this encounter Results * ULTRASOUND (01/16/2015) Anatomical Region Laterality Modality Other us Documents Scanned SCANNING Edited Result - Final documented in this encounter Visit Diagnoses Not on filedocumented in this encounter Care Teams Technical Solutions Director Relationship Specialty [place] [address] [place] [address] PCP - General PHYSICIAN KNITTED GOODS SHAPER 11/07/19 documented as of this encounter
--- OUTSIDE RECORDS SUMMARY | 2024-09-22 18:21 | XMS_ITS | Encounter Summary ---
Author Organization [facility] Address [address] [place] [address]. [place], [place] [address] [place] [address] Care Team Providers Care Steam Drier Operator Name Role Phone Katherine Shelton Primary Care Provider [phone] Encounter Details Date Type Department Care Team (Latest Contact Info) Description 01/25/2013 Scan HEALTH INFO SRVCS Scanned, Documents Social [...] on filedocumented in this encounter Care Teams Steam Drier Operator Relationship Specialty [place] [address] [place] [address] PCP - General PHYSICIAN MOTEL MANAGER 11/07/19 documented as of this encounter
--- OUTSIDE RECORDS SUMMARY | 2024-09-22 18:21 | XMS_ITS | Encounter Summary ---
Author Organization [facility] Address [address] [place] [address]. [place] [address] [place] [address] Care Team Providers Care Elementary Teacher Name Role Phone Katherine Shelton Primary Care Provider + [phone] Reason for Visit * Reason Comments Ultrasound (SCAN) TA TV PELVIS Encounter Details Date Type Department Care Team ([facility] Contact Info) Description 09/15/2015 Scan HEALTH INFO SRVCS Scanned, Documents Ultrasound [...] Diagnosis Comments ULTRASOUND GENERIC (SCAN ORDER) Routine 09/15/2015 documented in this encounter Results * ULTRASOUND (09/15/2015) Anatomical Region Laterality Modality Other us Documents Scanned SCANNING Edited Result - Final documented in this encounter Visit Diagnoses Not on filedocumented in this encounter Care Teams Elementary Teacher Relationship Specialty [place] [address] [place] [address] PCP - General PHYSICIAN DIRECTOR OF PREMIUM SEAT SALES 11/07/19 documented as of this encounter
--- OUTSIDE RECORDS SUMMARY | 2024-09-22 18:21 | XMS_ITS | Encounter Summary ---
Author Organization [facility] Address [address] [place] [address]. [place], [place] [address] [place] [address] Care Team Providers Care Duty Officer Name Role Phone Katherine Shelton Primary Care Provider + [phone] Reason for Visit * Reason Comments Lab (SCAN) BHCG, HEMOGLOBIN, HE MATOCRIT Encounter Details Date Type Department Care Team (Late Contact Info) Description 03/29/2012 Scan HEALTH INFO SRVCS Scanned, Documents Lab (SCAN) (BHCG, HEMOGLOBIN, HEMATOCRIT) Social History Tobacco Use Types Packs/Day [...] Diagnosis Comments OUTSIDE LAB (SCAN ORDER) Routine 03/29/2012 documented in this encounter Results * OUTSIDE LAB (03/29/2012) 03/29/2012 us Documents Scanned SCANNING Edited Result - Final [facility] documented in this encounter Visit Diagnoses Not on filedocumented in this encounter Care Teams Duty Officer Relationship Specialty [place] [address] [place] [address] PCP - General PHYSICIAN TRIM MACHINE OPERATOR 11/07/19 documented as of this encounter
--- OUTSIDE RECORDS SUMMARY | 2024-09-22 18:21 | XMS_ITS | Encounter Summary ---
Author Organization [facility] Address [address] [place] [address]. [place], [place] [address] [place] [address] Care Team Providers Care Lime Sludge Kiln Operator Name Role Phone Unavailable Primary Care Provider Unavailabl e Encounter Details Date Type Department Care Team (Late st Contact Info) Description 12/27/1994 Abstract [facility] CONVERSION [address] [place] [address] , Generic Conversion, Social History Tobacco Use Types Packs/Day Years [...]
--- OUTSIDE RECORDS SUMMARY | 2024-09-22 18:21 | XMS_ITS | Encounter Summary ---
Author Organization [facility] Address [address] [place] [address]. [place], [place] [address] [place] [address] Care Team Providers Care Sheet Metal Worker Maintenance Name Role Phone Katherine Sheltno Primary Care Provider [phone] Encounter Details Date Type Department Care Team (Latest Contact Info) Description 11/16/2011 Scan HEALTH INFO SRVCS Scanned, Documents Social [...] on filedocumented in this encounter Care Teams Sheet Metal Worker Maintenance Relationship Specialty [place] [address] [place] [address] PCP - General PHYSICIAN POLLS OR SURVEYS INTERVIEWER 11/07/19 documented as of this encounter
--- OUTSIDE RECORDS SUMMARY | 2024-09-22 18:21 | XMS_ITS | Encounter Summary ---
Author Organization [facility] Address [address] [place] [address]. [place], [place] [address] [place] [address] Care Team Providers Care Jailer/Training Officer Name Role Phone Katherine Shelton Primary Care Provider [phone] Encounter Details Date Type Department Care Team (Latest Contact Info) Description 01/24/2012 Scan HEALTH INFO SRVCS Scanned, Documents Social [...] on filedocumented in this encounter Care Teams Jailer/Training Officer Relationship Specialty [place] [address] [place] [address] PCP - General PHYSICIAN DAIRY MANUFACTURING TECHNOLOGIST 11/07/19 documented as of this encounter
--- OUTSIDE RECORDS SUMMARY | 2024-09-22 18:21 | XMS_ITS | Encounter Summary ---
Author Organization [facility] Address [address] [place] [address]. [place], [place] [address] [place] [address] Care Team Providers Care Cuffer Name Role Phone Unavailable Primary Care Provider Unavailabl e Encounter Details Date Type Department Care Team (Late st Contact Info) Description 12/09/1994 Abstract [facility] CONVERSION [address] [place] [address] , Generic Conversion, Social History [...]
--- OUTSIDE RECORDS SUMMARY | 2024-09-22 18:21 | XMS_ITS | Encounter Summary ---
Author Organization [facility] Address [address] [place] [address]. [place], [place] [address] [place] [address] Care Team Providers Care Greens Planter Name Role Phone Katherine Shelton Primary Care Provider [phone] Encounter Details Date Type Department Care Team (Latest Contact Info) Description 02/17/2015 Scan HEALTH INFO SRVCS Scanned, Documents Social [...] on filedocumented in this encounter Care Teams Greens Planter Relationship Specialty [place] [address] [place] [address] PCP - General PHYSICIAN HOG ROOM SUPERVISOR 11/07/19 documented as of this encounter
--- OUTSIDE RECORDS SUMMARY | 2024-09-22 18:21 | XMS_ITS | Encounter Summary ---
Author Organization [facility] Address [address] [place] [address]. [place], [place] [address] [place] [address] Care Team Providers Care Tabular Typist Name Role Phone Katherine Shelton Primary Care Provider Encounter Details Date Type Department Care Team (Latest Contact Info) Description 01/03/2015 Scan HEALTH INFO SRVCS Scanned, Documents Social [...] on filedocumented in this encounter Care Teams Tabular Typist Relationship Specialty [place] [address] [place] [address] PCP - General PHYSICIAN TRANSPORTATION PLANNER 11/07/19 documented as of this encounter
--- OUTSIDE RECORDS SUMMARY | 2024-09-22 18:21 | XMS_ITS | Encounter Summary ---
Author Organization [facility] Address [address] [place] [address]. [place], [place] [address] [place] [address] Care Team Providers Care Emergency Room Physician Name Role Phone Katherine Shelton Primary Care Provider [phone] Encounter Details Date Type Department Care Team (Latest Contact Info) Description 06/20/2015 Scan HEALTH INFO SRVCS Scanned, Documents Social [...] on filedocumented in this encounter Care Teams Emergency Room Physician Relationship Specialty [place] [address] [place] [address] PCP - General PHYSICIAN LOG INSPECTOR 11/07/19 documented as of this encounter
--- OUTSIDE RECORDS SUMMARY | 2024-09-22 18:21 | XMS_ITS | Encounter Summary ---
Author Organization [facility] Address [address] [place] [address]. [place], [place] [address] [place] [address] Care Team Providers Care Forming Machine Upkeep Mechanic Helper Name Role Phone Katherine Shelton Primary Care Provider [phone] Encounter Details Date Type Department Care Team (Latest Contact Info) Description 01/24/2015 Scan HEALTH INFO SRVCS Scanned, Documents Social [...] on filedocumented in this encounter Care Teams Forming Machine Upkeep Mechanic Helper Relationship Specialty [place] [address] [place] [address] PCP - General PHYSICIAN BUSINESS OFFICE SPECIALIST 11/07/19 documented as of this encounter
--- OUTSIDE RECORDS SUMMARY | 2024-09-22 18:21 | XMS_ITS | Encounter Summary ---
Author Organization [facility] Address [address] [place] [address]. [place], [place] [address] [place] [address] Care Team Providers Care Electro Mechanic Name Role Phone Katherine Shelton Primary Care Provider [phone] Encounter Details Date Type Department Care Team (Latest Contact Info) Description 05/15/2015 Scan HEALTH INFO SRVCS Scanned, Documents Social [...] on filedocumented in this encounter Care Teams Electro Mechanic Relationship Specialty [place] [address] [place] [address] PCP - General PHYSICIAN OBGYN HOSPITALIST PHYSICIAN 11/07/19 documented as of this encounter
--- OUTSIDE RECORDS SUMMARY | 2024-09-22 18:21 | XMS_ITS | Encounter Summary ---
Author Organization [facility] Address [address] [place] [address]. [place], [place] [address] [place] [address] Care Team Providers Care Home Health Care Respiratory Therapist Name Role Phone Katherine Shelton Primary Care Provider [phone] Encounter Details Date Type Department Care Team (Latest Contact Info) Description 04/28/2018 Scan HEALTH INFO SRVCS Scanned, Documents Social [...] on filedocumented in this encounter Care Teams Home Health Care Respiratory Therapist Relationship Specialty [place] [address] [place] [address] PCP - General PHYSICIAN HOME TEACHING GRADES 9 THRU 12 TEACHER 11/07/19 documented as of this encounter
--- OUTSIDE RECORDS SUMMARY | 2024-09-22 18:21 | XMS_ITS | Encounter Summary ---
Author Organization [facility] Address [address] [place] [address]. [place], [place] [address] [place] [address] Care Team Providers Care Continuous Pickling Line Pickler Name Role Phone Katherine Shelton Primary Care Provider [phone] Encounter Details Date Type Department Care Team (Latest Contact Info) Description 05/12/2015 Scan HEALTH INFO SRVCS Scanned, Documents Social [...] on filedocumented in this encounter Care Teams Continuous Pickling Line Pickler Relationship Specialty [place] [address] [place] [address] PCP - General PHYSICIAN FERMENTING CELLARS RECEIVER 11/07/19 documented as of this encounter
--- OUTSIDE RECORDS SUMMARY | 2024-09-22 18:21 | XMS_ITS | Encounter Summary ---
Author Organization [facility] Address [address] [place] [address]. [place] [address] [place] [address] Care Team Providers Care Attending Pathologist Name Role Phone Katherine Shelton Primary Care Provider + [phone] Reason for Visit * Reason Comments Image (SCAN) LUAN SCREEN DIAG W/3D Encounter Details Date Type Department Care Team ([facility] Contact Info) Description 06/21/2017 Scan HEALTH INFO SRVCS Scanned, Documents Image (SCAN) (LUAN SCREEN DIAG W/3D) Social History Tobacco Use Types Packs/Day Years [...] Diagnosis Comments MAMMOGRAM GENERIC (SCAN ORDER) Routine 06/21/2017 documented in this encounter Results * MAMMOGRAM (06/21/2017) Anatomical Region Laterality Modality Other us Documents Scanned SCANNING Edited Result - Final documented in this encounter Visit Diagnoses Not on filedocumented in this encounter Care Teams Attending Pathologist Relationship Specialty [place] [address] [place] [address] PCP - General PHYSICIAN BISCUITWARE BRUSHER 11/07/19 documented as of this encounter
== END 2024-09-15 12:48 | disposition home or self-care (01) ==
PROVIDERS: Emergency Provider Nurse Practitioner Family; PCP Physician Assistant
DX: J10.1 Influenza due to other identified influenza virus with other respiratory manifestations (principal); Z20.822 Contact with and (suspected) exposure to COVID-19
CPT/HCPCS: 87081; 87426; 87804; 87880; 99203; G0463

== ENCOUNTER 2025-02-11 12:53 | Emergency (ER) | payer OTHER, SELFPAY ==
--- NOTE | ~2025-02-11 | XR_ITS ---
CHEST RADIOGRAPH CLINICAL HISTORY: dizzy/headaches x few months . COMPARISON: None available TECHNIQUE: Single portable view of the chest. FINDINGS The cardiomediastinal silhouette is unremarkable. The lungs are clear. IMPRESSION: No focal infiltrate or effusion. Reviewed, dictated and finalized at location A.
[2025-02-11 12:54] VITALS: RESP 16
--- OUTSIDE RECORDS SUMMARY | 2025-02-11 12:55 | XMS_ITS | Encounter Summary ---
Author Organization [facility] Address [address] [facility] [place] [address] Care Team Providers Care Gas Appliance Repairer Name Role Phone Danial Pereira MD Primary Care Provider Encounter Details Date Type Department Care Team (Late st Contact Info) Description 09/05/2020 Lab Requisition [facility] Lab [address] [facility], [facility] [place] [address] Leyda Mayo MD [address] [facility] [address] [place] [address] Social History Tobacco Use Types Packs/Day Years Used Date Smoking Tobacco: Never Assessed Comments Unknown Sex and Gender Information Value Date Recorded Sex Assigned at Not on file Legal Sex Female 6:46 PM DIABETES EDUCATION COORDINATOR Gender Identity Not on file Sexual Orientation Not on file documented as of this encounter Plan of Treatment Not on file documented as of this encounter Procedures Procedure Name Priority Date/Time Associated Diagnosis Comments DERMATOPATHOLOGY Routine 09/04/2020 3:33 AM DIABETES EDUCATION COORDINATOR documented in this encounter Results * DERMATOPATHOLOGY (09/04/2020 3:33 AM DIABETES EDUCATION COORDINATOR) Case Report Dermatopathology Report Case: [id number] Authorizing Provider: Leyda Mayo MD Collected: 09/04/2020 03:33 AM Ordering Location: [facility] Derm[facility] Lab Received: 09/05/2020 07:47 AM Pathologist: Corinna Tracy MD Specimens: A) - Skin, upper back B) - Skin, sternal notch 0 2:09 PM DIABETES EDUCATION COORDINATOR DERMATOPATHOLOGY LABORATORY Final Diagnosis Specimen A. SKIN, upper back: SQUAMOUS CELL CARCINOMA, WELL DIFFERENTIATED (C44.529) Specimen B. 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 0 2:09 PM [facility] DERMATOPATH[facility] Gross Description Specimen A: Received is one formalin filled container labeled with the patient's name and designated upper back. The specimen consists of a shave measuring [id number], bisected. Jar 0. Specimen B: Received is one formalin filled container labeled with the patient's name and designated sternal notch. The specimen consists of a shave measuring [id number]. Jar 0. 0 2:09 PM [facility] DERMATOPATH[facility]Y [facility] Microscopic Description Specimen A. SKIN, upper back: Arising in the epidermis and extending into the dermis there are irregularly shaped aggregates of keratinocytes showing evidence of premature cornification. Specimen B. SKIN, sternal notch: The epidermis shows parakeratosis, full thickness disorderly maturation of keratinocytes, mitoses at different levels, and dyskeratotic cells. There is a column of marked compact hyperkeratosis. 0 2:09 PM [facility] DERMATOPATH[facility]Y [facility] Disclaimer An external and internal positive and negative controls are appropriate for the histochemical, immunohistochemical and immunofluorescence stain(s) in this case (if any), except where stated explicitly. The performance characteristics of the stain(s) cited in this report were developed and its performance characteristic determined by the Dermatopathology Laboratory at [facility], directed by Dr. Chava Parham. These tests need not be, and therefore are not, approved by the [place] Food and Drug Administration. The tests are used for clinical purposes. Billing Codes Specimen Charges Stain Charges 08518 46969 1 1 0 2:09 PM DIABETES EDUCATION COORDINATOR DERMATOPATHOLOGY LABORATORY Embedded Images 0 2:09 PM [facility]ERMAT[facility] Pathology/Cytology TISSUE SPECIMEN FROM SKIN / Unknown 09/04/2020 3:33 AM DIABETES EDUCATION COORDINATOR 09/05/2020 7:47 AM DIABETES EDUCATION COORDINATOR Miscellaneous samples (specimen) TISSUE SPECIMEN FROM SKIN / Unknown 09/04/2020 3:33 AM DIABETES EDUCATION COORDINATOR 09/05/2020 7:47 AM DIABETES EDUCATION COORDINATOR us Leyda Mayo MD LAB - PATHOLOGY/CYTOLOGY OR DERABLES Final Result DERMATOPATHOLOGY LABORATORY [facility] - Department of Dermatology [address] [phone] documented in this encounter Visit Diagnoses Not on filedocumented in this encounter Care Teams Gas Appliance Repairer Relationship Specialty Start Date End Date Danial Pereira MD [address] [place] [address] PCP - General 03/21/12 documented as of this encounter
--- OUTSIDE RECORDS SUMMARY | 2025-02-11 12:55 | XMS_ITS | Clinical Summary ---
Author Organization [facility] Address [address] [place] [address] Care Team Providers Care Philosophy Faculty Member Name Role Phone Danial Pereira MD Primary Care Provider [phone] [facility],non-owned Affiliates and Associated Physician Practices is amultiple site organization consisting of ambulatory clinics and hospital sitesin [place], [place], [place] and [place]. This disclosure is being madepursuant to the Care Everywhere program and may not contain all information available regarding this patient. Last updated 18.[facility] Social History Tobacco Use Types Packs/Day Years Used Date Smoking Tobacco: Never Assessed Comments Unknown Sex and Gender Information Value Date Recorded Sex Assigned at Not on file Legal Sex Female 6:46 PM FOLLOW UP MANAGER Gender Identity Not on file Sexual Orientation [...] SCREENING 1972 LIPID TESTING 1972 MAMMOGRAM 1972 HIV SCREENING 1987 HEPATITIS C SCREENING 08/19/1990 DTAP/TDAP/TD VACCINES (1 - Tdap) 1991 HEPATITIS B VACCINE (1 of 3 - 19+ 3-dose series) 1991 PNEUMOCOCCAL VACCINE 50+ (1 of 1 - PCV) 2022 ZOSTER VACCINE (1 of 2) 2022 COVID-19 VACCINE (1 - 2023-2 5 season) 2024 DEPRESSION SCREENING 09/19/2024 INFLUENZA VACCINE (Season Ended) 2025 HIB VACCINE Aged Out No longer eligi ble based on patient's age to complete this topic HPV VACCINE Aged Out No longer eligi ble based on patient's age to complete this topic MENINGOCOCCAL (Group B) VACC INE SHARED DECISION-MAKING Aged Out No longer eligibl e based on patient's age to complete this topic MENINGOCOCCAL GROUPS A/C/Y/W VACCINE Aged Out No longer eligible b ased on patient's age to complete this topic Insurance [facility] Care Teams Philosophy Faculty Member Relationship Specialty Start Date End Date Danial Pereira MD [address] [place] [address] PCP - General 03/21/12
[2025-02-11 13:04] VITALS: BP 131/94; PULSE 68; RESP 16; TEMP 36.1; O2SAT 100
--- NOTE | 2025-02-11 13:04 | ECG_ITS ---
Test Date: 2025-02-11 14:22:35 Measurements Intervals [place] Rate: 70 P: 81 WY: 171 QRS: 59 QRSD: 96 T: 30 QT: 402 QTc: 436 Interpretive Statements SINUS RHYTHM NONSPECIFIC T-WAVE ABNORMALITY No previous ECG available for comparison Electronically Signed On 02-11-2025 15:06:53 CDT by Maurizio Sanders M.D.
--- NOTE | 2025-02-11 13:07 | ED_ITS ---
HPI - Dizziness General Chief Complaint: Dizziness <Loren Gasca PA-C - Last Filed: 02/11/25 13:11> Stated Complaint: Dizzy <Loren Gasca PA-C - Last Filed: 02/11/25 13:11> Time Seen by Provider: 02/11/25 15:04 <Loren Gasca PA-C - Last Filed: 02/11/25 13:11> Focused HPI: 54 y/o F presents to the ED for intermittent vertigo for months. Pt states her symptoms are worse when she moves her head quickly, like when she rolls over in bed. States today she was stepping down a ladder and she became very lightheaded, felt like she was going to pass out so came to the ED. Had some associated palpitations. Denies chest pain or dyspnea. Has had some associated nasal congestion for which she has been taking Maddie with improvement. Denies new vision changes, focal numbness and weakness. GENERAL: Well-appearing, well-nourished, and in no acute distress. HEAD: Normocephalic, atraumatic. CHEST: Clear to auscultation. ?No respiratory distress. HEART: Regular rate and rhythm.? NEURO: ?Alert and oriented x3. Patient screened in triage and initial orders placed.? ?Additional care and disposition to be based upon?diagnostic testing and treatment. <Loren Gasca PA-C - Last Filed: 02/11/25 13:11> History of Present Illness HPI Narrative: I agree with the above HPI <Lyle Ellis MD - Last Filed: 02/11/25 18:49> Related Data Allergies/Adverse Reactions: Allergies Allergy/AdvReac Type Severity Reaction Status Date / Time No Known Allergies Allergy Verified 02/11/25 14:17 <Loren Gasca PA-C - Last Filed: 02/11/25 13:11> Review of Systems 2 Review of Systems: All systems reviewed & are unremarkable except as noted in HPI and below <Lyle Ellis MD - Last Filed: 02/11/25 18:49> Exam 2 Narrative: APPEARANCE: Well appearing, no pain, no distress, well-nourished. HEAD: normocephalic, atraumatic. EYES: PERRLA/EOMI, conjunctivae clear. NOSE: Normal no drainage EARS:TMS clear with good light reflex. THROAT: Pharynx clear, no exudate. NECK: Supple. No adenopathy, no masses. RESPIRATORY: Airway patent, respirations nonlabored. Clear to auscultation bilaterally, no rales, rhonchi, wheezing. CARDIOVASCULAR: Regular rate and rhythm without murmurs rubs or gallops. ABDOMINAL: Soft, nontender, nondistended, normal bowel sounds MUSCULOSKELETAL: Moves all extremities. Strength/ROM intact, No edema, No calf tenderness. NEURO: Alert. Cranial nerves II through XII intact. Good gait. Good coordination. Normal ambulation SKIN: Warm, dry. Normal Color <Lyle Elils MD - Last Filed: 02/11/25 18:49> Course Vital Signs Vital signs: Vital Signs Respiratory Rate 16 02/11/25 12:54 Temperature 98 F 02/11/25 16:33 Pulse Rate 78 02/11/25 16:33 Respiratory Rate 14 02/11/25 16:33 Blood Pressure 124/78 02/11/25 16:33 Pulse Oximetry 100 02/11/25 16:33 <Loren Gasca PA-C - Last Filed: 02/11/25 13:11> Vital Signs Respiratory Rate 16 02/11/25 12:54 Temperature 98 F 02/11/25 16:33 Pulse Rate 78 02/11/25 16:33 Respiratory Rate 14 02/11/25 16:33 Blood Pressure 124/78 02/11/25 16:33 Pulse Oximetry 100 02/11/25 16:33 <Lyle Ellis MD - Last Filed: 02/11/25 18:49> MDM - Dizziness MDM Narrative Medical decision making narrative: 54-year-old female present to the emergency department for evaluation for vertigo symptoms. Patient's vertigo was resolved with meclizine. Patient is currently afebrile with no leukocytosis hemoglobin 14.5. INR is 1.0. No acute abnormalities on the patient's CMP patient was negative for influenza RSV and COVID. Chest x-ray shows no acute cardiopulmonary abnormality. EKG shows normal sinus rhythm. Patient has a normal neuro exam with no focal neuro deficit. Patient was able to a.m. but in the emergency department without any issues after the meclizine. Patient does describe symptoms of benign positional vertigo in this was improved with treatment. Patient was encouraged close follow-up with neurology for vestibular issues. <Lyle Ellis MD - Last Filed: 02/11/25 18:49> Differential Diagnosis Differential diagnosis: Likely benign paroxysmal positional vertigo, orthostatic hypotension, vertebral basilar insufficiency, cerebrovascular accident, acute vestibular neuronitis and transient cerebral ischemia <Lyle Ellis MD - Last Filed: 02/11/25 18:49> Lab Data Attestation: I reviewed the patient's lab results. <Lyle Ellis MD - Last Filed: 02/11/25 18:49> Result diagrams: 02/11/25 14:28 02/11/25 14:28 <Loren Gasca PA-C - Last Filed: 02/11/25 13:11> Labs: Lab Results 02/11/25 Range/Units 14:28 WBC 6.5 (4.5-10.0) K/mm3 RBC 5.11 (4.2-5.4) M/mm3 Hgb 14.5 (12.0-15.0) g/dL Hct 43.8 (37.0-47.0) % MCV 85.7 (80-100) fl MCH 28.4 (26-34) pg MCHC 33.1 (32-36) g/dl RDW 12.2 (11.5-14.5) % Plt Count 259 (150-375) k/mm3 MPV 9.7 (7.4-10.4) fl Immature Gran % (Auto) 0.3 (0-0.5) % Neut % (Auto) 63.2 (45.5-73.1) % Lymph % (Auto) 26.0 (18.3-44.2) % [place] % (Auto) 9.2 H (2.6-8.5) % Eos % (Auto) 0.8 (0-4.4) % Baso % (Auto) 0.5 (0.2-1.2) % Lymph # (Auto) 1.70 (0.9-3.2) K/mm3 [place] # (Auto) 0.6 (0.1-0.6) K/mm3 Eos # (Auto) 0.1 (0-0.3) K/mm3 Baso # (Auto) 0.0 (0.0-0.1) K/mm3 Abs Immat Gran (auto) 0.02 (0.00-0.031) K/mm3 Absolute Neuts (auto) 4.1 (1.3-6.7) K/mm3 Absolute Nucleated RBC 0.000 (0.0-0.012) K/mm3 Nucleated RBC % 0.0 (0.0-0.2) % PT 13.1 (11.1-14.7) Seconds INR 1.0 APTT 23.0 (22.3-36.8) Seconds Sodium 142 (137-145) mmol/L Potassium 3.8 (3.4-5.0) mmol/L Chloride 107 (98-107) mmol/L Carbon Dioxide 25 (22-30) mmol/L Anion Gap 10 (4-12) mmol/L BUN 12 (7-17) mg/dL Creatinine 0.63 L (0.7-1.0) mg/dL Estim Creat Clear Calc 90 ml/min Estimated GFR > 60 (59 - ) Glucose 99 (65-110) mg/dL Calcium 10.0 (8.4-10.2) mg/dL Magnesium 2.2 (1.6-2.3) mg/dL Total Bilirubin 0.4 (0.2-1.3) mg/dL AST 35 (14-36) U/L ALT 24 (6-35) U/L Alkaline Phosphatase 98 (38-126) U/L Troponin I < 0.012 (0.000-0.034) ng/mL Total Protein 8.0 (6.3-8.2) g/dL Albumin 5.0 (3.5-5.1) g/dL TSH (Reflex) 1.100 (0.465-4.68) uIU/mL Influenza A (RT-PCR) Negative (Negative) Influenza B (RT-PCR) Negative (Negative) RSV (RT-PCR) Negative (Negative) SARS-CoV-2 RNA (RT-PCR) Negative (Negative) <Loren Gasca PA-C - Last Filed: 02/11/25 13:11> Lab Results 02/11/25 Range/Units 14:28 WBC 6.5 (4.5-10.0) K/mm3 RBC 5.11 (4.2-5.4) M/mm3 Hgb 14.5 (12.0-15.0) g/dL Hct 43.8 (37.0-47.0) % MCV 85.7 (80-100) fl MCH 28.4 (26-34) pg MCHC 33.1 (32-36) g/dl RDW 12.2 (11.5-14.5) % Plt Count 259 (150-375) k/mm3 MPV 9.7 (7.4-10.4) fl Immature Gran % (Auto) 0.3 (0-0.5) % Neut % (Auto) 63.2 (45.5-73.1) % Lymph % (Auto) 26.0 (18.3-44.2) % [place] % (Auto) 9.2 H (2.6-8.5) % Eos % (Auto) 0.8 (0-4.4) % Baso % (Auto) 0.5 (0.2-1.2) % Lymph # (Auto) 1.70 (0.9-3.2) K/mm3 [place] # (Auto) 0.6 (0.1-0.6) K/mm3 Eos # (Auto) 0.1 (0-0.3) K/mm3 Baso # (Auto) 0.0 (0.0-0.1) K/mm3 Abs Immat Gran (auto) 0.02 (0.00-0.031) K/mm3 Absolute Neuts (auto) 4.1 (1.3-6.7) K/mm3 Absolute Nucleated RBC 0.000 (0.0-0.012) K/mm3 Nucleated RBC % 0.0 (0.0-0.2) % PT 13.1 (11.1-14.7) Seconds INR 1.0 APTT 23.0 (22.3-36.8) Seconds Sodium 142 (137-145) mmol/L Potassium 3.8 (3.4-5.0) mmol/L Chloride 107 (98-107) mmol/L Carbon Dioxide 25 (22-30) mmol/L Anion Gap 10 (4-12) mmol/L BUN 12 (7-17) mg/dL Creatinine 0.63 L (0.7-1.0) mg/dL Estim Creat Clear Calc 90 ml/min Estimated GFR > 60 (59 - ) Glucose 99 (65-110) mg/dL Calcium 10.0 (8.4-10.2) mg/dL Magnesium 2.2 (1.6-2.3) mg/dL Total Bilirubin 0.4 (0.2-1.3) mg/dL AST 35 (14-36) U/L ALT 24 (6-35) U/L Alkaline Phosphatase 98 (38-126) U/L Troponin I < 0.012 (0.000-0.034) ng/mL Total Protein 8.0 (6.3-8.2) g/dL Albumin 5.0 (3.5-5.1) g/dL TSH (Reflex) 1.100 (0.465-4.68) uIU/mL Influenza A (RT-PCR) Negative (Negative) Influenza B (RT-PCR) Negative (Negative) RSV (RT-PCR) Negative (Negative) SARS-CoV-2 RNA (RT-PCR) Negative (Negative) <Lyle Ellis MD - Last Filed: 02/11/25 18:49> Discharge Plan Discharge Clinical Impression: Vertigo <Loren Gasca PA-C - Last Filed: 02/11/25 13:11> Patient Disposition: Home <Loren Gasca PA-C - Last Filed: 02/11/25 13:11> Condition: Stable <Loren Gasca PA-C - Last Filed: 02/11/25 13:11> Instructions: Antibiotic Form, Benign Paroxysmal Positional Vertigo (ED) <Loren Gasca PA-C - Last Filed: 02/11/25 13:11> Additional Instructions: Meclizine as needed for vertigo control. Have close follow-up with your primary care physician. Have close follow-up with Neurology. <Loren Gasca PA-C - Last Filed: 02/11/25 13:11> Patient Language: Amharic <Loren Gasca PA-C - Last Filed: 02/11/25 13:11> Prescriptions: New meclizine 25 mg tablet 25 mg PO BID PRN (Reason: dizziness) 7 Days Qty: 14 0RF No Action benzonatate 200 mg capsule 200 mg PO TID PRN (Reason: cough) Qty: 20 0RF <Loren Gasca PA-C - Last Filed: 02/11/25 13:11> Follow-up/Referrals: Cat,RAFAEL Carrasco [Primary Care Provider] - Mildred Tom MD [Physician] - <Loren Gasca PA-C - Last Filed: 02/11/25 13:11>
--- OUTSIDE RECORDS SUMMARY | 2025-02-11 13:35 | XMS_ITS | Clinical Summary ---
Author Organization [facility] Address [address] [place] [address] Care Team Providers Care Residential Lawn Specialist Name Role Phone Danial Pereira MD Primary Care Provider Source Comments [facility],non-owned Affiliates and Associated Physician Practices is amultiple site organization consisting of ambulatory clinics and hospital sitesin [place], [place], [place] and [place]. This disclosure is being madepursuant to the Care Everywhere program and may not contain all information available regarding this patient. Last updated 18.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
--- OUTSIDE RECORDS SUMMARY | 2025-02-11 13:35 | XMS_ITS | Encounter Summary ---
Author Organization [facility] Address [address] [place] [address] Care Team Providers Care Transfer Coordinator Name Role Phone Danial Pereira MD Primary Care Provider Encounter Details Date Type Department Care Team (Late st Contact Info) Description 09/05/2020 Lab Requisition [facility] [address] [place] [address] Leyda Mayo MD [address] [place] [address] Social History Tobacco Use Types Packs/Day Years Used Date Smoking Tobacco: Never Assessed Comments Unknown Sex and Gender Information Value Date Recorded Sex Assigned at Not on file 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 Gender Identity Not on file Sexual Orientation Not on file documented as of this encounter Plan of Treatment Not on file documented as of this encounter Procedures Procedure Name Priority Date/Time Associated Diagnosis Comments DERMATOPATHOLOGY Routine 09/04/2020 3:33 AM SKIN INSTALLER documented in this encounter Results * DERMATOPATHOLOGY (09/04/2020 3:33 AM SKIN INSTALLER) Case Report Dermatopathology Report Case: [id number] Authorizing Provider: Leyda Mayo MD Collected: 09/04/2020 03:33 AM Ordering Location: [facility] Received: 09/05/2020 07:47 AM Pathologist: Corinna Tracy MD Specimens: A) - Skin, upper back B) - Skin, sternal notch 0 2:09 PM SKIN INSTALLER DERMATOPATHOLOGY LABORATORY Final Diagnosis Specimen A. SKIN, upper back: SQUAMOUS CELL CARCINOMA, WELL DIFFERENTIATED (C44.529) Specimen B. 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 0 2:09 PM [facility] DERMATOPATHOLOGY LABORATORY Gross Description Specimen A: Received is one formalin filled container labeled with the patient's name and designated upper back. The specimen consists of a shave measuring [id number], bisected. Jar 0. Specimen B: Received is one formalin filled container labeled with the patient's name and designated sternal notch. The specimen consists of a shave measuring [id number]. Jar 0. 0 2:09 PM [facility] DERMATOPATHOLOGY LABORATORY Microscopic Description Specimen A. SKIN, upper back: Arising in the epidermis and extending into the dermis there are irregularly shaped aggregates of keratinocytes showing evidence of premature cornification. Specimen B. SKIN, sternal notch: The epidermis shows parakeratosis, full thickness disorderly maturation of keratinocytes, mitoses at different levels, and dyskeratotic cells. There is a column of marked compact hyperkeratosis. 0 2:09 PM [facility] DERMATOPATHOLOGY LABORATORY Disclaimer An external and internal positive and negative controls are appropriate for the histochemical, immunohistochemical and immunofluorescence stain(s) in this case (if any), except where stated explicitly. The performance characteristics of the stain(s) cited in this report were developed and its performance characteristic determined by the Dermatopathology Laboratory at [facility], directed by Dr. Chava Parham. These tests need not be, and therefore are not, approved by the [place] Food and Drug Administration. The tests are used for clinical purposes. Billing Codes Specimen Charges Stain Charges 16620 [id number] 1 1 0 2:09 PM SKIN INSTALLER DERMATOPATHOLOGY LABORATORY Embedded Images 0 2:09 PM [facility] DERMATOPATHOLOGY LABORATORY Pathology/Cytology TISSUE SPECIMEN FROM SKIN / Unknown 09/04/2020 3:33 AM SKIN INSTALLER 09/05/2020 7:47 AM SKIN INSTALLER Miscellaneous samples (specimen) TISSUE SPECIMEN FROM SKIN / Unknown 09/04/2020 3:33 AM SKIN INSTALLER 09/05/2020 7:47 AM SKIN INSTALLER us Leyda Mayo MD LAB - PATHOLOGY/CYTOLOGY OR DERABLES Final Result DERMATOPATHOLOGY LABORATORY [facility] - Department of Dermatology [address] [phone] documented in this encounter Visit Diagnoses Not on filedocumented in this encounter Care Teams Transfer Coordinator Relationship Specialty Start Date End Date Danial Pereira MD [address] [place] [address] PCP - General 03/21/12 documented as of this encounter
[2025-02-11 14:13] VITALS: BP 135/86; PULSE 78; RESP 13; O2SAT 100
[2025-02-11 14:33] LABS: Basophils Percent Auto 0.5 % (0.2-1.2); Eosinophils Absolute Auto 0.1 K/mm3 (0-0.3); Eosinophils Percent Auto 0.8 % (0-4.4); Hematocrit 43.8 % (37.0-47.0); Hemoglobin 14.5 g/dL (12.0-15.0); Immature Granulocyte Absolute 0.02 K/mm3 (0.00-0.031); Immature Granulocyte Percent A 0.3 % (0-0.5); Mean Corpuscular HGB Conc 33.1 g/dl (32-36); Mean Corpuscular Hemoglobin 28.4 pg (26-34); Mean Corpuscular Volume 85.7 fl (80-100); Mean Platelet Volume 9.7 fl (7.4-10.4); Monocytes Absolute Auto 0.6 K/mm3 (0.1-0.6); Monocytes Percent Auto 9.2 % (2.6-8.5); Neutrophils Absolute Auto 4.1 K/mm3 (1.3-6.7); Neutrophils Percent Auto 63.2 % (45.5-73.1); Platelet Count Result 259 k/mm3 (150-375); Red Blood Count 5.11 M/mm3 (4.2-5.4); Red Cell Distribution Width 12.2 % (11.5-14.5); White Blood Count 6.5 K/mm3 (4.5-10.0)
[2025-02-11] MEDS: MECLIZINE HCL 25 MG TABLET PO (14:33)
[2025-02-11 14:43] LABS: Alanine Aminotransferase 24 U/L (6-35); Alkaline Phosphatase 98 U/L (38-126); Anion Gap 10 mmol/L (4-12); Aspartate Amino Transferase 35 U/L (14-36); Bilirubin,Total 0.4 mg/dL (0.2-1.3); Blood Urea Nitrogen 12 mg/dL (7-17); Carbon Dioxide 25 mmol/L (22-30); Chloride 107 mmol/L (98-107); Estimated CRCL calculation 90 ml/min; Estimated Glomerular Filt Rate > 60; Glucose 99 mg/dL (65-110); Magnesium 2.2 mg/dL (1.6-2.3); Potassium 3.8 mmol/L (3.4-5.0); Sodium 142 mmol/L (137-145)
[2025-02-11 14:46] LABS: Prothrombin Time 13.1 Seconds (11.1-14.7)
[2025-02-11 14:55] LABS: Troponin I < 0.012 ng/mL (0.000-0.034)
[2025-02-11 15:20] LABS: Influenza A QL RT-PCR Negative (Negative); Influenza B QL RT-PCR Negative (Negative); RSV RNA, RT-PCR Negative (Negative); SARS-CoV-2 RNA PCR Negative (Negative)
[2025-02-11 15:30] VITALS: BP 124/78; PULSE 80; RESP 20; O2SAT 100
[2025-02-11 16:33] VITALS: BP 124/78; PULSE 78; RESP 14; TEMP 36.6; O2SAT 100
== END 2025-02-11 16:35 | disposition home or self-care (01) ==
PROVIDERS: Physician Assistant; Emergency Provider Emergency Medicine; PCP Physician Assistant
DX: R42 Dizziness and giddiness (principal); Z20.822 Contact with and (suspected) exposure to COVID-19; R94.31 Abnormal electrocardiogram [ECG] [EKG]
CPT/HCPCS: 36415; 71045; 80053; 83735; 84443; 84484; 85025; 85610; 85730; 87637; 93005; 99284; A9270